=== PATIENT | female | born 1955 | race African-American/Black ===

== ENCOUNTER 2021-10-28 16:13 | Observation (INO) | payer OTHER, MEDICAID ==
[2021-10-28 17:02] LABS: ALT (SGPT) 15 U/L (8-55); AST (SGOT) 17 U/L (5-34); Albumin 3.2 g/dL (3.4-4.8); Alkaline Phosphatase 122 U/L (40-110); Anion Gap 13 mmol/L (10-20); BUN (Urea Nitrogen) 20 mg/dL (9.8-20.1); Bilirubin, Total 0.4 mg/dL (0.2-1.2); Calc. Creatinine Clearance 0 mL/min (70-130); Calcium 9.1 mg/dL (7.8-10.44); Carbon Dioxide 28 mmol/L (23-31); Chloride 105 mmol/L (98-107); Globulin 3.8 g/dL (2.4-3.5); Glucose 80 mg/dL (80-115); Potassium 4.5 mmol/L (3.5-5.1); Sodium 141 mmol/L (136-145)
[2021-10-28 17:14] LABS: #Eosinphils 0.4 10x3/uL (0.0-0.5); #Monocytes 0.8 10x3/uL (0.0-1.1); #Neutrophils 4.8 10x3/uL (1.5-8.4); %Basophils 0.4 % (0.0-2.0); %Eosinophils 5.1 % (0.0-6.0); %Monocytes 11.1 % (0.0-10.0); %Neutrophils 70.1 % (40.0-75.0); Hemoglobin 11.9 g/dL (12.0-15.5); Mean Corpuscular HGB CONC 31.2 g/dL (32.0-36.0); Mean Corpuscular Volume 102.4 fl (81.6-98.3); Mean Platelet Volume 12.7 fl (7.4-10.4); Platelet Count 90 10x3/uL (150-450); RBC Distribution Width 16.3 % (11.5-14.5); Red Blood Cell (RBC) Count 3.72 10x6/uL (3.90-5.03); White Blood Cell (WBC) Count 6.9 10x3/uL (3.5-10.5)
[2021-10-28 17:25] LABS: CKMB 1.3 ng/mL (0-6.6)
[2021-10-28] MEDS ORDERED: Furosemide 20 MG/2 ML VIAL ONE (17:45)
[2021-10-28 18:31] LABS: SARS-CoV-2 NAA Rapid Test Not Detected (NotDetected)
[2021-10-28] MEDS ORDERED: Nitroglycerin 0.4 MG TAB (25 Tab Bottle) SL PRN (19:34)
[2021-10-28 19:53] LABS: D-Dimer Test 2.79 mg/L FEU (0.19-0.50); PTT 25.2 sec (22.0-33.0); Prothrombin Time 10.5 sec (9.5-12.1)
[2021-10-28] MEDS ORDERED: Atorvastatin Calcium 20 MG TAB PO SCH ×2 (21:00→22:15)
[2021-10-28 21:11] LABS: Hemoglobin 12.4 g/dL (12.0-15.5); Platelet Count 90 10x3/uL (150-450)
[2021-10-28] MEDS ORDERED: Oxybutynin 5 MG TAB PO SCH (22:15)
[2021-10-28] MEDS ORDERED: rOPINIRole HCl 1 MG TAB PO SCH (22:15)
[2021-10-28 22:30] VITALS: BMI 68.4
[2021-10-28] MEDS ORDERED: Heparin 10,000 UNITS/ 10 ML VIAL SLOW IVP SCH (23:59)
[2021-10-29] MEDS: Heparin 25,000 units/D5W 500 ML IVPB SCH ×2 (00:48→01:18)
[2021-10-29] MEDS ORDERED: Lorazepam 1 MG TAB PO SCH (04:00)
[2021-10-29 04:13] LABS: Anion Gap 13 mmol/L (10-20); BUN (Urea Nitrogen) 20 mg/dL (9.8-20.1); Calc. Creatinine Clearance 68 mL/min (70-130); Calcium 9.7 mg/dL (7.8-10.44); Carbon Dioxide 28 mmol/L (23-31); Chloride 104 mmol/L (98-107); Glucose 129 mg/dL (80-115); Magnesium 2.1 mg/dL (1.6-2.6); Potassium 4.6 mmol/L (3.5-5.1); Sodium 140 mmol/L (136-145)
[2021-10-29 04:32] LABS: #Basophils 0.1 10x3/uL (0.0-0.2); #Eosinphils 0.4 10x3/uL (0.0-0.5); #Monocytes 0.8 10x3/uL (0.0-1.1); %Basophils 0.7 % (0.0-2.0); %Eosinophils 5.6 % (0.0-6.0); %Lymphocytes 13.9 % (18.0-47.0); %Monocytes 10.3 % (0.0-10.0); %Neutrophils 69.2 % (40.0-75.0); Hemoglobin 12.5 g/dL (12.0-15.5); Mean Corpuscular HGB CONC 31.6 g/dL (32.0-36.0); Mean Corpuscular Hemoglobin 31.9 pg (27.0-33.0); Platelet Count 95 10x3/uL (150-450); RBC Distribution Width 16.3 % (11.5-14.5); Red Blood Cell (RBC) Count 3.92 10x6/uL (3.90-5.03); White Blood Cell (WBC) Count 7.3 10x3/uL (3.5-10.5)
[2021-10-29 05:46] LABS: Platelet Morphology Comment Appears Decreased
[2021-10-29 05:47] LABS: Anisocytosis SLIGHT = 6-15 cells (100X) (0-5/hpf); Macrocytosis SLIGHT = 6-15 cells (100X) (0-5/hpf); Microcytosis SLIGHT = 6-15 cells (100X) (0-5/hpf); Polychromasia SLIGHT = 2-3 cells (100X) (0-2/hpf)
[2021-10-29] MEDS: Furosemide 40 MG TAB PO SCH (08:03)
[2021-10-29 08:58] LABS: PTT 170.8 sec (22.9-36.1)
[2021-10-29] MEDS ORDERED: Enoxaparin Sodium 30 MG/0.3 ML SYRINGE SC SCH (09:00)
[2021-10-29] MEDS ORDERED: Alogliptin 25 MG TAB PO SCH (09:00)
[2021-10-29] MEDS: Ferrous Sulfate 325 MG TAB PO SCH (09:33)
[2021-10-29] MEDS: Folic Acid 1 MG TAB PO SCH (09:34)
[2021-10-29] MEDS: Cyanocobalamin (Vitamin B-12) 1,000 MCG TAB PO SCH (09:35)
[2021-10-29] MEDS: Aspirin Chewable 81 MG TAB PO SCH (12:27)
[2021-10-29] MEDS ORDERED: Acetaminophen 325 MG TAB PO PRN (14:03)
[2021-10-29] MEDS ORDERED: HYDROcodone/Acetaminophen 5/325 mg Tablet PO PRN (14:03)
[2021-10-29] MEDS: ALPRAZolam 0.25 MG TAB PO PRN ×2 (14:59→22:22)
[2021-10-29] MEDS ORDERED: rOPINIRole HCl 1 MG TAB PO SCH (21:00)
[2021-10-29] MEDS ORDERED: Atorvastatin Calcium 20 MG TAB PO SCH (21:00)
[2021-10-29] MEDS ORDERED: Oxybutynin 5 MG TAB PO SCH (21:00)
[2021-10-29] MEDS ORDERED: Melatonin 3 MG TAB PO SCH (21:00)
[2021-10-30] MEDS: Ferrous Sulfate 325 MG TAB PO SCH (08:26)
[2021-10-30] MEDS: ALPRAZolam 0.25 MG TAB PO PRN (08:26)
[2021-10-30] MEDS: Furosemide 40 MG TAB PO SCH (08:27)
[2021-10-30] MEDS: Aspirin Chewable 81 MG TAB PO SCH (08:27)
[2021-10-30] MEDS: Folic Acid 1 MG TAB PO SCH (08:27)
[2021-10-30] MEDS: Cyanocobalamin (Vitamin B-12) 1,000 MCG TAB PO SCH (08:27)
[2021-10-30 16:36] VITALS: BP 140/71; TEMP 97
== END 2021-10-30 19:06 | disposition home health service (06) ==
LOC: CSHERS 16:13 → CSHTELE 21:58 → INTOOBSV 21:58
PROVIDERS: ADMIT Family Medicine; ATTEND Family Medicine
DX: R07.81 Pleurodynia (principal); R06.02 Shortness of breath; I13.0 Hypertensive heart and chronic kidney disease with heart failure and stage 1 through stage 4 chronic kidney disease, or unspecified chronic kidney disease; E11.22 Type 2 diabetes mellitus with diabetic chronic kidney disease; N18.4 Chronic kidney disease, stage 4 (severe); I50.22 Chronic systolic (congestive) heart failure; E78.5 Hyperlipidemia, unspecified; G47.33 Obstructive sleep apnea (adult) (pediatric); J45.20 Mild intermittent asthma, uncomplicated; E66.01 Morbid (severe) obesity due to excess calories; Z68.44 Body mass index [BMI] 60.0-69.9, adult; Z79.82 Long term (current) use of aspirin; Z79.84 Long term (current) use of oral hypoglycemic drugs; Z79.899 Other long term (current) drug therapy; Z88.8 Allergy status to other drugs, medicaments and biological substances; Z91.041 Radiographic dye allergy status; Z20.822 Contact with and (suspected) exposure to COVID-19
CPT/HCPCS: 71045; 78451; 80048; 80053; 82553; 82962 ×3; 83735; 83880; 84484 ×2; 85014; 85018; 85025 ×2; 85049; 85379; 85610; 85730 ×3; 93005 ×2; 93970; 94660; 94760; 96374; 99285; A9540; U0002; 36415; 36416; 93010; 96365; 96366; 96375; 96376; G0378; J1644; J1940

== ENCOUNTER 2021-11-12 00:57 | Inpatient (IN) | payer OTHER, MEDICAID ==
[2021-11-12] MEDS ORDERED: Acetaminophen 325 MG TAB PO PRN (01:33)
[2021-11-12] MEDS ORDERED: Dextrose 5% in Water 1,000 ML IV PRN (01:33)
[2021-11-12] MEDS ORDERED: Dextrose 50% Abboject 50 ML SYRINGE SLOW IVP PRN (01:33)
[2021-11-12] MEDS ORDERED: Senokot S 8.6-50 MG TAB PO PRN (01:33)
[2021-11-12] MEDS ORDERED: Guaifenesin DM 100-10/5 ML UDCUP PO PRN ×2 (01:33→11:29)
[2021-11-12] MEDS ORDERED: Lorazepam 0.5 MG TAB PO PRN (01:37)
[2021-11-12] MEDS: Ondansetron PF 4 MG/2 ML Vial IVP PRN (04:17)
[2021-11-12 05:27] LABS: Anion Gap 13 mmol/L (10-20); BUN (Urea Nitrogen) 14 mg/dL (9.8-20.1); Calc. Creatinine Clearance 68 mL/min (70-130); Calcium 8.7 mg/dL (7.8-10.44); Carbon Dioxide 28 mmol/L (23-31); Chloride 104 mmol/L (98-107); Estimated GFR 25; Glucose 106 mg/dL (80-115); Potassium 5.2 mmol/L (3.5-5.1); Sodium 140 mmol/L (136-145)
[2021-11-12] MEDS: Furosemide 40 MG/4 ML VIAL SLOW IVP SCH ×2 (05:35→13:47)
[2021-11-12] MEDS: Mometasone/Formoterol 200/5 60 PUFF INH SCH ×2 (06:38→21:55)
[2021-11-12] MEDS ORDERED: Alogliptin 6.25 MG TAB PO SCH (09:00)
[2021-11-12] MEDS: hydrALAZINE 25 MG TAB PO SCH ×2 (09:35→21:41)
[2021-11-12] MEDS: Enoxaparin Sodium 30 MG/0.3 ML SYRINGE SC SCH (09:35)
[2021-11-12] MEDS: Escitalopram Oxalate 10 mg Tablet PO SCH (09:36)
[2021-11-12] MEDS: Ferrous Sulfate 325 MG TAB PO SCH (09:36)
[2021-11-12] MEDS: Cyanocobalamin (Vitamin B-12) 1,000 MCG TAB PO SCH (09:36)
[2021-11-12] MEDS: Folic Acid 1 MG TAB PO SCH (09:36)
[2021-11-12] MEDS: Aspirin Chewable 81 MG TAB PO SCH (09:37)
[2021-11-12 09:43] LABS: CKMB 0.9 ng/mL (0-6.6)
[2021-11-12] MEDS ORDERED: Acetaminophen 650 MG Suppository PR PRN (11:29)
[2021-11-12] MEDS ORDERED: diphenhydrAMINE 25 MG CAP PO PRN (11:29)
[2021-11-12] MEDS ORDERED: Moisturizing Cream (Eucerin) 113 GM JAR TOP PRN (11:29)
[2021-11-12] MEDS ORDERED: Artificial Tear Sol 15 ML BOT EA EYE PRN (11:29)
[2021-11-12] MEDS ORDERED: Sodium Chloride 0.65% Nasal 44 ML BOT EA NARE PRN (11:29)
[2021-11-12] MEDS ORDERED: Cepastat Lozenges 1 LOZ PO PRN (11:29)
[2021-11-12] MEDS ORDERED: Ipratropium Oral Inhaler INH PRN (11:29)
[2021-11-12] MEDS ORDERED: HYDROcodone/Acetaminophen 5/325 mg Tablet PO PRN (11:29)
[2021-11-12] MEDS ORDERED: Electrolyte Replacement Protocol 1 EACH FS SCH (11:30)
[2021-11-12] MEDS ORDERED: Pharmacy to Dose REMDESIVIR IVPB PRN (12:41)
[2021-11-12] MEDS ORDERED: Ipratropium/Albuterol Sulfate 4 GM AER IH PRN (13:20)
[2021-11-12] MEDS: Carvedilol 6.25 MG TAB PO SCH (16:45)
[2021-11-12] MEDS: Atorvastatin Calcium 20 MG TAB PO SCH (21:40)
[2021-11-12] MEDS: Calcitriol 0.25 MCG CAP PO SCH (21:40)
[2021-11-12] MEDS: rOPINIRole HCl 1 MG TAB PO SCH (21:41)
[2021-11-12] MEDS: pyridOXINE 50 MG (B6) TAB PO SCH (21:41)
[2021-11-12] MEDS: Oxybutynin 5 MG TAB PO SCH (21:41)
[2021-11-13 04:50] LABS: Actual Bicarbonate (HCO3v) 26 mEq/L (22-28); Base Excess -2.8 mEq/L (-2.0 to +3.0); Calcium, Ionized (venous) 1.18 mmol/L (1.16-1.32); Chloride (VBG) 104 mmol/L (98-106); Critical Notified By: CP.PH; Hemoglobin (Hb) 11.8 g/dL (11.7-16.0); Potassium (VBG) 5.15 mmol/L (3.70-5.30); Puncture Site RBA; Sodium 134.8 mmol/L (133-146); pH (venous) 7.23 (7.32-7.43)
[2021-11-13 04:52] LABS: Hemoglobin 10.9 g/dL (12.0-15.5); Mean Corpuscular HGB CONC 29.1 g/dL (32.0-36.0); Mean Corpuscular Hemoglobin 30.8 pg (27.0-33.0); Mean Corpuscular Volume 105.6 fl (81.6-98.3); Platelet Count 75 10x3/uL (150-450); RBC Distribution Width 15.6 % (11.5-14.5); Red Blood Cell (RBC) Count 3.54 10x6/uL (3.90-5.03); White Blood Cell (WBC) Count 5.1 10x3/uL (3.5-10.5)
[2021-11-13 04:55] LABS: Anion Gap 14 mmol/L (10-20); BUN (Urea Nitrogen) 19 mg/dL (9.8-20.1); Calc. Creatinine Clearance 54 mL/min (70-130); Calcium 8.7 mg/dL (7.8-10.44); Carbon Dioxide 26 mmol/L (23-31); Chloride 103 mmol/L (98-107); Estimated GFR 19; Glucose 89 mg/dL (80-115); Phosphorus 5.1 mg/dL (2.3-4.7); Potassium 5.3 mmol/L (3.5-5.1); Sodium 138 mmol/L (136-145)
[2021-11-13] MEDS: Furosemide 40 MG/4 ML VIAL SLOW IVP SCH ×2 (06:19→14:08)
[2021-11-13] MEDS: Mometasone/Formoterol 200/5 60 PUFF INH SCH ×2 (06:50→22:30)
[2021-11-13 07:13] LABS: MDiff Complete? YES
[2021-11-13 07:15] LABS: Anisocytosis SLIGHT = 6-15 cells (100X) (0-5/hpf); Hypochromia SLIGHT = 6-15 cells (100X) (0-5/hpf); Macrocytosis SLIGHT = 6-15 cells (100X) (0-5/hpf); Stomatocytes SLIGHT = 2-5 cells (100X) (0-1/hpf)
[2021-11-13 07:16] LABS: Platelet Morphology Comment Appears Decreased
[2021-11-13 07:18] LABS: Band 4 % (5-11); Eosinophils 1 % (0-10); Lymphocytes 9 % (21-51); Metamyelocyte 2 % (0-0); Monocytes 19 % (0-10); Neutrophil 62 % (42-75); Reactive Lymphocytes 1 % (0-10)
[2021-11-13] MEDS: Ferrous Sulfate 325 MG TAB PO SCH (09:24)
[2021-11-13] MEDS: Enoxaparin Sodium 30 MG/0.3 ML SYRINGE SC SCH (09:24)
[2021-11-13] MEDS: Sevelamer Carbonate 800 MG TAB PO SCH ×3 (09:24→17:38)
[2021-11-13] MEDS: Carvedilol 6.25 MG TAB PO SCH ×2 (09:24→17:39)
[2021-11-13] MEDS: Aspirin Chewable 81 MG TAB PO SCH (09:24)
[2021-11-13] MEDS: Cyanocobalamin (Vitamin B-12) 1,000 MCG TAB PO SCH (09:24)
[2021-11-13] MEDS: Folic Acid 1 MG TAB PO SCH (09:25)
[2021-11-13] MEDS: hydrALAZINE 25 MG TAB PO SCH ×2 (09:25→22:32)
[2021-11-13] MEDS: Escitalopram Oxalate 10 mg Tablet PO SCH (09:25)
[2021-11-13] MEDS: Ascorbic Acid 500 mg Chewable Tablet PO SCH (09:25)
[2021-11-13] MEDS: Dexamethasone 20 MG/5 ML VIAL SLOW IVP SCH (09:25)
[2021-11-13 10:43] LABS: Actual Bicarbonate (HCO3a) 26.4 mEq/L (22-28); Base Excess (BEa) -3.7 mEq/L (-2.0 to +3.0); CO2 Tension 76.4 mmHg (35.0-45.0); Calcium, Ionized (arterial) 1.23 mmol/L (1.12-1.30); Carboxyhemoglobin (COHb) 1.1 gm% (0.0-3.0); Hemoglobin (Hb) 11.9 g/dL (12.0-16.0); O2 Tension (PaO2), arterial 98.5 mmHg (> 80.0); Puncture Site LRA; pH, Arterial 7.16 (7.35-7.45)
[2021-11-13] MEDS ORDERED: Magnesium 2 GM/50 ML(in water) 2 GM in Premix Bag 1 BAG IVPB SCH (11:00)
[2021-11-13] MEDS ORDERED: Magnesium 2 GM/50 ML BAG (IN WATER) ONE (12:02)
[2021-11-13 13:11] LABS: Bilirubin Neg (Negative); Blood, Urine 25 (Negative); Glucose, Urine (Dipstick) Normal (Negative); Ketone, Urine Negative (Negative); Leukocyte Negative (Negative); Nitrite Negative (Negative); Protein, Urine (Dipstick) 100 mg/dl (Neg-Trace); Urobilinogen Normal mg/dL (Less than 2)
[2021-11-13 13:12] LABS: Clarity Clear (Clear)
[2021-11-13 13:14] LABS: Anion Gap 14 mmol/L (10-20); BUN (Urea Nitrogen) 22 mg/dL (9.8-20.1); Calc. Creatinine Clearance 50 mL/min (70-130); Calcium 8.8 mg/dL (7.8-10.44); Carbon Dioxide 26 mmol/L (23-31); Chloride 103 mmol/L (98-107); Estimated GFR 18; Glucose 95 mg/dL (80-115); Potassium 5.3 mmol/L (3.5-5.1); Sodium 138 mmol/L (136-145)
[2021-11-13 13:21] LABS: Bacteria/HPF None Seen HPF (None Seen); RBC/HPF 0-3 HPF (0-3); Squamous Epithelial 0-3 HPF (0-3); WBC/HPF None Seen HPF (0-3)
[2021-11-13] MEDS: Atorvastatin Calcium 20 MG TAB PO SCH (22:30)
[2021-11-13] MEDS: pyridOXINE 50 MG (B6) TAB PO SCH (22:31)
[2021-11-13] MEDS: Calcitriol 0.25 MCG CAP PO SCH (22:31)
[2021-11-13] MEDS: Oxybutynin 5 MG TAB PO SCH (22:31)
[2021-11-13] MEDS: rOPINIRole HCl 1 MG TAB PO SCH (22:32)
[2021-11-14] MEDS ORDERED: Calcium Gluc 4.6 MEQ/10 ML (100 MG/ML) SLOW IVP SCH (01:15)
[2021-11-14 01:20] LABS: Actual Bicarbonate (HCO3v) 29 mEq/L (22-28); Base Excess 0.6 mEq/L (-2.0 to +3.0); Calcium, Ionized (venous) 1.12 mmol/L (1.16-1.32); Chloride (VBG) 102 mmol/L (98-106); Hemoglobin (Hb) 11.3 g/dL (11.7-16.0); Potassium (VBG) 4.98 mmol/L (3.70-5.30); Puncture Site Other Site; Sodium 131.9 mmol/L (133-146); pH (venous) 7.25 (7.32-7.43)
[2021-11-14 01:38] LABS: Anion Gap 14 mmol/L (10-20); BUN (Urea Nitrogen) 28 mg/dL (9.8-20.1); Calc. Creatinine Clearance 46 mL/min (70-130); Calcium 8.6 mg/dL (7.8-10.44); Carbon Dioxide 27 mmol/L (23-31); Chloride 99 mmol/L (98-107); Estimated GFR 16; Glucose 88 mg/dL (80-115); Magnesium 2.2 mg/dL (1.6-2.6); Potassium 5.1 mmol/L (3.5-5.1); Sodium 135 mmol/L (136-145)
[2021-11-14] MEDS: Benzonatate 100 MG CAP PO PRN (05:00)
[2021-11-14] MEDS ORDERED: Metoprolol Tartrate 25 MG TAB PO SCH (05:00)
[2021-11-14] MEDS: Furosemide 40 MG/4 ML VIAL SLOW IVP SCH ×2 (05:01→14:44)
[2021-11-14 05:22] LABS: Anion Gap 15 mmol/L (10-20); BUN (Urea Nitrogen) 29 mg/dL (9.8-20.1); Calc. Creatinine Clearance 45 mL/min (70-130); Calcium 8.5 mg/dL (7.8-10.44); Carbon Dioxide 25 mmol/L (23-31); Chloride 100 mmol/L (98-107); Estimated GFR 16; Glucose 80 mg/dL (80-115); Sodium 135 mmol/L (136-145)
[2021-11-14 05:28] LABS: Hemoglobin 10.4 g/dL (12.0-15.5); Mean Corpuscular HGB CONC 30.3 g/dL (32.0-36.0); Mean Corpuscular Hemoglobin 31.1 pg (27.0-33.0); Mean Corpuscular Volume 102.7 fl (81.6-98.3); Mean Platelet Volume 12.2 fl (7.4-10.4); Platelet Count 89 10x3/uL (150-450); RBC Distribution Width 15.7 % (11.5-14.5); Red Blood Cell (RBC) Count 3.34 10x6/uL (3.90-5.03); White Blood Cell (WBC) Count 4.4 10x3/uL (3.5-10.5)
[2021-11-14 07:10] LABS: MDiff Complete? YES
[2021-11-14 07:11] LABS: Platelet Morphology Comment Appears Decreased
[2021-11-14 07:15] LABS: Band 12 % (5-11); Eosinophils 1 % (0-10); Lymphocytes 8 % (21-51); Metamyelocyte 1 % (0-0); Monocytes 21 % (0-10); Neutrophil 55 % (42-75); Reactive Lymphocytes 2 % (0-10)
[2021-11-14] MEDS: Mometasone/Formoterol 200/5 60 PUFF INH SCH ×2 (07:23→21:19)
[2021-11-14] MEDS: Enoxaparin Sodium 30 MG/0.3 ML SYRINGE SC SCH (08:19)
[2021-11-14] MEDS: Dexamethasone 20 MG/5 ML VIAL SLOW IVP SCH (08:19)
[2021-11-14] MEDS: Cyanocobalamin (Vitamin B-12) 1,000 MCG TAB PO SCH (08:20)
[2021-11-14] MEDS: hydrALAZINE 25 MG TAB PO SCH ×2 (08:20→20:37)
[2021-11-14] MEDS: Ferrous Sulfate 325 MG TAB PO SCH (08:20)
[2021-11-14] MEDS: Sevelamer Carbonate 800 MG TAB PO SCH ×3 (08:20→18:08)
[2021-11-14] MEDS: Aspirin Chewable 81 MG TAB PO SCH (08:20)
[2021-11-14] MEDS: Ascorbic Acid 500 mg Chewable Tablet PO SCH (08:20)
[2021-11-14] MEDS: Carvedilol 6.25 MG TAB PO SCH ×2 (08:20→18:08)
[2021-11-14] MEDS: Folic Acid 1 MG TAB PO SCH (08:20)
[2021-11-14] MEDS: Escitalopram Oxalate 10 mg Tablet PO SCH (08:20)
[2021-11-14 13:17] LABS: IFE-Serum Interpretation Note: (.); IgA - Total IgA (Sendout) 366 mg/dL (87-352); Immunoglobulin - G (Sendout) 2183 mg/dL (586-1602); Immunoglobulin - M (Sendout) 86 mg/dL (26-217)
[2021-11-14 13:42] LABS: A/G Ratio 0.7 (0.7-1.7); Albumin 2.9 g/dL (2.9-4.4); Alpha 1 0.4 g/dL (0.0-0.4); Alpha 2 0.8 g/dL (0.4-1.0); Beta 1.1 g/dL (0.7-1.3); Gamma 2.1 g/dL (0.4-1.8); Globulin, Total 4.4 g/dL (2.2-3.9); M-Spike Not Observed g/dL (Not Observed); Protein Electrophoresis Intrp Note: (.)
[2021-11-14] MEDS: Ondansetron PF 4 MG/2 ML Vial IVP PRN (18:15)
[2021-11-14] MEDS: Calcitriol 0.25 MCG CAP PO SCH (20:36)
[2021-11-14] MEDS: Atorvastatin Calcium 20 MG TAB PO SCH (20:36)
[2021-11-14] MEDS: Oxybutynin 5 MG TAB PO SCH (20:37)
[2021-11-14] MEDS: pyridOXINE 50 MG (B6) TAB PO SCH (20:38)
[2021-11-14] MEDS: rOPINIRole HCl 1 MG TAB PO SCH (20:38)
[2021-11-15 04:27] LABS: Hemoglobin 10.6 g/dL (12.0-15.5); Mean Corpuscular HGB CONC 30.5 g/dL (32.0-36.0); Mean Corpuscular Volume 101.5 fl (81.6-98.3); Platelet Count 96 10x3/uL (150-450); RBC Distribution Width 15.6 % (11.5-14.5); Red Blood Cell (RBC) Count 3.42 10x6/uL (3.90-5.03); White Blood Cell (WBC) Count 3.7 10x3/uL (3.5-10.5)
[2021-11-15 04:36] LABS: Anion Gap 15 mmol/L (10-20); BUN (Urea Nitrogen) 38 mg/dL (9.8-20.1); Calc. Creatinine Clearance 43 mL/min (70-130); Calcium 8.7 mg/dL (7.8-10.44); Carbon Dioxide 27 mmol/L (23-31); Chloride 100 mmol/L (98-107); Estimated GFR 14; Glucose 95 mg/dL (80-115); Potassium 4.6 mmol/L (3.5-5.1); Sodium 137 mmol/L (136-145)
[2021-11-15 06:10] LABS: Mean Platelet Volume 12.5 fl (7.4-10.4)
[2021-11-15 06:11] LABS: MDiff Complete? YES
[2021-11-15 06:13] LABS: Platelet Morphology Comment Appears Decreased
[2021-11-15 06:17] LABS: Band 6 % (5-11); Lymphocytes 12 % (21-51); Monocytes 18 % (0-10); Neutrophil 63 % (42-75); Reactive Lymphocytes 1 % (0-10)
[2021-11-15] MEDS: Furosemide 40 MG/4 ML VIAL SLOW IVP SCH (06:35)
[2021-11-15] MEDS: Mometasone/Formoterol 200/5 60 PUFF INH SCH (08:11)
[2021-11-15] MEDS: Cyanocobalamin (Vitamin B-12) 1,000 MCG TAB PO SCH (09:00)
[2021-11-15] MEDS ORDERED: Furosemide 40 MG/4 ML VIAL SLOW IVP SCH (09:00)
[2021-11-15] MEDS: Escitalopram Oxalate 10 mg Tablet PO SCH (09:00)
[2021-11-15] MEDS: Albumin 25% 25 GM/100 ML BOT IVPB SCH ×3 (09:00→20:51)
[2021-11-15] MEDS: Ascorbic Acid 500 mg Chewable Tablet PO SCH (09:01)
[2021-11-15] MEDS: hydrALAZINE 25 MG TAB PO SCH ×2 (09:01→20:51)
[2021-11-15] MEDS: Aspirin Chewable 81 MG TAB PO SCH (09:01)
[2021-11-15] MEDS: Carvedilol 6.25 MG TAB PO SCH ×2 (09:01→18:06)
[2021-11-15] MEDS: Sevelamer Carbonate 800 MG TAB PO SCH ×3 (09:01→18:06)
[2021-11-15] MEDS: Folic Acid 1 MG TAB PO SCH (09:01)
[2021-11-15] MEDS: Dexamethasone 20 MG/5 ML VIAL SLOW IVP SCH (09:02)
[2021-11-15] MEDS: Ferrous Sulfate 325 MG TAB PO SCH (09:02)
[2021-11-15] MEDS: Enoxaparin Sodium 30 MG/0.3 ML SYRINGE SC SCH (09:04)
[2021-11-15] MEDS: Atorvastatin Calcium 20 MG TAB PO SCH (20:51)
[2021-11-15] MEDS: Calcitriol 0.25 MCG CAP PO SCH (20:51)
[2021-11-15] MEDS: rOPINIRole HCl 1 MG TAB PO SCH (20:52)
[2021-11-15] MEDS: Oxybutynin 5 MG TAB PO SCH (20:52)
[2021-11-15] MEDS: pyridOXINE 50 MG (B6) TAB PO SCH (20:52)
[2021-11-16] MEDS: Albumin 25% 25 GM/100 ML BOT IVPB SCH ×4 (03:50→22:19)
[2021-11-16] MEDS: Mometasone/Formoterol 200/5 60 PUFF INH SCH ×3 (04:06→20:20)
[2021-11-16 04:28] LABS: #Monocytes 0.6 10x3/uL (0.0-1.1); #Neutrophils 3.3 10x3/uL (1.5-8.4); %Lymphocytes 9.8 % (18.0-47.0); %Monocytes 13.3 % (0.0-10.0); %Neutrophils 76.7 % (40.0-75.0); Hemoglobin 10.6 g/dL (12.0-15.5); Mean Corpuscular HGB CONC 31.6 g/dL (32.0-36.0); Mean Corpuscular Hemoglobin 31.3 pg (27.0-33.0); Mean Corpuscular Volume 98.8 fl (81.6-98.3); Mean Platelet Volume 12.5 fl (7.4-10.4); Platelet Count 89 10x3/uL (150-450); RBC Distribution Width 15.5 % (11.5-14.5); Red Blood Cell (RBC) Count 3.39 10x6/uL (3.90-5.03); White Blood Cell (WBC) Count 4.3 10x3/uL (3.5-10.5)
[2021-11-16 04:44] LABS: Anion Gap 16 mmol/L (10-20); BUN (Urea Nitrogen) 42 mg/dL (9.8-20.1); Calc. Creatinine Clearance 44 mL/min (70-130); Calcium 8.7 mg/dL (7.8-10.44); Carbon Dioxide 26 mmol/L (23-31); Chloride 99 mmol/L (98-107); Estimated GFR 15; Glucose 90 mg/dL (80-115); Potassium 4.7 mmol/L (3.5-5.1); Sodium 136 mmol/L (136-145)
[2021-11-16] MEDS: Sevelamer Carbonate 800 MG TAB PO SCH ×4 (09:13→16:31)
[2021-11-16] MEDS: Ascorbic Acid 500 mg Chewable Tablet PO SCH (09:13)
[2021-11-16] MEDS: Carvedilol 6.25 MG TAB PO SCH ×2 (09:13→16:31)
[2021-11-16] MEDS: hydrALAZINE 25 MG TAB PO SCH ×2 (09:14→20:27)
[2021-11-16] MEDS: Cyanocobalamin (Vitamin B-12) 1,000 MCG TAB PO SCH (09:14)
[2021-11-16] MEDS: Escitalopram Oxalate 10 mg Tablet PO SCH (09:14)
[2021-11-16] MEDS: Aspirin Chewable 81 MG TAB PO SCH (09:14)
[2021-11-16] MEDS: Dexamethasone 20 MG/5 ML VIAL SLOW IVP SCH (09:14)
[2021-11-16] MEDS: Ferrous Sulfate 325 MG TAB PO SCH (09:14)
[2021-11-16] MEDS: Folic Acid 1 MG TAB PO SCH (09:14)
[2021-11-16] MEDS: Furosemide 20 MG/2 ML VIAL SLOW IVP SCH (09:17)
[2021-11-16] MEDS: Enoxaparin Sodium 30 MG/0.3 ML SYRINGE SC SCH (09:18)
[2021-11-16] MEDS: Acetaminophen 500 MG TAB PO PRN (18:04)
[2021-11-16] MEDS: pyridOXINE 50 MG (B6) TAB PO SCH (20:27)
[2021-11-16] MEDS: Oxybutynin 5 MG TAB PO SCH (20:27)
[2021-11-16] MEDS: Calcitriol 0.25 MCG CAP PO SCH (20:27)
[2021-11-16] MEDS: Atorvastatin Calcium 20 MG TAB PO SCH (20:28)
[2021-11-16] MEDS: rOPINIRole HCl 1 MG TAB PO SCH (20:28)
[2021-11-16] MEDS ORDERED: ALPRAZolam 0.25 MG TAB PO SCH (22:15)
[2021-11-16] MEDS: Benzonatate 100 MG CAP PO PRN (22:42)
[2021-11-17] MEDS: Albumin 25% 25 GM/100 ML BOT IVPB SCH (04:14)
[2021-11-17 04:57] LABS: Anion Gap 13 mmol/L (10-20); BUN (Urea Nitrogen) 45 mg/dL (9.8-20.1); Calc. Creatinine Clearance 49 mL/min (70-130); Carbon Dioxide 28 mmol/L (23-31); Chloride 99 mmol/L (98-107); Estimated GFR 17; Glucose 89 mg/dL (80-115); Sodium 136 mmol/L (136-145)
[2021-11-17 05:08] LABS: #Monocytes 0.4 10x3/uL (0.0-1.1); #Neutrophils 3.6 10x3/uL (1.5-8.4); %Eosinophils 0.2 % (0.0-6.0); %Lymphocytes 7.5 % (18.0-47.0); %Monocytes 8.5 % (0.0-10.0); %Neutrophils 83.3 % (40.0-75.0); Hemoglobin 10.9 g/dL (12.0-15.5); Mean Corpuscular Volume 96.9 fl (81.6-98.3); Mean Platelet Volume 12.7 fl (7.4-10.4); Platelet Count 78 10x3/uL (150-450); RBC Distribution Width 15.6 % (11.5-14.5); Red Blood Cell (RBC) Count 3.52 10x6/uL (3.90-5.03); White Blood Cell (WBC) Count 4.3 10x3/uL (3.5-10.5)
[2021-11-17] MEDS ORDERED: Chloraseptic Spray 180 ml Bottle PO PRN (06:14)
[2021-11-17] MEDS: Mometasone/Formoterol 200/5 60 PUFF INH SCH ×2 (07:50→19:40)
[2021-11-17] MEDS ORDERED: Fluconazole In NaCl,Iso-Osm 200 MG in Premix Bag 1 BAG IVPB SCH (08:00)
[2021-11-17] MEDS: Dexamethasone 20 MG/5 ML VIAL SLOW IVP SCH (09:14)
[2021-11-17] MEDS: Enoxaparin Sodium 30 MG/0.3 ML SYRINGE SC SCH (09:14)
[2021-11-17] MEDS: Furosemide 20 MG/2 ML VIAL SLOW IVP SCH (09:14)
[2021-11-17] MEDS: Sevelamer Carbonate 800 MG TAB PO SCH ×3 (09:15→17:19)
[2021-11-17] MEDS: Aspirin Chewable 81 MG TAB PO SCH (09:15)
[2021-11-17] MEDS: Ferrous Sulfate 325 MG TAB PO SCH (09:15)
[2021-11-17] MEDS: Ascorbic Acid 500 mg Chewable Tablet PO SCH (09:15)
[2021-11-17] MEDS: Carvedilol 6.25 MG TAB PO SCH ×2 (09:16→17:19)
[2021-11-17] MEDS: Folic Acid 1 MG TAB PO SCH (09:16)
[2021-11-17] MEDS: hydrALAZINE 25 MG TAB PO SCH ×2 (09:16→22:40)
[2021-11-17] MEDS: Cyanocobalamin (Vitamin B-12) 1,000 MCG TAB PO SCH (09:16)
[2021-11-17] MEDS: Escitalopram Oxalate 10 mg Tablet PO SCH (09:16)
[2021-11-17 16:13] LABS: Albumin-Ur 67.2 % (.); Alpha 1 - Ur 0.9 % (.); Alpha 2 - Ur 3.4 % (.); Beta-Ur 8.9 % (.); Gamma-Ur 19.7 % (.); M-Spike,% Not Observed % (Not Observed); Protein, Urine 43.5 mg/dL (Not Estab.)
[2021-11-17] MEDS: hydrALAZINE 20 MG/ML VIAL SLOW IVP PRN (19:34)
[2021-11-17] MEDS: Atorvastatin Calcium 20 MG TAB PO SCH (20:04)
[2021-11-17] MEDS: Oxybutynin 5 MG TAB PO SCH (20:04)
[2021-11-17] MEDS: Calcitriol 0.25 MCG CAP PO SCH (20:04)
[2021-11-17] MEDS: rOPINIRole HCl 1 MG TAB PO SCH (20:04)
[2021-11-17] MEDS: pyridOXINE 50 MG (B6) TAB PO SCH (20:05)
[2021-11-17] MEDS: Benzonatate 100 MG CAP PO PRN (20:07)
[2021-11-17] MEDS: Acetaminophen 500 MG TAB PO PRN (20:53)
[2021-11-17] MEDS ORDERED: Morphine 2 MG/ML VIAL SLOW IVP SCH (23:45)
[2021-11-18 04:43] LABS: #Monocytes 0.4 10x3/uL (0.0-1.1); #Neutrophils 3.7 10x3/uL (1.5-8.4); %Basophils 0.2 % (0.0-2.0); %Lymphocytes 8.6 % (18.0-47.0); %Neutrophils 81.5 % (40.0-75.0); Hemoglobin 12.3 g/dL (12.0-15.5); Mean Corpuscular HGB CONC 32.3 g/dL (32.0-36.0); Mean Corpuscular Hemoglobin 30.9 pg (27.0-33.0); Mean Corpuscular Volume 95.7 fl (81.6-98.3); Mean Platelet Volume 12.7 fl (7.4-10.4); RBC Distribution Width 15.6 % (11.5-14.5); Red Blood Cell (RBC) Count 3.98 10x6/uL (3.90-5.03); White Blood Cell (WBC) Count 4.6 10x3/uL (3.5-10.5)
[2021-11-18 04:45] LABS: Platelet Count 76 10x3/uL (150-450)
[2021-11-18 04:48] LABS: Anion Gap 16 mmol/L (10-20); BUN (Urea Nitrogen) 46 mg/dL (9.8-20.1); Calc. Creatinine Clearance 56 mL/min (70-130); Carbon Dioxide 29 mmol/L (23-31); Chloride 101 mmol/L (98-107); Estimated GFR 20; Glucose 96 mg/dL (80-115); Potassium 4.5 mmol/L (3.5-5.1); Sodium 141 mmol/L (136-145)
[2021-11-18] MEDS: hydrALAZINE 20 MG/ML VIAL SLOW IVP PRN ×3 (05:15→17:06)
[2021-11-18] MEDS: Mometasone/Formoterol 200/5 60 PUFF INH SCH ×2 (07:26→20:10)
[2021-11-18] MEDS: Escitalopram Oxalate 10 mg Tablet PO SCH (08:59)
[2021-11-18] MEDS: Aspirin Chewable 81 MG TAB PO SCH (08:59)
[2021-11-18] MEDS: Sevelamer Carbonate 800 MG TAB PO SCH ×3 (08:59→17:07)
[2021-11-18] MEDS: Enoxaparin Sodium 40 MG/0.4 ML SYRINGE SC SCH (08:59)
[2021-11-18] MEDS: Ascorbic Acid 500 mg Chewable Tablet PO SCH (08:59)
[2021-11-18] MEDS: Cyanocobalamin (Vitamin B-12) 1,000 MCG TAB PO SCH (09:00)
[2021-11-18] MEDS: hydrALAZINE 25 MG TAB PO SCH ×2 (09:00→21:21)
[2021-11-18] MEDS ORDERED: Fluconazole In NaCl,Iso-Osm 100 MG in Premix Bag 1 BAG IVPB SCH (09:00)
[2021-11-18] MEDS: Ferrous Sulfate 325 MG TAB PO SCH (09:00)
[2021-11-18] MEDS: Folic Acid 1 MG TAB PO SCH (09:00)
[2021-11-18] MEDS: Carvedilol 6.25 MG TAB PO SCH ×2 (09:00→17:07)
[2021-11-18] MEDS: Dexamethasone 20 MG/5 ML VIAL SLOW IVP SCH (09:01)
[2021-11-18] MEDS: Furosemide 20 MG/2 ML VIAL SLOW IVP SCH (09:01)
[2021-11-18] MEDS: Fluconazole In NaCl,Iso-Osm 100 MG in Admixture Fee 1 EACH IVPB SCH (09:01)
[2021-11-18] MEDS: Acetaminophen 500 MG TAB PO PRN (17:23)
[2021-11-18] MEDS: rOPINIRole HCl 1 MG TAB PO SCH (21:21)
[2021-11-18] MEDS: Oxybutynin 5 MG TAB PO SCH (21:21)
[2021-11-18] MEDS: Atorvastatin Calcium 20 MG TAB PO SCH (21:22)
[2021-11-18] MEDS: Calcitriol 0.25 MCG CAP PO SCH (21:22)
[2021-11-18] MEDS: pyridOXINE 50 MG (B6) TAB PO SCH (21:25)
[2021-11-19] MEDS: hydrALAZINE 20 MG/ML VIAL SLOW IVP PRN ×2 (00:17→05:30)
[2021-11-19 04:47] LABS: Anion Gap 16 mmol/L (10-20); BUN (Urea Nitrogen) 55 mg/dL (9.8-20.1); Calc. Creatinine Clearance 55 mL/min (70-130); Calcium 9.1 mg/dL (7.8-10.44); Carbon Dioxide 28 mmol/L (23-31); Chloride 102 mmol/L (98-107); Estimated GFR 20; Glucose 105 mg/dL (80-115); Potassium 4.5 mmol/L (3.5-5.1); Sodium 141 mmol/L (136-145)
[2021-11-19] MEDS: Mometasone/Formoterol 200/5 60 PUFF INH SCH ×2 (07:13→18:30)
[2021-11-19] MEDS: Enoxaparin Sodium 40 MG/0.4 ML SYRINGE SC SCH (08:24)
[2021-11-19] MEDS: Folic Acid 1 MG TAB PO SCH (08:25)
[2021-11-19] MEDS: Ascorbic Acid 500 mg Chewable Tablet PO SCH (08:25)
[2021-11-19] MEDS: Carvedilol 6.25 MG TAB PO SCH ×2 (08:25→16:58)
[2021-11-19] MEDS: Aspirin Chewable 81 MG TAB PO SCH (08:25)
[2021-11-19] MEDS: Dexamethasone 20 MG/5 ML VIAL SLOW IVP SCH (08:26)
[2021-11-19] MEDS: Escitalopram Oxalate 10 mg Tablet PO SCH (08:26)
[2021-11-19] MEDS: hydrALAZINE 25 MG TAB PO SCH ×3 (08:26→21:22)
[2021-11-19] MEDS: Ferrous Sulfate 325 MG TAB PO SCH (08:26)
[2021-11-19] MEDS: Cyanocobalamin (Vitamin B-12) 1,000 MCG TAB PO SCH (08:26)
[2021-11-19] MEDS: Furosemide 20 MG/2 ML VIAL SLOW IVP SCH (08:27)
[2021-11-19] MEDS: Sevelamer Carbonate 800 MG TAB PO SCH ×3 (08:28→16:50)
[2021-11-19] MEDS: Fluconazole In NaCl,Iso-Osm 100 MG in Admixture Fee 1 EACH IVPB SCH (16:57)
[2021-11-19] MEDS ORDERED: Acetaminophen 650 MG/20.3 ML UDCUP PO PRN (20:26)
[2021-11-19] MEDS: Calcitriol 0.25 MCG CAP PO SCH (21:23)
[2021-11-19] MEDS: pyridOXINE 50 MG (B6) TAB PO SCH (21:23)
[2021-11-19] MEDS: Oxybutynin 5 MG TAB PO SCH (21:23)
[2021-11-19] MEDS: rOPINIRole HCl 1 MG TAB PO SCH (21:24)
[2021-11-19] MEDS: Atorvastatin Calcium 20 MG TAB PO SCH (21:24)
[2021-11-20 04:35] LABS: #Monocytes 0.7 10x3/uL (0.0-1.1); #Neutrophils 14.9 10x3/uL (1.5-8.4); %Basophils 0.1 % (0.0-2.0); %Monocytes 4.2 % (0.0-10.0); %Neutrophils 93.1 % (40.0-75.0); Hemoglobin 12.8 g/dL (12.0-15.5); Mean Corpuscular HGB CONC 31.9 g/dL (32.0-36.0); Mean Corpuscular Hemoglobin 30.8 pg (27.0-33.0); Mean Corpuscular Volume 96.4 fl (81.6-98.3); Mean Platelet Volume 13.1 fl (7.4-10.4); Platelet Count 87 10x3/uL (150-450); RBC Distribution Width 15.8 % (11.5-14.5); Red Blood Cell (RBC) Count 4.16 10x6/uL (3.90-5.03)
[2021-11-20 04:42] LABS: Anion Gap 13 mmol/L (10-20); BUN (Urea Nitrogen) 66 mg/dL (9.8-20.1); Calc. Creatinine Clearance 52 mL/min (70-130); Calcium 8.8 mg/dL (7.8-10.44); Carbon Dioxide 30 mmol/L (23-31); Chloride 102 mmol/L (98-107); Estimated GFR 19; Glucose 142 mg/dL (80-115); Potassium 4.3 mmol/L (3.5-5.1); Sodium 141 mmol/L (136-145)
[2021-11-20] MEDS: hydrALAZINE 25 MG TAB PO SCH ×3 (07:08→20:36)
[2021-11-20] MEDS: Carvedilol 6.25 MG TAB PO SCH ×2 (07:08→17:32)
[2021-11-20] MEDS: Mometasone/Formoterol 200/5 60 PUFF INH SCH ×3 (08:30→21:28)
[2021-11-20 10:21] LABS: #Monocytes 0.7 10x3/uL (0.0-1.1); #Neutrophils 12.8 10x3/uL (1.5-8.4); %Basophils 0.1 % (0.0-2.0); %Lymphocytes 3.1 % (18.0-47.0); %Monocytes 4.9 % (0.0-10.0); %Neutrophils 91.2 % (40.0-75.0); Hemoglobin 13.1 g/dL (12.0-15.5); Mean Corpuscular HGB CONC 31.6 g/dL (32.0-36.0); Mean Corpuscular Hemoglobin 30.7 pg (27.0-33.0); Mean Corpuscular Volume 97.2 fl (81.6-98.3); Mean Platelet Volume 12.4 fl (7.4-10.4); Platelet Count 82 10x3/uL (150-450); RBC Distribution Width 15.7 % (11.5-14.5); Red Blood Cell (RBC) Count 4.27 10x6/uL (3.90-5.03); White Blood Cell (WBC) Count 14.1 10x3/uL (3.5-10.5)
[2021-11-20] MEDS: Ferrous Sulfate 325 MG TAB PO SCH (10:31)
[2021-11-20] MEDS: Aspirin Chewable 81 MG TAB PO SCH (10:31)
[2021-11-20] MEDS: Escitalopram Oxalate 10 mg Tablet PO SCH (10:31)
[2021-11-20] MEDS: Folic Acid 1 MG TAB PO SCH (10:32)
[2021-11-20] MEDS: Fluconazole In NaCl,Iso-Osm 100 MG in Admixture Fee 1 EACH IVPB SCH (10:32)
[2021-11-20] MEDS: Ascorbic Acid 500 mg Chewable Tablet PO SCH (10:32)
[2021-11-20] MEDS: Enoxaparin Sodium 40 MG/0.4 ML SYRINGE SC SCH (10:32)
[2021-11-20] MEDS: Sevelamer Carbonate 800 MG TAB PO SCH ×3 (10:32→17:32)
[2021-11-20] MEDS: Cyanocobalamin (Vitamin B-12) 1,000 MCG TAB PO SCH (10:32)
[2021-11-20] MEDS: Dexamethasone 20 MG/5 ML VIAL SLOW IVP SCH (10:32)
[2021-11-20 11:49] LABS: Bilirubin Neg (Negative); Blood, Urine 50 (Negative); Clarity Cloudy (Clear); Glucose, Urine (Dipstick) Normal (Negative); Ketone, Urine 5 mg/dL (Negative); Leukocyte 500 (Negative); Nitrite Negative (Negative); Protein, Urine (Dipstick) 500 mg/dl (Neg-Trace); Urobilinogen Normal mg/dL (Less than 2)
[2021-11-20] MEDS ORDERED: VANCOMYCIN 2 GRAM/400 ML BAG 2 GM in Premix Bag 1 BAG IVPB SCH (12:15)
[2021-11-20 12:38] LABS: Bacteria/HPF 4+ HPF (None Seen); Squamous Epithelial 0-3 HPF (0-3)
[2021-11-20 12:39] LABS: Transitional Epithelial 0-3 HPF (None Seen)
[2021-11-20 12:40] LABS: Urine Culture Reflex Yes Yes
[2021-11-20] MEDS: Cefepime 1 GM in Sodium Chloride 0.9% 100 ML IVPB SCH (14:38)
[2021-11-20] MEDS: Calcitriol 0.25 MCG CAP PO SCH (20:36)
[2021-11-20] MEDS: Atorvastatin Calcium 20 MG TAB PO SCH (20:37)
[2021-11-20] MEDS: pyridOXINE 50 MG (B6) TAB PO SCH (20:37)
[2021-11-20] MEDS: rOPINIRole HCl 1 MG TAB PO SCH (20:37)
[2021-11-20] MEDS: Oxybutynin 5 MG TAB PO SCH (20:37)
[2021-11-20] MEDS ORDERED: Vancomycin DOSE BY LEVEL IVPB PRN (21:00)
[2021-11-21] MEDS: Cefepime 1 GM in Sodium Chloride 0.9% 100 ML IVPB SCH ×2 (00:36→23:47)
[2021-11-21 05:16] LABS: #Monocytes 0.7 10x3/uL (0.0-1.1); #Neutrophils 11.4 10x3/uL (1.5-8.4); %Basophils 0.1 % (0.0-2.0); %Lymphocytes 2.2 % (18.0-47.0); %Monocytes 5.7 % (0.0-10.0); %Neutrophils 91.4 % (40.0-75.0); Mean Corpuscular HGB CONC 31.9 g/dL (32.0-36.0); Mean Corpuscular Hemoglobin 30.8 pg (27.0-33.0); Mean Corpuscular Volume 96.7 fl (81.6-98.3); Mean Platelet Volume 13.3 fl (7.4-10.4); Platelet Count 70 10x3/uL (150-450); Red Blood Cell (RBC) Count 4.22 10x6/uL (3.90-5.03); White Blood Cell (WBC) Count 12.4 10x3/uL (3.5-10.5)
[2021-11-21 05:22] LABS: Anion Gap 13 mmol/L (10-20); BUN (Urea Nitrogen) 76 mg/dL (9.8-20.1); Calc. Creatinine Clearance 44 mL/min (70-130); Calcium 8.6 mg/dL (7.8-10.44); Carbon Dioxide 27 mmol/L (23-31); Chloride 104 mmol/L (98-107); Estimated GFR 16; Glucose 119 mg/dL (80-115); Potassium 4.3 mmol/L (3.5-5.1); Sodium 140 mmol/L (136-145)
[2021-11-21] MEDS ORDERED: Enoxaparin Sodium 30 MG/0.3 ML SYRINGE SC SCH (09:00)
[2021-11-21] MEDS: Mometasone/Formoterol 200/5 60 PUFF INH SCH ×2 (09:29→18:55)
[2021-11-21] MEDS: hydrALAZINE 25 MG TAB PO SCH ×3 (10:13→22:24)
[2021-11-21] MEDS: Escitalopram Oxalate 10 mg Tablet PO SCH (10:13)
[2021-11-21] MEDS: Sodium Chloride 0.9% 1,000 ML IV SCH ×3 (10:13→23:47)
[2021-11-21] MEDS: Folic Acid 1 MG TAB PO SCH (10:13)
[2021-11-21] MEDS: Ferrous Sulfate 325 MG TAB PO SCH (10:13)
[2021-11-21] MEDS: Ascorbic Acid 500 mg Chewable Tablet PO SCH (10:13)
[2021-11-21] MEDS: Dexamethasone 20 MG/5 ML VIAL SLOW IVP SCH (10:14)
[2021-11-21] MEDS: Sevelamer Carbonate 800 MG TAB PO SCH ×3 (10:14→17:44)
[2021-11-21] MEDS: Aspirin Chewable 81 MG TAB PO SCH (10:14)
[2021-11-21] MEDS: Carvedilol 6.25 MG TAB PO SCH ×2 (10:14→17:44)
[2021-11-21] MEDS: Cyanocobalamin (Vitamin B-12) 1,000 MCG TAB PO SCH (10:14)
[2021-11-21 11:34] LABS: Vancomycin, Random 19.9 ug/mL (See Comment)
[2021-11-21] MEDS: Calcitriol 0.25 MCG CAP PO SCH (22:23)
[2021-11-21] MEDS: pyridOXINE 50 MG (B6) TAB PO SCH (22:23)
[2021-11-21] MEDS: rOPINIRole HCl 1 MG TAB PO SCH (22:24)
[2021-11-21] MEDS: Oxybutynin 5 MG TAB PO SCH (22:24)
[2021-11-21] MEDS: Atorvastatin Calcium 20 MG TAB PO SCH (22:24)
[2021-11-22] MEDS: hydrALAZINE 20 MG/ML VIAL SLOW IVP PRN (04:57)
[2021-11-22 05:10] LABS: #Monocytes 1.1 10x3/uL (0.0-1.1); #Neutrophils 10.1 10x3/uL (1.5-8.4); %Basophils 0.1 % (0.0-2.0); %Lymphocytes 3.2 % (18.0-47.0); %Monocytes 9.3 % (0.0-10.0); %Neutrophils 86.3 % (40.0-75.0); Hemoglobin 11.7 g/dL (12.0-15.5); Mean Corpuscular HGB CONC 31.4 g/dL (32.0-36.0); Mean Corpuscular Hemoglobin 30.2 pg (27.0-33.0); Mean Corpuscular Volume 96.4 fl (81.6-98.3); Platelet Count 68 10x3/uL (150-450); RBC Distribution Width 15.9 % (11.5-14.5); Red Blood Cell (RBC) Count 3.87 10x6/uL (3.90-5.03); White Blood Cell (WBC) Count 11.7 10x3/uL (3.5-10.5)
[2021-11-22 05:13] LABS: Anion Gap 15 mmol/L (10-20); BUN (Urea Nitrogen) 83 mg/dL (9.8-20.1); Calc. Creatinine Clearance 41 mL/min (70-130); Calcium 8.4 mg/dL (7.8-10.44); Carbon Dioxide 26 mmol/L (23-31); Chloride 103 mmol/L (98-107); Estimated GFR 14; Glucose 121 mg/dL (80-115); Potassium 4.3 mmol/L (3.5-5.1); Sodium 140 mmol/L (136-145)
[2021-11-22] MEDS: Mometasone/Formoterol 200/5 60 PUFF INH SCH ×2 (08:20→18:49)
[2021-11-22] MEDS: Carvedilol 6.25 MG TAB PO SCH ×2 (08:31→18:07)
[2021-11-22] MEDS: Ascorbic Acid 500 mg Chewable Tablet PO SCH (08:31)
[2021-11-22] MEDS: Dexamethasone 20 MG/5 ML VIAL SLOW IVP SCH (08:31)
[2021-11-22] MEDS: Ferrous Sulfate 325 MG TAB PO SCH (08:31)
[2021-11-22] MEDS: hydrALAZINE 25 MG TAB PO SCH ×3 (08:31→21:14)
[2021-11-22] MEDS: Sevelamer Carbonate 800 MG TAB PO SCH ×3 (08:32→18:07)
[2021-11-22] MEDS: Cyanocobalamin (Vitamin B-12) 1,000 MCG TAB PO SCH (08:32)
[2021-11-22] MEDS: Sodium Chloride 0.9% 1,000 ML IV SCH ×2 (08:32→21:52)
[2021-11-22] MEDS: Folic Acid 1 MG TAB PO SCH (08:32)
[2021-11-22] MEDS: Aspirin Chewable 81 MG TAB PO SCH (08:32)
[2021-11-22] MEDS: Escitalopram Oxalate 10 mg Tablet PO SCH (08:32)
[2021-11-22] MEDS ORDERED: NIFEdipine XL 60 MG TAB PO SCH (09:00)
[2021-11-22] MEDS ORDERED: Vancomycin HCl 1 GM in Sodium Chloride 0.9% 250 ML 250 ML IVPB SCH (09:00)
[2021-11-22] MEDS: NIFEdipine XL 60 MG TAB PO SCH ×2 (10:03→12:02)
[2021-11-22] MEDS ORDERED: Ventolin HFA Inhaler 60 PUFF INHALER INH PRN (11:18)
[2021-11-22] MEDS: GUAIFENESIN SF SOLN 200 MG/10 ML UDCUP PO PRN (12:02)
[2021-11-22] MEDS: Acetaminophen 500 MG TAB PO PRN ×2 (12:27→23:53)
[2021-11-22 12:55] LABS: Creatinine, Urine 97.95 mg/dL (47-110)
[2021-11-22 13:35] VITALS: BMI 67.9
[2021-11-22] MEDS: Albumin 25% 25 GM/100 ML BOT IVPB SCH ×2 (15:25→21:14)
[2021-11-22] MEDS: rOPINIRole HCl 1 MG TAB PO SCH (21:14)
[2021-11-22] MEDS: guaiFENesin ER 600 MG TAB PO SCH (21:15)
[2021-11-22] MEDS: Oxybutynin 5 MG TAB PO SCH (21:15)
[2021-11-22] MEDS: Atorvastatin Calcium 20 MG TAB PO SCH (21:15)
[2021-11-22] MEDS: Calcitriol 0.25 MCG CAP PO SCH (21:16)
[2021-11-22] MEDS: pyridOXINE 50 MG (B6) TAB PO SCH (21:20)
[2021-11-22] MEDS: HumaLOG 300 UNITS/3 ML VIAL SC PRN (23:06)
[2021-11-22] MEDS: Cefepime 1 GM in Sodium Chloride 0.9% 100 ML IVPB SCH (23:15)
[2021-11-23 05:09] LABS: Anion Gap 17 mmol/L (10-20); BUN (Urea Nitrogen) 88 mg/dL (9.8-20.1); Calc. Creatinine Clearance 40 mL/min (70-130); Calcium 8.8 mg/dL (7.8-10.44); Carbon Dioxide 25 mmol/L (23-31); Chloride 102 mmol/L (98-107); Estimated GFR 14; Glucose 138 mg/dL (80-115); Potassium 4.6 mmol/L (3.5-5.1); Sodium 139 mmol/L (136-145)
[2021-11-23 05:42] LABS: Hemoglobin 11.3 g/dL (12.0-15.5); Mean Corpuscular HGB CONC 32.9 g/dL (32.0-36.0); Mean Platelet Volume 14.6 fl (7.4-10.4); Red Blood Cell (RBC) Count 3.65 10x6/uL (3.90-5.03); White Blood Cell (WBC) Count 14.5 10x3/uL (3.5-10.5)
[2021-11-23 05:43] LABS: MDiff Complete? YES; Platelet Count 71 10x3/uL (150-450)
[2021-11-23 06:14] LABS: Band 2 % (5-11); Lymphocytes 6 % (21-51); Monocytes 10 % (0-10); Neutrophil 82 % (42-75)
[2021-11-23 06:15] LABS: Platelet Morphology Comment Appears Decreased
[2021-11-23 06:16] LABS: RBC Morphology Normal
[2021-11-23 08:29] LABS: Vancomycin, Random 21.1 ug/mL (See Comment)
[2021-11-23] MEDS: Mometasone/Formoterol 200/5 60 PUFF INH SCH ×2 (09:10→18:56)
[2021-11-23] MEDS: Cyanocobalamin (Vitamin B-12) 1,000 MCG TAB PO SCH (09:16)
[2021-11-23] MEDS: Aspirin Chewable 81 MG TAB PO SCH (09:16)
[2021-11-23] MEDS: Carvedilol 6.25 MG TAB PO SCH ×2 (09:16→17:46)
[2021-11-23] MEDS: Ferrous Sulfate 325 MG TAB PO SCH (09:17)
[2021-11-23] MEDS: NIFEdipine XL 60 MG TAB PO SCH (09:17)
[2021-11-23] MEDS: Sevelamer Carbonate 800 MG TAB PO SCH ×3 (09:17→17:46)
[2021-11-23] MEDS: Ascorbic Acid 500 mg Chewable Tablet PO SCH (09:17)
[2021-11-23] MEDS: Folic Acid 1 MG TAB PO SCH (09:17)
[2021-11-23] MEDS: hydrALAZINE 25 MG TAB PO SCH ×3 (09:17→20:42)
[2021-11-23] MEDS: Escitalopram Oxalate 10 mg Tablet PO SCH (09:17)
[2021-11-23] MEDS: guaiFENesin ER 600 MG TAB PO SCH ×2 (09:17→20:42)
[2021-11-23] MEDS: Sodium Chloride 0.9% 1,000 ML IV SCH ×2 (09:18→22:08)
[2021-11-23] MEDS: Calcium Carbonate 500 MG ChewTAB PO PRN (11:40)
[2021-11-23] MEDS: Atorvastatin Calcium 20 MG TAB PO SCH (20:42)
[2021-11-23] MEDS: Calcitriol 0.25 MCG CAP PO SCH (20:42)
[2021-11-23] MEDS: Oxybutynin 5 MG TAB PO SCH (20:43)
[2021-11-23] MEDS: pyridOXINE 50 MG (B6) TAB PO SCH (20:43)
[2021-11-23] MEDS: rOPINIRole HCl 1 MG TAB PO SCH (20:44)
[2021-11-23] MEDS: Cefepime 1 GM in Sodium Chloride 0.9% 100 ML IVPB SCH (23:23)
[2021-11-24 04:59] LABS: #Eosinphils 0.1 10x3/uL (0.0-0.5); #Monocytes 1.3 10x3/uL (0.0-1.1); %Basophils 0.2 % (0.0-2.0); %Eosinophils 0.7 % (0.0-6.0); %Lymphocytes 5.1 % (18.0-47.0); %Neutrophils 83.1 % (40.0-75.0); Hemoglobin 11.3 g/dL (12.0-15.5); Mean Corpuscular Hemoglobin 30.8 pg (27.0-33.0); Mean Corpuscular Volume 93.2 fl (81.6-98.3); Mean Platelet Volume 14.3 fl (7.4-10.4); Platelet Count 74 10x3/uL (150-450); RBC Distribution Width 15.9 % (11.5-14.5); Red Blood Cell (RBC) Count 3.67 10x6/uL (3.90-5.03); White Blood Cell (WBC) Count 14.4 10x3/uL (3.5-10.5)
[2021-11-24 05:11] LABS: Anion Gap 16 mmol/L (10-20); BUN (Urea Nitrogen) 90 mg/dL (9.8-20.1); Calc. Creatinine Clearance 43 mL/min (70-130); Calcium 8.9 mg/dL (7.8-10.44); Carbon Dioxide 26 mmol/L (23-31); Chloride 103 mmol/L (98-107); Estimated GFR 15; Glucose 98 mg/dL (80-115); Potassium 4.5 mmol/L (3.5-5.1); Sodium 140 mmol/L (136-145)
[2021-11-24] MEDS: Mometasone/Formoterol 200/5 60 PUFF INH SCH ×2 (08:23→19:40)
[2021-11-24 08:43] LABS: Vancomycin, Random 17.5 ug/mL (See Comment)
[2021-11-24] MEDS: Sevelamer Carbonate 800 MG TAB PO SCH (08:45)
[2021-11-24] MEDS: Carvedilol 6.25 MG TAB PO SCH ×2 (08:45→17:22)
[2021-11-24] MEDS ORDERED: Vancomycin HCl 750 MG in Sodium Chloride 0.9% 250 ML 250 ML IVPB SCH (09:00)
[2021-11-24] MEDS: guaiFENesin ER 600 MG TAB PO SCH ×2 (09:19→21:31)
[2021-11-24] MEDS: hydrALAZINE 25 MG TAB PO SCH ×3 (09:19→21:31)
[2021-11-24] MEDS: Ascorbic Acid 500 mg Chewable Tablet PO SCH (09:20)
[2021-11-24] MEDS: Escitalopram Oxalate 10 mg Tablet PO SCH (09:20)
[2021-11-24] MEDS: Folic Acid 1 MG TAB PO SCH (09:20)
[2021-11-24] MEDS: Cyanocobalamin (Vitamin B-12) 1,000 MCG TAB PO SCH (09:20)
[2021-11-24] MEDS: Ferrous Sulfate 325 MG TAB PO SCH (09:21)
[2021-11-24] MEDS: NIFEdipine XL 60 MG TAB PO SCH (09:21)
[2021-11-24] MEDS: Aspirin Chewable 81 MG TAB PO SCH (09:22)
[2021-11-24 10:44] LABS: Urine Total Volume 1500 mL (250-2400)
[2021-11-24 11:20] LABS: Protein - 24 Hr 7305 mg/24 hr (Less than 300); Protein, Urine 487 mg/dL (1-14)
[2021-11-24 11:35] LABS: 24 Hr Creatinine 805.95 mg/24 hr (710-1650); Creatinine, Urine 53.73 mg/dL (47-110)
[2021-11-24] MEDS: Ipratropium/Albuterol Sulfate 4 GM AER IH SCH ×3 (11:44→19:40)
[2021-11-24] MEDS ORDERED: Bumetanide 1 MG/4 ML VIAL IVP SCH (15:00)
[2021-11-24] MEDS: rOPINIRole HCl 1 MG TAB PO SCH (21:30)
[2021-11-24] MEDS: Calcitriol 0.25 MCG CAP PO SCH (21:30)
[2021-11-24] MEDS: Oxybutynin 5 MG TAB PO SCH (21:31)
[2021-11-24] MEDS: Atorvastatin Calcium 20 MG TAB PO SCH (21:31)
[2021-11-24] MEDS: pyridOXINE 50 MG (B6) TAB PO SCH (21:38)
[2021-11-25 05:00] LABS: #Eosinphils 0.2 10x3/uL (0.0-0.5); #Monocytes 1.2 10x3/uL (0.0-1.1); #Neutrophils 8.9 10x3/uL (1.5-8.4); %Basophils 0.4 % (0.0-2.0); %Monocytes 10.8 % (0.0-10.0); %Neutrophils 78.1 % (40.0-75.0); Hemoglobin 12.9 g/dL (12.0-15.5); Mean Corpuscular HGB CONC 32.6 g/dL (32.0-36.0); Mean Corpuscular Hemoglobin 30.2 pg (27.0-33.0); Mean Corpuscular Volume 92.7 fl (81.6-98.3); Platelet Count 83 10x3/uL (150-450); RBC Distribution Width 16.3 % (11.5-14.5); Red Blood Cell (RBC) Count 4.27 10x6/uL (3.90-5.03); White Blood Cell (WBC) Count 11.4 10x3/uL (3.5-10.5)
[2021-11-25 05:03] LABS: Anion Gap 14 mmol/L (10-20); BUN (Urea Nitrogen) 90 mg/dL (9.8-20.1); Calc. Creatinine Clearance 46 mL/min (70-130); Calcium 9.3 mg/dL (7.8-10.44); Carbon Dioxide 24 mmol/L (23-31); Chloride 106 mmol/L (98-107); Estimated GFR 16; Glucose 92 mg/dL (80-115); Potassium 4.3 mmol/L (3.5-5.1); Sodium 140 mmol/L (136-145)
[2021-11-25] MEDS: Mometasone/Formoterol 200/5 60 PUFF INH SCH ×2 (07:10→19:43)
[2021-11-25] MEDS: NIFEdipine XL 60 MG TAB PO SCH (08:19)
[2021-11-25] MEDS: guaiFENesin ER 600 MG TAB PO SCH ×2 (08:20→21:39)
[2021-11-25] MEDS: hydrALAZINE 25 MG TAB PO SCH ×3 (08:20→21:39)
[2021-11-25] MEDS: Escitalopram Oxalate 10 mg Tablet PO SCH (08:20)
[2021-11-25] MEDS: Cyanocobalamin (Vitamin B-12) 1,000 MCG TAB PO SCH (08:20)
[2021-11-25] MEDS: Sevelamer Carbonate 800 MG TAB PO SCH ×5 (08:20→17:11)
[2021-11-25] MEDS: Aspirin Chewable 81 MG TAB PO SCH (08:21)
[2021-11-25] MEDS: Ferrous Sulfate 325 MG TAB PO SCH (08:21)
[2021-11-25] MEDS: Ascorbic Acid 500 mg Chewable Tablet PO SCH (08:21)
[2021-11-25] MEDS: Carvedilol 6.25 MG TAB PO SCH ×2 (08:21→17:11)
[2021-11-25] MEDS: Folic Acid 1 MG TAB PO SCH (08:21)
[2021-11-25] MEDS ORDERED: Bumetanide 1 MG/4 ML VIAL IVP SCH (10:00)
[2021-11-25] MEDS: methylPREDNISolone Sod Succ 40 MG VIAL IVP SCH ×2 (10:10→17:11)
[2021-11-25] MEDS: Ipratropium/Albuterol Sulfate 4 GM AER IH SCH (12:13)
[2021-11-25] MEDS: Benzonatate 100 MG CAP PO PRN (12:32)
[2021-11-25] MEDS: Atorvastatin Calcium 20 MG TAB PO SCH (21:39)
[2021-11-25] MEDS: Calcitriol 0.25 MCG CAP PO SCH (21:39)
[2021-11-25] MEDS: Oxybutynin 5 MG TAB PO SCH (21:39)
[2021-11-25] MEDS: pyridOXINE 50 MG (B6) TAB PO SCH (21:39)
[2021-11-25] MEDS: rOPINIRole HCl 1 MG TAB PO SCH (21:40)
[2021-11-26] MEDS: methylPREDNISolone Sod Succ 40 MG VIAL IVP SCH ×4 (02:00→22:01)
[2021-11-26] MEDS: HumaLOG 300 UNITS/3 ML VIAL SC PRN ×4 (06:29→22:29)
[2021-11-26 06:49] LABS: Anion Gap 16 mmol/L (10-20); BUN (Urea Nitrogen) 88 mg/dL (9.8-20.1); Calc. Creatinine Clearance 49 mL/min (70-130); Calcium 9.5 mg/dL (7.8-10.44); Carbon Dioxide 23 mmol/L (23-31); Chloride 108 mmol/L (98-107); Estimated GFR 17; Glucose 165 mg/dL (80-115); Potassium 5.1 mmol/L (3.5-5.1); Sodium 142 mmol/L (136-145)
[2021-11-26] MEDS: Mometasone/Formoterol 200/5 60 PUFF INH SCH ×2 (07:10→20:10)
[2021-11-26] MEDS ORDERED: Fioricet 325/50/40 mg Tablet PO PRN (09:51)
[2021-11-26] MEDS ORDERED: Fioricet 325/50/40 mg Tablet PO SCH (10:00)
[2021-11-26] MEDS ORDERED: Bumetanide 1 MG/4 ML VIAL IVP SCH (10:00)
[2021-11-26] MEDS ORDERED: Carvedilol 6.25 MG TAB PO SCH (10:00)
[2021-11-26] MEDS: NIFEdipine XL 60 MG TAB PO SCH (10:46)
[2021-11-26] MEDS: Sevelamer Carbonate 800 MG TAB PO SCH ×3 (10:46→16:21)
[2021-11-26] MEDS: Ascorbic Acid 500 mg Chewable Tablet PO SCH (10:47)
[2021-11-26] MEDS: Aspirin Chewable 81 MG TAB PO SCH (10:47)
[2021-11-26] MEDS: Ferrous Sulfate 325 MG TAB PO SCH (10:47)
[2021-11-26] MEDS: Folic Acid 1 MG TAB PO SCH (10:48)
[2021-11-26] MEDS: Cyanocobalamin (Vitamin B-12) 1,000 MCG TAB PO SCH (10:48)
[2021-11-26] MEDS: Escitalopram Oxalate 10 mg Tablet PO SCH (10:48)
[2021-11-26] MEDS: guaiFENesin ER 600 MG TAB PO SCH ×2 (10:49→22:01)
[2021-11-26] MEDS: hydrALAZINE 25 MG TAB PO SCH ×3 (10:52→22:00)
[2021-11-26] MEDS: Carvedilol 6.25 MG TAB PO SCH (10:52)
[2021-11-26] MEDS: Carvedilol 12.5 MG TAB PO SCH (16:21)
[2021-11-26] MEDS: Calcitriol 0.25 MCG CAP PO SCH (22:01)
[2021-11-26] MEDS: pyridOXINE 50 MG (B6) TAB PO SCH (22:01)
[2021-11-26] MEDS: Oxybutynin 5 MG TAB PO SCH (22:01)
[2021-11-26] MEDS: rOPINIRole HCl 1 MG TAB PO SCH (22:02)
[2021-11-26] MEDS: Atorvastatin Calcium 20 MG TAB PO SCH (22:03)
[2021-11-27 04:45] LABS: Anion Gap 15 mmol/L (10-20); BUN (Urea Nitrogen) 91 mg/dL (9.8-20.1); Calc. Creatinine Clearance 52 mL/min (70-130); Calcium 9.6 mg/dL (7.8-10.44); Carbon Dioxide 24 mmol/L (23-31); Chloride 110 mmol/L (98-107); Estimated GFR 19; Glucose 159 mg/dL (80-115); Potassium 4.8 mmol/L (3.5-5.1); Sodium 144 mmol/L (136-145)
[2021-11-27] MEDS: Mometasone/Formoterol 200/5 60 PUFF INH SCH ×2 (06:52→19:10)
[2021-11-27] MEDS: guaiFENesin ER 600 MG TAB PO SCH ×2 (10:08→21:35)
[2021-11-27] MEDS: Cyanocobalamin (Vitamin B-12) 1,000 MCG TAB PO SCH (10:08)
[2021-11-27] MEDS: hydrALAZINE 25 MG TAB PO SCH ×3 (10:09→21:33)
[2021-11-27] MEDS: Ascorbic Acid 500 mg Chewable Tablet PO SCH (10:09)
[2021-11-27] MEDS: Escitalopram Oxalate 10 mg Tablet PO SCH (10:10)
[2021-11-27] MEDS: Furosemide 40 MG TAB PO SCH (10:10)
[2021-11-27] MEDS: Ferrous Sulfate 325 MG TAB PO SCH (10:10)
[2021-11-27] MEDS: NIFEdipine XL 60 MG TAB PO SCH (10:10)
[2021-11-27] MEDS: Carvedilol 12.5 MG TAB PO SCH ×2 (10:12→17:50)
[2021-11-27] MEDS: Folic Acid 1 MG TAB PO SCH (10:12)
[2021-11-27] MEDS: Sevelamer Carbonate 800 MG TAB PO SCH ×3 (10:12→17:50)
[2021-11-27] MEDS: Aspirin Chewable 81 MG TAB PO SCH (10:12)
[2021-11-27] MEDS: methylPREDNISolone Sod Succ 40 MG VIAL IVP SCH (10:36)
[2021-11-27] MEDS: Gabapentin 300 MG CAP PO SCH ×2 (15:20→21:32)
[2021-11-27] MEDS: Calcium Carbonate 500 MG ChewTAB PO PRN (17:49)
[2021-11-27] MEDS: Calcitriol 0.25 MCG CAP PO SCH (21:35)
[2021-11-27] MEDS: Atorvastatin Calcium 20 MG TAB PO SCH (21:35)
[2021-11-27] MEDS: pyridOXINE 50 MG (B6) TAB PO SCH (21:42)
[2021-11-27] MEDS: Oxybutynin 5 MG TAB PO SCH (21:43)
[2021-11-27] MEDS: rOPINIRole HCl 1 MG TAB PO SCH (21:43)
[2021-11-28 04:33] LABS: #Monocytes 0.9 10x3/uL (0.0-1.1); #Neutrophils 7.6 10x3/uL (1.5-8.4); %Basophils 0.1 % (0.0-2.0); %Eosinophils 0.4 % (0.0-6.0); %Lymphocytes 10.7 % (18.0-47.0); %Monocytes 8.8 % (0.0-10.0); %Neutrophils 78.7 % (40.0-75.0); Hemoglobin 11.5 g/dL (12.0-15.5); Mean Corpuscular HGB CONC 32.2 g/dL (32.0-36.0); Mean Corpuscular Hemoglobin 30.8 pg (27.0-33.0); Mean Corpuscular Volume 95.7 fl (81.6-98.3); Mean Platelet Volume 12.9 fl (7.4-10.4); Platelet Count 106 10x3/uL (150-450); RBC Distribution Width 16.6 % (11.5-14.5); Red Blood Cell (RBC) Count 3.73 10x6/uL (3.90-5.03); White Blood Cell (WBC) Count 9.7 10x3/uL (3.5-10.5)
[2021-11-28 04:36] LABS: Anion Gap 12 mmol/L (10-20); BUN (Urea Nitrogen) 93 mg/dL (9.8-20.1); Calc. Creatinine Clearance 51 mL/min (70-130); Carbon Dioxide 26 mmol/L (23-31); Chloride 112 mmol/L (98-107); Estimated GFR 19; Glucose 93 mg/dL (80-115); Potassium 4.4 mmol/L (3.5-5.1); Sodium 146 mmol/L (136-145)
[2021-11-28] MEDS: Mometasone/Formoterol 200/5 60 PUFF INH SCH ×2 (06:52→20:25)
[2021-11-28] MEDS ORDERED: Loratadine 10 MG TAB PO SCH (10:45)
[2021-11-28] MEDS: Carvedilol 12.5 MG TAB PO SCH ×2 (11:00→16:30)
[2021-11-28] MEDS: hydrALAZINE 25 MG TAB PO SCH ×3 (12:47→20:39)
[2021-11-28] MEDS: NIFEdipine XL 60 MG TAB PO SCH (12:47)
[2021-11-28] MEDS: Folic Acid 1 MG TAB PO SCH (12:49)
[2021-11-28] MEDS: Ferrous Sulfate 325 MG TAB PO SCH (12:49)
[2021-11-28] MEDS: Escitalopram Oxalate 10 mg Tablet PO SCH (12:49)
[2021-11-28] MEDS: predniSONE 20 MG TAB PO SCH (12:50)
[2021-11-28] MEDS: Cyanocobalamin (Vitamin B-12) 1,000 MCG TAB PO SCH (12:50)
[2021-11-28] MEDS: Gabapentin 300 MG CAP PO SCH ×3 (12:50→20:32)
[2021-11-28] MEDS: Sevelamer Carbonate 800 MG TAB PO SCH ×2 (12:50→16:30)
[2021-11-28] MEDS: Aspirin Chewable 81 MG TAB PO SCH (12:50)
[2021-11-28] MEDS: guaiFENesin ER 600 MG TAB PO SCH ×2 (12:50→20:33)
[2021-11-28] MEDS: Ascorbic Acid 500 mg Chewable Tablet PO SCH (12:50)
[2021-11-28] MEDS: Furosemide 40 MG TAB PO SCH (12:51)
[2021-11-28] MEDS: Calcium Carbonate 500 MG ChewTAB PO PRN (16:31)
[2021-11-28] MEDS: rOPINIRole HCl 1 MG TAB PO SCH (20:33)
[2021-11-28] MEDS: Calcitriol 0.25 MCG CAP PO SCH (20:33)
[2021-11-28] MEDS: Atorvastatin Calcium 20 MG TAB PO SCH (20:33)
[2021-11-28] MEDS: Apixaban 2.5 MG TAB PO SCH (20:33)
[2021-11-28] MEDS: pyridOXINE 50 MG (B6) TAB PO SCH (20:39)
[2021-11-28] MEDS: Oxybutynin 5 MG TAB PO SCH (20:40)
[2021-11-28] MEDS ORDERED: Zolpidem Tartrate 5 MG TAB PO PRN (22:42)
[2021-11-29 04:38] VITALS: TEMP 97.1
[2021-11-29 04:53] LABS: Anion Gap 11 mmol/L (10-20); BUN (Urea Nitrogen) 92 mg/dL (9.8-20.1); Calc. Creatinine Clearance 53 mL/min (70-130); Calcium 9.5 mg/dL (7.8-10.44); Carbon Dioxide 27 mmol/L (23-31); Chloride 110 mmol/L (98-107); Estimated GFR 20; Glucose 136 mg/dL (80-115); Sodium 143 mmol/L (136-145)
[2021-11-29] MEDS: Mometasone/Formoterol 200/5 60 PUFF INH SCH (06:45)
[2021-11-29 07:07] VITALS: BP 119/77
[2021-11-29] MEDS: Fluticasone Propionate Nasal Spray 16 gm Bottle NASAL SCH ×2 (08:03→08:15)
[2021-11-29] MEDS: Ascorbic Acid 500 mg Chewable Tablet PO SCH (08:13)
[2021-11-29] MEDS: Escitalopram Oxalate 10 mg Tablet PO SCH (08:13)
[2021-11-29] MEDS: Furosemide 40 MG TAB PO SCH (08:13)
[2021-11-29] MEDS: Folic Acid 1 MG TAB PO SCH (08:13)
[2021-11-29] MEDS: Aspirin Chewable 81 MG TAB PO SCH (08:13)
[2021-11-29] MEDS: Carvedilol 12.5 MG TAB PO SCH (08:14)
[2021-11-29] MEDS: Cyanocobalamin (Vitamin B-12) 1,000 MCG TAB PO SCH (08:14)
[2021-11-29] MEDS: Gabapentin 300 MG CAP PO SCH (08:14)
[2021-11-29] MEDS: NIFEdipine XL 60 MG TAB PO SCH (08:14)
[2021-11-29] MEDS: Sevelamer Carbonate 800 MG TAB PO SCH (08:14)
[2021-11-29] MEDS: predniSONE 20 MG TAB PO SCH (08:14)
[2021-11-29] MEDS: Apixaban 2.5 MG TAB PO SCH (08:14)
[2021-11-29] MEDS: hydrALAZINE 25 MG TAB PO SCH (08:14)
[2021-11-29] MEDS: Ferrous Sulfate 325 MG TAB PO SCH (08:14)
[2021-11-29] MEDS ORDERED: Loratadine 10 MG TAB PO SCH (09:00)
[2021-11-29] MEDS: guaiFENesin ER 600 MG TAB PO SCH (09:08)
[2021-11-29] MEDS: GUAIFENESIN SF SOLN 200 MG/10 ML UDCUP PO PRN (09:49)
== END 2021-11-29 11:27 | disposition swing bed (61) | DRG 177 ==
LOC: CSHTELE 00:57 → CSHICU 11-13 08:42 → CSHTELE 11-16 15:54
PROVIDERS: ADMIT Student in an Organized Health Care Education/Training Program; ATTEND Internal Medicine
PROC: 8E0ZXY6 Isolation (ICD-10-PCS; principal; 2021-11-12)
PROC: 5A09557 Assistance with Respiratory Ventilation, Greater than 96 Consecutive Hours, Continuous Positive Airway Pressure (ICD-10-PCS; 2021-11-13)
DX: U07.1 COVID-19 (principal); J96.01 Acute respiratory failure with hypoxia; N39.0 Urinary tract infection, site not specified; T83.511A Infection and inflammatory reaction due to indwelling urethral catheter, initial encounter; J12.82 Pneumonia due to coronavirus disease 2019; I50.43 Acute on chronic combined systolic (congestive) and diastolic (congestive) heart failure; J96.02 Acute respiratory failure with hypercapnia; J45.901 Unspecified asthma with (acute) exacerbation; N18.4 Chronic kidney disease, stage 4 (severe); N17.9 Acute kidney failure, unspecified; E87.1 Hypo-osmolality and hyponatremia; I13.0 Hypertensive heart and chronic kidney disease with heart failure and stage 1 through stage 4 chronic kidney disease, or unspecified chronic kidney disease; E66.2 Morbid (severe) obesity with alveolar hypoventilation; Z68.44 Body mass index [BMI] 60.0-69.9, adult; I48.91 Unspecified atrial fibrillation; E87.5 Hyperkalemia; Y84.6 Urinary catheterization as the cause of abnormal reaction of the patient, or of later complication, without mention of misadventure at the time of the procedure; E88.09 Other disorders of plasma-protein metabolism, not elsewhere classified; I89.0 Lymphedema, not elsewhere classified; D69.6 Thrombocytopenia, unspecified; E83.39 Other disorders of phosphorus metabolism; E11.22 Type 2 diabetes mellitus with diabetic chronic kidney disease; I16.0 Hypertensive urgency; B96.20 Unspecified Escherichia coli [E. coli] as the cause of diseases classified elsewhere; D75.89 Other specified diseases of blood and blood-forming organs; B96.1 Klebsiella pneumoniae [K. pneumoniae] as the cause of diseases classified elsewhere; Z91.041 Radiographic dye allergy status; Z88.8 Allergy status to other drugs, medicaments and biological substances; Z79.899 Other long term (current) drug therapy; Z79.51 Long term (current) use of inhaled steroids; Z90.710 Acquired absence of both cervix and uterus; Z90.722 Acquired absence of ovaries, bilateral; Z90.49 Acquired absence of other specified parts of digestive tract; Z91.14 Patient's other noncompliance with medication regimen; Z85.41 Personal history of malignant neoplasm of cervix uteri; Z98.84 Bariatric surgery status; Z28.310 Unvaccinated for COVID-19; Z79.82 Long term (current) use of aspirin
CPT/HCPCS: 36415; 36416; 36600; 71045; 76770; 80048; 80202; 81001; 82040; 82553; 82570; 82805; 83735; 83880; 84100; 84145; 84155; 84156; 84165; 84166; 84300; 84443; 84484; 84540; 85025; 86140; 86334; 87077; 87086; 87186; 93005; 93010; 93306; 94660; 94760; 94799; J0360; J0610; J0692; J1100; J1450; J1650; J1815; J1940; J2270; J2405; J2920; J3370; J3475; J3490; J3535; J7050; J7512; J7620; P9047

== ENCOUNTER 2022-01-07 19:00 | Emergency (ER) | payer OTHER ==
[2022-01-07 19:47] LABS: #Basophils 0.1 10x3/uL (0.0-0.2); #Eosinphils 0.4 10x3/uL (0.0-0.5); #Monocytes 1.1 10x3/uL (0.0-1.1); #Neutrophils 8.1 10x3/uL (1.5-8.4); %Lymphocytes 16.9 % (18.0-47.0); %Monocytes 9.1 % (0.0-10.0); %Neutrophils 65.3 % (40.0-75.0); Hemoglobin 8.6 g/dL (12.0-15.5); Mean Corpuscular HGB CONC 31.4 g/dL (32.0-36.0); Mean Corpuscular Hemoglobin 29.9 pg (27.0-33.0); Mean Corpuscular Volume 95.1 fl (81.6-98.3); Mean Platelet Volume 10.7 fl (7.4-10.4); Platelet Count 247 10x3/uL (150-450); RBC Distribution Width 18.6 % (11.5-14.5); Red Blood Cell (RBC) Count 2.88 10x6/uL (3.90-5.03); White Blood Cell (WBC) Count 12.5 10x3/uL (3.5-10.5)
[2022-01-07 19:53] LABS: ALT (SGPT) 19 U/L (8-55); AST (SGOT) 14 U/L (5-34); Albumin 2.3 g/dL (3.4-4.8); Alkaline Phosphatase 176 U/L (40-110); Anion Gap 13 mmol/L (10-20); BUN (Urea Nitrogen) 22 mg/dL (9.8-20.1); Bilirubin, Total 0.3 mg/dL (0.2-1.2); Calc. Creatinine Clearance 0 mL/min (70-130); Calcium 8.7 mg/dL (7.8-10.44); Carbon Dioxide 22 mmol/L (23-31); Chloride 107 mmol/L (98-107); Estimated GFR 27; Globulin 3.1 g/dL (2.4-3.5); Glucose 85 mg/dL (80-115); Potassium 4.6 mmol/L (3.5-5.1); Protein, Total 5.4 g/dL (5.8-8.1); Sodium 137 mmol/L (136-145)
[2022-01-07 20:15] LABS: CKMB 0.6 ng/mL (0-6.6)
== END 2022-01-07 21:50 | disposition home or self-care (01) ==
LOC: CSHERS 19:00
DX: N64.4 Mastodynia (principal); I12.9 Hypertensive chronic kidney disease with stage 1 through stage 4 chronic kidney disease, or unspecified chronic kidney disease; N18.9 Chronic kidney disease, unspecified; D63.1 Anemia in chronic kidney disease; D64.9 Anemia, unspecified; R79.89 Other specified abnormal findings of blood chemistry; E11.22 Type 2 diabetes mellitus with diabetic chronic kidney disease
CPT/HCPCS: 71045; 80053; 82553; 84484; 85025; 93005

== ENCOUNTER 2022-01-19 11:47 | Emergency (ER) | payer OTHER ==
[2022-01-19 12:58] LABS: #Basophils 0.1 10x3/uL (0.0-0.2); #Eosinphils 0.8 10x3/uL (0.0-0.5); #Neutrophils 7.2 10x3/uL (1.5-8.4); %Basophils 0.4 % (0.0-2.0); %Eosinophils 7.3 % (0.0-6.0); %Lymphocytes 17.5 % (18.0-47.0); %Monocytes 9.3 % (0.0-10.0); %Neutrophils 63.6 % (40.0-75.0); Hemoglobin 6.8 g/dL (12.0-15.5); Mean Corpuscular HGB CONC 30.9 g/dL (32.0-36.0); Mean Corpuscular Hemoglobin 30.2 pg (27.0-33.0); Mean Corpuscular Volume 97.8 fl (81.6-98.3); Mean Platelet Volume 10.6 fl (7.4-10.4); Platelet Count 208 10x3/uL (150-450); RBC Distribution Width 20.2 % (11.5-14.5); Red Blood Cell (RBC) Count 2.25 10x6/uL (3.90-5.03); White Blood Cell (WBC) Count 11.2 10x3/uL (3.5-10.5)
== END 2022-01-19 17:00 | disposition home or self-care (01) ==
LOC: CSHERS 11:47
DX: I13.2 Hypertensive heart and chronic kidney disease with heart failure and with stage 5 chronic kidney disease, or end stage renal disease (principal); E11.22 Type 2 diabetes mellitus with diabetic chronic kidney disease; N18.6 End stage renal disease; I50.9 Heart failure, unspecified; D63.1 Anemia in chronic kidney disease
CPT/HCPCS: 36430; 85025; 86850; 86900; 86901; 86920; 86922; 99284; P9016; 36415

== ENCOUNTER 2022-04-05 12:46 | Inpatient (IN) | payer OTHER ==
[2022-04-05 13:27] LABS: #Basophils 0.1 10x3/uL (0.0-0.2); #Eosinphils 0.5 10x3/uL (0.0-0.5); #Monocytes 0.7 10x3/uL (0.0-1.1); #Neutrophils 3.7 10x3/uL (1.5-8.4); %Basophils 0.8 % (0.0-2.0); %Eosinophils 7.9 % (0.0-6.0); %Lymphocytes 22.5 % (18.0-47.0); %Monocytes 10.6 % (0.0-10.0); %Neutrophils 57.3 % (40.0-75.0); Hemoglobin 10.3 g/dL (12.0-15.5); Mean Corpuscular HGB CONC 31.8 g/dL (32.0-36.0); Mean Corpuscular Hemoglobin 33.2 pg (27.0-33.0); Mean Corpuscular Volume 104.5 fl (81.6-98.3); Mean Platelet Volume 10.5 fl (7.4-10.4); Platelet Count 184 10x3/uL (150-450); RBC Distribution Width 17.2 % (11.5-14.5); White Blood Cell (WBC) Count 6.4 10x3/uL (3.5-10.5)
[2022-04-05 13:41] LABS: ALT (SGPT) 7 U/L (8-55); AST (SGOT) 17 U/L (5-34); Albumin 2.8 g/dL (3.4-4.8); Alkaline Phosphatase 109 U/L (40-110); Anion Gap 15 mmol/L (10-20); BUN (Urea Nitrogen) 25 mg/dL (9.8-20.1); Bilirubin, Total 0.4 mg/dL (0.2-1.2); Calc. Creatinine Clearance 0 mL/min (70-130); Calcium 9.9 mg/dL (7.8-10.44); Carbon Dioxide 29 mmol/L (23-31); Chloride 102 mmol/L (98-107); Estimated GFR 19; Globulin 3.4 g/dL (2.4-3.5); Glucose 93 mg/dL (80-115); Lipase 6 U/L (8-78); Magnesium 2.1 mg/dL (1.6-2.6); Potassium 3.9 mmol/L (3.5-5.1); Protein, Total 6.2 g/dL (5.8-8.1); Sodium 142 mmol/L (136-145)
[2022-04-05 13:52] LABS: Bilirubin Neg (Negative); Blood, Urine Negative (Negative); Clarity Clear (Clear); Glucose, Urine (Dipstick) Normal (Negative); Ketone, Urine Negative (Negative); Leukocyte Negative (Negative); Nitrite Negative (Negative); Protein, Urine (Dipstick) 100 mg/dl (Neg-Trace); Urobilinogen Normal mg/dL (Less than 2)
[2022-04-05 13:52] LABS: SARS-CoV-2 NAA Rapid Test Not Detected (NotDetected)
[2022-04-05 14:01] LABS: CKMB 0.7 ng/mL (0-6.6)
[2022-04-05 14:06] LABS: Bacteria/HPF None Seen HPF (None Seen); RBC/HPF 0-3 HPF (0-3); Squamous Epithelial 0-3 HPF (0-3); WBC/HPF 0-3 HPF (0-3)
[2022-04-05 14:51] LABS: Anion Gap 14 mmol/L (10-20); BUN (Urea Nitrogen) 25 mg/dL (9.8-20.1); Calc. Creatinine Clearance 0 mL/min (70-130); Calcium 9.7 mg/dL (7.8-10.44); Carbon Dioxide 30 mmol/L (23-31); Chloride 103 mmol/L (98-107); Estimated GFR 19; Glucose 88 mg/dL (80-115); Potassium 3.9 mmol/L (3.5-5.1); Sodium 143 mmol/L (136-145)
[2022-04-05 16:35] LABS: Troponin I 0.042 ng/mL (< 0.028)
[2022-04-05] MEDS ORDERED: HYDROcodone/Acetaminophen 5/325 mg Tablet PO PRN (17:01)
[2022-04-05 19:48] LABS: Troponin I 0.046 ng/mL (< 0.028)
[2022-04-05] MEDS: Atorvastatin Calcium 20 MG TAB PO SCH (22:06)
[2022-04-05] MEDS: Metoprolol Tartrate 50 MG TAB PO SCH (22:07)
[2022-04-05 23:03] LABS: Troponin I 0.042 ng/mL (< 0.028)
[2022-04-05] MEDS ORDERED: Gabapentin 100 MG CAP PO SCH (23:15)
[2022-04-05] MEDS: rOPINIRole HCl 1 MG TAB PO SCH (23:18)
[2022-04-06 05:02] LABS: #Basophils 0.1 10x3/uL (0.0-0.2); #Eosinphils 0.6 10x3/uL (0.0-0.5); #Monocytes 0.8 10x3/uL (0.0-1.1); #Neutrophils 3.5 10x3/uL (1.5-8.4); %Basophils 0.9 % (0.0-2.0); %Eosinophils 9.2 % (0.0-6.0); %Lymphocytes 23.8 % (18.0-47.0); %Neutrophils 53.5 % (40.0-75.0); Hemoglobin 9.1 g/dL (12.0-15.5); Mean Corpuscular HGB CONC 30.4 g/dL (32.0-36.0); Mean Corpuscular Hemoglobin 32.5 pg (27.0-33.0); Mean Corpuscular Volume 106.8 fl (81.6-98.3); Mean Platelet Volume 10.8 fl (7.4-10.4); Platelet Count 172 10x3/uL (150-450); RBC Distribution Width 17.1 % (11.5-14.5); White Blood Cell (WBC) Count 6.6 10x3/uL (3.5-10.5)
[2022-04-06 05:19] LABS: Anion Gap 11 mmol/L (10-20); BUN (Urea Nitrogen) 25 mg/dL (9.8-20.1); Calc. Creatinine Clearance 51 mL/min (70-130); Calcium 9.6 mg/dL (7.8-10.44); Carbon Dioxide 31 mmol/L (23-31); Chloride 105 mmol/L (98-107); Estimated GFR 20; Glucose 85 mg/dL (80-115); Sodium 143 mmol/L (136-145)
[2022-04-06 06:08] LABS: Basophilic Stippling SLIGHT = 1-2 cells (100X) (None Seen); Macrocytosis SLIGHT = 6-15 cells (100X) (0-5/hpf)
[2022-04-06 06:09] LABS: Platelet Morphology Comment Appears Adequate
[2022-04-06] MEDS ORDERED: Gabapentin 100 MG CAP PO SCH (09:00)
[2022-04-06] MEDS ORDERED: Sodium Chloride 0.9% 500 ML IV SCH (09:45)
[2022-04-06] MEDS: Alogliptin 6.25 MG TAB PO SCH (10:25)
[2022-04-06] MEDS: Enoxaparin Sodium 30 MG/0.3 ML SYRINGE SC SCH (10:25)
[2022-04-06] MEDS: Gabapentin 100 MG CAP PO SCH ×2 (10:26→20:44)
[2022-04-06] MEDS: rOPINIRole HCl 1 MG TAB PO SCH ×3 (10:27→20:46)
[2022-04-06] MEDS: Metoprolol Tartrate 50 MG TAB PO SCH (10:27)
[2022-04-06] MEDS: Sodium Chloride 0.9% 1,000 ML IV SCH (10:28)
[2022-04-06] MEDS: Sertraline 25 MG TAB PO SCH (10:28)
[2022-04-06] MEDS: Midodrine HCl 5 MG TAB PO PRN (15:34)
[2022-04-06] MEDS: Pramipexole Di-HCl 0.25 MG TAB PO SCH ×2 (15:49→20:45)
[2022-04-06] MEDS: Albumin 25% 25 GM/100 ML BOT IVPB SCH (17:50)
[2022-04-06] MEDS: Atorvastatin Calcium 20 MG TAB PO SCH (20:45)
[2022-04-06] MEDS ORDERED: rOPINIRole HCl 1 MG TAB PO SCH (21:00)
[2022-04-07] MEDS: Metoprolol Tartrate 50 MG TAB PO SCH (00:18)
[2022-04-07] MEDS: Albumin 25% 25 GM/100 ML BOT IVPB SCH ×5 (00:37→23:28)
[2022-04-07 05:39] LABS: #Eosinphils 0.5 10x3/uL (0.0-0.5); #Monocytes 0.9 10x3/uL (0.0-1.1); #Neutrophils 4.2 10x3/uL (1.5-8.4); %Basophils 0.5 % (0.0-2.0); %Eosinophils 6.5 % (0.0-6.0); %Lymphocytes 23.2 % (18.0-47.0); %Monocytes 12.8 % (0.0-10.0); %Neutrophils 56.6 % (40.0-75.0); Hemoglobin 8.2 g/dL (12.0-15.5); Mean Corpuscular HGB CONC 29.9 g/dL (32.0-36.0); Mean Corpuscular Hemoglobin 32.8 pg (27.0-33.0); Mean Corpuscular Volume 109.6 fl (81.6-98.3); Mean Platelet Volume 10.5 fl (7.4-10.4); Platelet Count 158 10x3/uL (150-450); RBC Distribution Width 17.2 % (11.5-14.5); White Blood Cell (WBC) Count 7.4 10x3/uL (3.5-10.5)
[2022-04-07 05:57] LABS: Anion Gap 12 mmol/L (10-20); BUN (Urea Nitrogen) 25 mg/dL (9.8-20.1); Calc. Creatinine Clearance 44 mL/min (70-130); Calcium 9.5 mg/dL (7.8-10.44); Carbon Dioxide 29 mmol/L (23-31); Chloride 106 mmol/L (98-107); Estimated GFR 17; Glucose 84 mg/dL (80-115); Potassium 4.4 mmol/L (3.5-5.1); Sodium 143 mmol/L (136-145)
[2022-04-07 06:01] LABS: Basophilic Stippling SLIGHT = 1-2 cells (100X) (None Seen); Hypochromia SLIGHT = 6-15 cells (100X) (0-5/hpf); Macrocytosis SLIGHT = 6-15 cells (100X) (0-5/hpf)
[2022-04-07 06:02] LABS: Platelet Morphology Comment Appears Adequate
[2022-04-07] MEDS: Midodrine HCl 5 MG TAB PO PRN (06:27)
[2022-04-07] MEDS: Sodium Chloride 0.9% 1,000 ML IV SCH ×4 (07:18→23:33)
[2022-04-07] MEDS ORDERED: Atorvastatin Calcium 10 MG TAB PO SCH (09:00)
[2022-04-07] MEDS ORDERED: FESOTERODINE FUMARATE 4 MG PO SCH (09:00)
[2022-04-07] MEDS: rOPINIRole HCl 1 MG TAB PO SCH ×2 (09:35→21:20)
[2022-04-07] MEDS: Enoxaparin Sodium 30 MG/0.3 ML SYRINGE SC SCH (09:36)
[2022-04-07] MEDS: Aspirin Chewable 81 MG TAB PO SCH (09:36)
[2022-04-07] MEDS: Loratadine 10 MG TAB PO SCH (09:36)
[2022-04-07] MEDS: Trospium 20 MG TAB PO SCH (09:36)
[2022-04-07] MEDS: Alogliptin 6.25 MG TAB PO SCH (09:36)
[2022-04-07] MEDS: Gabapentin 100 MG CAP PO SCH ×3 (09:36→21:20)
[2022-04-07] MEDS: Sertraline 25 MG TAB PO SCH (09:37)
[2022-04-07] MEDS: Multivit, Therapeutic 1 TAB PO SCH (09:37)
[2022-04-07] MEDS: Thiamine 100 MG TAB PO SCH (09:37)
[2022-04-07] MEDS: Pramipexole Di-HCl 0.25 MG TAB PO SCH ×3 (09:38→21:21)
[2022-04-07] MEDS: Atorvastatin Calcium 20 MG TAB PO SCH (21:21)
[2022-04-08 04:13] LABS: #Eosinphils 0.4 10x3/uL (0.0-0.5); #Monocytes 0.8 10x3/uL (0.0-1.1); #Neutrophils 3.2 10x3/uL (1.5-8.4); %Basophils 0.5 % (0.0-2.0); %Eosinophils 6.4 % (0.0-6.0); %Lymphocytes 22.5 % (18.0-47.0); %Monocytes 13.4 % (0.0-10.0); %Neutrophils 56.8 % (40.0-75.0); Hemoglobin 7.7 g/dL (12.0-15.5); Mean Corpuscular HGB CONC 30.4 g/dL (32.0-36.0); Mean Corpuscular Hemoglobin 33.2 pg (27.0-33.0); Mean Corpuscular Volume 109.1 fl (81.6-98.3); Mean Platelet Volume 10.4 fl (7.4-10.4); Platelet Count 124 10x3/uL (150-450); RBC Distribution Width 16.8 % (11.5-14.5); Red Blood Cell (RBC) Count 2.32 10x6/uL (3.90-5.03); White Blood Cell (WBC) Count 5.6 10x3/uL (3.5-10.5)
[2022-04-08 04:29] LABS: Anion Gap 13 mmol/L (10-20); BUN (Urea Nitrogen) 25 mg/dL (9.8-20.1); Calc. Creatinine Clearance 42 mL/min (70-130); Calcium 9.6 mg/dL (7.8-10.44); Carbon Dioxide 27 mmol/L (23-31); Chloride 105 mmol/L (98-107); Estimated GFR 16; Glucose 81 mg/dL (80-115); Potassium 4.4 mmol/L (3.5-5.1); Sodium 141 mmol/L (136-145)
[2022-04-08] MEDS: Sodium Chloride 0.9% 1,000 ML IV SCH ×3 (05:12→21:02)
[2022-04-08] MEDS: Albumin 25% 25 GM/100 ML BOT IVPB SCH ×4 (05:54→23:28)
[2022-04-08] MEDS: Alogliptin 6.25 MG TAB PO SCH (10:13)
[2022-04-08] MEDS: Aspirin Chewable 81 MG TAB PO SCH (10:14)
[2022-04-08] MEDS: rOPINIRole HCl 1 MG TAB PO SCH ×2 (10:15→21:04)
[2022-04-08] MEDS: Loratadine 10 MG TAB PO SCH (10:15)
[2022-04-08] MEDS: Pramipexole Di-HCl 0.25 MG TAB PO SCH ×3 (10:15→21:04)
[2022-04-08] MEDS: Multivit, Therapeutic 1 TAB PO SCH (10:15)
[2022-04-08] MEDS: Thiamine 100 MG TAB PO SCH (10:15)
[2022-04-08] MEDS: Enoxaparin Sodium 30 MG/0.3 ML SYRINGE SC SCH ×2 (10:16→21:03)
[2022-04-08] MEDS: Gabapentin 100 MG CAP PO SCH ×3 (10:16→21:03)
[2022-04-08] MEDS: Sertraline 25 MG TAB PO SCH (10:17)
[2022-04-08] MEDS: Trospium 20 MG TAB PO SCH (10:17)
[2022-04-08] MEDS: Atorvastatin Calcium 20 MG TAB PO SCH (21:03)
[2022-04-09] MEDS: Albumin 25% 25 GM/100 ML BOT IVPB SCH ×3 (05:25→17:29)
[2022-04-09 05:56] LABS: #Basophils 0.1 10x3/uL (0.0-0.2); #Eosinphils 0.4 10x3/uL (0.0-0.5); #Monocytes 0.8 10x3/uL (0.0-1.1); #Neutrophils 4.2 10x3/uL (1.5-8.4); %Basophils 0.8 % (0.0-2.0); %Eosinophils 5.5 % (0.0-6.0); %Neutrophils 65.9 % (40.0-75.0); Hemoglobin 8.2 g/dL (12.0-15.5); Mean Corpuscular HGB CONC 30.6 g/dL (32.0-36.0); Mean Corpuscular Hemoglobin 33.3 pg (27.0-33.0); Mean Corpuscular Volume 108.9 fl (81.6-98.3); Mean Platelet Volume 11.2 fl (7.4-10.4); Platelet Count 134 10x3/uL (150-450); RBC Distribution Width 16.7 % (11.5-14.5); Red Blood Cell (RBC) Count 2.46 10x6/uL (3.90-5.03); White Blood Cell (WBC) Count 6.4 10x3/uL (3.5-10.5)
[2022-04-09 06:09] LABS: Anion Gap 14 mmol/L (10-20); BUN (Urea Nitrogen) 25 mg/dL (9.8-20.1); Calc. Creatinine Clearance 45 mL/min (70-130); Calcium 9.9 mg/dL (7.8-10.44); Carbon Dioxide 25 mmol/L (23-31); Chloride 107 mmol/L (98-107); Estimated GFR 18; Glucose 88 mg/dL (80-115); Potassium 4.3 mmol/L (3.5-5.1); Sodium 142 mmol/L (136-145)
[2022-04-09 06:27] LABS: Macrocytosis SLIGHT = 6-15 cells (100X) (0-5/hpf)
[2022-04-09 06:28] LABS: Anisocytosis SLIGHT = 6-15 cells (100X) (0-5/hpf); Platelet Morphology Comment Appears Adequate
[2022-04-09] MEDS: Enoxaparin Sodium 30 MG/0.3 ML SYRINGE SC SCH ×2 (10:00→21:02)
[2022-04-09] MEDS: Multivit, Therapeutic 1 TAB PO SCH (10:01)
[2022-04-09] MEDS: Trospium 20 MG TAB PO SCH (10:01)
[2022-04-09] MEDS: rOPINIRole HCl 1 MG TAB PO SCH ×2 (10:01→21:01)
[2022-04-09] MEDS: Thiamine 100 MG TAB PO SCH (10:02)
[2022-04-09] MEDS: Aspirin Chewable 81 MG TAB PO SCH (10:02)
[2022-04-09] MEDS: Gabapentin 100 MG CAP PO SCH ×3 (10:02→21:01)
[2022-04-09] MEDS: Alogliptin 6.25 MG TAB PO SCH (10:02)
[2022-04-09] MEDS: Pramipexole Di-HCl 0.25 MG TAB PO SCH ×3 (10:02→21:01)
[2022-04-09] MEDS: Sertraline 25 MG TAB PO SCH (10:03)
[2022-04-09] MEDS: Loratadine 10 MG TAB PO SCH (10:03)
[2022-04-09] MEDS: Sodium Chloride 0.9% 1,000 ML IV SCH (10:03)
[2022-04-09] MEDS: Atorvastatin Calcium 20 MG TAB PO SCH (21:01)
[2022-04-10] MEDS: Albumin 25% 25 GM/100 ML BOT IVPB SCH ×5 (00:01→23:53)
[2022-04-10 06:58] LABS: #Eosinphils 0.3 10x3/uL (0.0-0.5); #Monocytes 0.7 10x3/uL (0.0-1.1); #Neutrophils 4.3 10x3/uL (1.5-8.4); %Basophils 0.6 % (0.0-2.0); %Eosinophils 4.7 % (0.0-6.0); %Lymphocytes 12.5 % (18.0-47.0); %Neutrophils 70.2 % (40.0-75.0); Hemoglobin 8.4 g/dL (12.0-15.5); Mean Corpuscular HGB CONC 30.8 g/dL (32.0-36.0); Mean Corpuscular Hemoglobin 32.9 pg (27.0-33.0); Mean Corpuscular Volume 107.1 fl (81.6-98.3); Mean Platelet Volume 11.2 fl (7.4-10.4); Platelet Count 133 10x3/uL (150-450); RBC Distribution Width 16.5 % (11.5-14.5); Red Blood Cell (RBC) Count 2.55 10x6/uL (3.90-5.03); White Blood Cell (WBC) Count 6.2 10x3/uL (3.5-10.5)
[2022-04-10 07:36] LABS: Anion Gap 16 mmol/L (10-20); BUN (Urea Nitrogen) 25 mg/dL (9.8-20.1); Calc. Creatinine Clearance 51 mL/min (70-130); Calcium 10.5 mg/dL (7.8-10.44); Carbon Dioxide 23 mmol/L (23-31); Chloride 106 mmol/L (98-107); Estimated GFR 20; Glucose 79 mg/dL (80-115); Potassium 4.4 mmol/L (3.5-5.1); Sodium 141 mmol/L (136-145)
[2022-04-10] MEDS: Gabapentin 100 MG CAP PO SCH ×3 (09:32→21:19)
[2022-04-10] MEDS: Sertraline 25 MG TAB PO SCH (09:32)
[2022-04-10] MEDS: Multivit, Therapeutic 1 TAB PO SCH (09:32)
[2022-04-10] MEDS: Trospium 20 MG TAB PO SCH (09:32)
[2022-04-10] MEDS: Thiamine 100 MG TAB PO SCH (09:32)
[2022-04-10] MEDS: Aspirin Chewable 81 MG TAB PO SCH (09:32)
[2022-04-10] MEDS: Enoxaparin Sodium 30 MG/0.3 ML SYRINGE SC SCH ×2 (09:33→21:19)
[2022-04-10] MEDS: Alogliptin 6.25 MG TAB PO SCH (09:33)
[2022-04-10] MEDS: Loratadine 10 MG TAB PO SCH (09:33)
[2022-04-10] MEDS: Pramipexole Di-HCl 0.25 MG TAB PO SCH ×3 (09:33→21:19)
[2022-04-10] MEDS: rOPINIRole HCl 1 MG TAB PO SCH ×2 (09:33→21:19)
[2022-04-10] MEDS ORDERED: Polyethylene Glycol 3350 17 GM Packet PO PRN (15:52)
[2022-04-10] MEDS ORDERED: Amlodipine 10 MG TAB PO SCH (16:00)
[2022-04-10] MEDS: Carvedilol 25 MG TAB PO SCH (17:25)
[2022-04-10] MEDS: Atorvastatin Calcium 20 MG TAB PO SCH (21:19)
[2022-04-11 05:26] LABS: #Eosinphils 0.2 10x3/uL (0.0-0.5); #Monocytes 0.5 10x3/uL (0.0-1.1); #Neutrophils 3.9 10x3/uL (1.5-8.4); %Basophils 0.7 % (0.0-2.0); %Eosinophils 3.2 % (0.0-6.0); %Lymphocytes 14.6 % (18.0-47.0); %Monocytes 9.6 % (0.0-10.0); %Neutrophils 70.8 % (40.0-75.0); Hemoglobin 7.6 g/dL (12.0-15.5); Mean Corpuscular HGB CONC 30.5 g/dL (32.0-36.0); Mean Corpuscular Hemoglobin 32.8 pg (27.0-33.0); Mean Corpuscular Volume 107.3 fl (81.6-98.3); Platelet Count 127 10x3/uL (150-450); RBC Distribution Width 16.2 % (11.5-14.5); Red Blood Cell (RBC) Count 2.32 10x6/uL (3.90-5.03); White Blood Cell (WBC) Count 5.5 10x3/uL (3.5-10.5)
[2022-04-11] MEDS: Albumin 25% 25 GM/100 ML BOT IVPB SCH (05:29)
[2022-04-11 05:43] LABS: Anion Gap 15 mmol/L (10-20); BUN (Urea Nitrogen) 26 mg/dL (9.8-20.1); Calc. Creatinine Clearance 51 mL/min (70-130); Calcium 10.5 mg/dL (7.8-10.44); Carbon Dioxide 24 mmol/L (23-31); Chloride 106 mmol/L (98-107); Estimated GFR 20; Glucose 74 mg/dL (80-115); Potassium 4.4 mmol/L (3.5-5.1); Sodium 141 mmol/L (136-145)
[2022-04-11 06:12] LABS: Microcytosis SLIGHT = 6-15 cells (100X) (0-5/hpf); Platelet Morphology Comment Appears Decreased
[2022-04-11 06:33] LABS: Hypochromia SLIGHT = 6-15 cells (100X) (0-5/hpf)
[2022-04-11] MEDS: rOPINIRole HCl 1 MG TAB PO SCH ×2 (11:31→21:01)
[2022-04-11] MEDS: Gabapentin 100 MG CAP PO SCH ×3 (11:31→21:00)
[2022-04-11] MEDS: Loratadine 10 MG TAB PO SCH (11:32)
[2022-04-11] MEDS: Aspirin Chewable 81 MG TAB PO SCH (11:33)
[2022-04-11] MEDS: Alogliptin 6.25 MG TAB PO SCH (11:33)
[2022-04-11] MEDS: Pramipexole Di-HCl 0.25 MG TAB PO SCH ×3 (11:33→21:01)
[2022-04-11] MEDS: Thiamine 100 MG TAB PO SCH (11:34)
[2022-04-11] MEDS: Trospium 20 MG TAB PO SCH (11:34)
[2022-04-11] MEDS: Enoxaparin Sodium 30 MG/0.3 ML SYRINGE SC SCH ×2 (11:35→21:00)
[2022-04-11] MEDS: Multivit, Therapeutic 1 TAB PO SCH (11:35)
[2022-04-11] MEDS: Sertraline 25 MG TAB PO SCH (11:35)
[2022-04-11] MEDS: Carvedilol 25 MG TAB PO SCH ×2 (11:37→16:21)
[2022-04-11] MEDS: Acetaminophen 325 MG TAB PO PRN (11:38)
[2022-04-11] MEDS: Atorvastatin Calcium 20 MG TAB PO SCH (21:00)
[2022-04-12 07:56] LABS: #Eosinphils 0.4 10x3/uL (0.0-0.5); #Monocytes 0.7 10x3/uL (0.0-1.1); #Neutrophils 3.6 10x3/uL (1.5-8.4); %Basophils 0.7 % (0.0-2.0); %Eosinophils 6.7 % (0.0-6.0); %Monocytes 11.9 % (0.0-10.0); Hemoglobin 8.4 g/dL (12.0-15.5); Mean Corpuscular HGB CONC 29.9 g/dL (32.0-36.0); Mean Corpuscular Hemoglobin 33.1 pg (27.0-33.0); Mean Corpuscular Volume 110.6 fl (81.6-98.3); Mean Platelet Volume 11.2 fl (7.4-10.4); Platelet Count 139 10x3/uL (150-450); RBC Distribution Width 16.7 % (11.5-14.5); Red Blood Cell (RBC) Count 2.54 10x6/uL (3.90-5.03); White Blood Cell (WBC) Count 5.4 10x3/uL (3.5-10.5)
[2022-04-12 08:06] LABS: Anion Gap 13 mmol/L (10-20); BUN (Urea Nitrogen) 28 mg/dL (9.8-20.1); Calc. Creatinine Clearance 42 mL/min (70-130); Calcium 10.5 mg/dL (7.8-10.44); Carbon Dioxide 26 mmol/L (23-31); Chloride 106 mmol/L (98-107); Estimated GFR 16; Glucose 80 mg/dL (80-115); Potassium 4.4 mmol/L (3.5-5.1); Sodium 141 mmol/L (136-145)
[2022-04-12] MEDS ORDERED: Enoxaparin Sodium 30 MG/0.3 ML SYRINGE ONE (10:36)
[2022-04-12] MEDS: rOPINIRole HCl 1 MG TAB PO SCH ×2 (10:49→22:28)
[2022-04-12] MEDS: Multivit, Therapeutic 1 TAB PO SCH (10:50)
[2022-04-12] MEDS: Aspirin Chewable 81 MG TAB PO SCH (10:50)
[2022-04-12] MEDS: Thiamine 100 MG TAB PO SCH (10:50)
[2022-04-12] MEDS: Carvedilol 25 MG TAB PO SCH ×3 (10:50→17:05)
[2022-04-12] MEDS: Sertraline 25 MG TAB PO SCH (10:50)
[2022-04-12] MEDS: Trospium 20 MG TAB PO SCH (10:50)
[2022-04-12] MEDS: Gabapentin 100 MG CAP PO SCH ×3 (10:51→22:27)
[2022-04-12] MEDS: Loratadine 10 MG TAB PO SCH (10:51)
[2022-04-12] MEDS: Pramipexole Di-HCl 0.25 MG TAB PO SCH ×3 (10:51→22:26)
[2022-04-12] MEDS: Enoxaparin Sodium 30 MG/0.3 ML SYRINGE SC SCH ×2 (10:51→22:32)
[2022-04-12] MEDS: Alogliptin 6.25 MG TAB PO SCH (10:52)
[2022-04-12] MEDS: Sodium Chloride 0.9% 1,000 ML IV SCH (15:24)
[2022-04-12] MEDS: Atorvastatin Calcium 20 MG TAB PO SCH (22:28)
[2022-04-13 06:18] LABS: #Eosinphils 0.3 10x3/uL (0.0-0.5); #Monocytes 0.6 10x3/uL (0.0-1.1); #Neutrophils 3.3 10x3/uL (1.5-8.4); %Basophils 0.6 % (0.0-2.0); %Lymphocytes 18.5 % (18.0-47.0); %Monocytes 11.7 % (0.0-10.0); %Neutrophils 62.6 % (40.0-75.0); Hemoglobin 9.7 g/dL (12.0-15.5); Mean Corpuscular HGB CONC 30.5 g/dL (32.0-36.0); Mean Corpuscular Hemoglobin 33.3 pg (27.0-33.0); Mean Corpuscular Volume 109.3 fl (81.6-98.3); Mean Platelet Volume 11.4 fl (7.4-10.4); Platelet Count 142 10x3/uL (150-450); RBC Distribution Width 16.6 % (11.5-14.5); Red Blood Cell (RBC) Count 2.91 10x6/uL (3.90-5.03); White Blood Cell (WBC) Count 5.2 10x3/uL (3.5-10.5)
[2022-04-13 06:20] LABS: Anion Gap 14 mmol/L (10-20); BUN (Urea Nitrogen) 28 mg/dL (9.8-20.1); Calc. Creatinine Clearance 38 mL/min (70-130); Calcium 10.6 mg/dL (7.8-10.44); Carbon Dioxide 25 mmol/L (23-31); Chloride 107 mmol/L (98-107); Estimated GFR 15; Glucose 74 mg/dL (80-115); Potassium 4.6 mmol/L (3.5-5.1); Sodium 141 mmol/L (136-145)
[2022-04-13] MEDS: Sodium Chloride 0.9% 1,000 ML IV SCH ×3 (07:45→22:32)
[2022-04-13] MEDS ORDERED: Sodium Chloride 0.9% 250 ML IV SCH (08:30)
[2022-04-13] MEDS: Albumin 25% 25 GM/100 ML BOT IVPB SCH ×3 (08:42→21:40)
[2022-04-13] MEDS: Thiamine 100 MG TAB PO SCH (08:43)
[2022-04-13] MEDS: Trospium 20 MG TAB PO SCH (08:43)
[2022-04-13] MEDS: Gabapentin 100 MG CAP PO SCH ×3 (08:43→21:42)
[2022-04-13] MEDS: Pramipexole Di-HCl 0.25 MG TAB PO SCH ×3 (08:44→21:42)
[2022-04-13] MEDS: Aspirin Chewable 81 MG TAB PO SCH (08:44)
[2022-04-13] MEDS: Loratadine 10 MG TAB PO SCH (08:44)
[2022-04-13] MEDS: rOPINIRole HCl 1 MG TAB PO SCH ×2 (08:45→21:42)
[2022-04-13] MEDS: Multivit, Therapeutic 1 TAB PO SCH (08:45)
[2022-04-13] MEDS: Enoxaparin Sodium 30 MG/0.3 ML SYRINGE SC SCH ×2 (08:45→21:41)
[2022-04-13] MEDS: Carvedilol 25 MG TAB PO SCH (08:46)
[2022-04-13] MEDS: Sertraline 25 MG TAB PO SCH (08:46)
[2022-04-13] MEDS: Alogliptin 6.25 MG TAB PO SCH (10:00)
[2022-04-13] MEDS ORDERED: Albumin 25% 25 GM/100 ML BOT IVPB SCH (12:00)
[2022-04-14] MEDS: Albumin 25% 25 GM/100 ML BOT IVPB SCH (01:52)
[2022-04-14] MEDS: Sodium Chloride 0.9% 1,000 ML IV SCH ×2 (05:38→16:20)
[2022-04-14 05:47] LABS: #Eosinphils 0.3 10x3/uL (0.0-0.5); #Monocytes 0.7 10x3/uL (0.0-1.1); #Neutrophils 3.4 10x3/uL (1.5-8.4); %Basophils 0.6 % (0.0-2.0); %Eosinophils 5.5 % (0.0-6.0); %Monocytes 12.6 % (0.0-10.0); %Neutrophils 64.5 % (40.0-75.0); Hemoglobin 8.2 g/dL (12.0-15.5); Mean Corpuscular HGB CONC 30.1 g/dL (32.0-36.0); Mean Corpuscular Hemoglobin 33.2 pg (27.0-33.0); Mean Corpuscular Volume 110.1 fl (81.6-98.3); Mean Platelet Volume 11.6 fl (7.4-10.4); Platelet Count 136 10x3/uL (150-450); RBC Distribution Width 16.4 % (11.5-14.5); Red Blood Cell (RBC) Count 2.47 10x6/uL (3.90-5.03); White Blood Cell (WBC) Count 5.2 10x3/uL (3.5-10.5)
[2022-04-14 05:51] LABS: Anion Gap 15 mmol/L (10-20); BUN (Urea Nitrogen) 29 mg/dL (9.8-20.1); Calc. Creatinine Clearance 35 mL/min (70-130); Calcium 10.6 mg/dL (7.8-10.44); Carbon Dioxide 24 mmol/L (23-31); Chloride 106 mmol/L (98-107); Estimated GFR 13; Glucose 87 mg/dL (80-115); Potassium 4.6 mmol/L (3.5-5.1); Sodium 140 mmol/L (136-145)
[2022-04-14] MEDS: Trospium 20 MG TAB PO SCH (10:51)
[2022-04-14] MEDS: Multivit, Therapeutic 1 TAB PO SCH (10:51)
[2022-04-14] MEDS: Aspirin Chewable 81 MG TAB PO SCH (10:51)
[2022-04-14] MEDS: Gabapentin 100 MG CAP PO SCH ×3 (10:51→22:17)
[2022-04-14] MEDS: Enoxaparin Sodium 30 MG/0.3 ML SYRINGE SC SCH ×2 (10:51→22:12)
[2022-04-14] MEDS: rOPINIRole HCl 1 MG TAB PO SCH ×2 (10:51→22:24)
[2022-04-14] MEDS: Pramipexole Di-HCl 0.25 MG TAB PO SCH ×3 (10:52→22:22)
[2022-04-14] MEDS: Sertraline 25 MG TAB PO SCH (10:52)
[2022-04-14] MEDS: Thiamine 100 MG TAB PO SCH (10:52)
[2022-04-14] MEDS: Loratadine 10 MG TAB PO SCH (10:52)
[2022-04-14] MEDS: Alogliptin 6.25 MG TAB PO SCH (10:52)
[2022-04-15] MEDS: Sodium Chloride 0.9% 1,000 ML IV SCH ×2 (01:36→11:15)
[2022-04-15 06:59] LABS: #Basophils 0.1 10x3/uL (0.0-0.2); #Eosinphils 0.4 10x3/uL (0.0-0.5); #Monocytes 0.7 10x3/uL (0.0-1.1); #Neutrophils 3.3 10x3/uL (1.5-8.4); %Basophils 0.9 % (0.0-2.0); %Eosinophils 7.4 % (0.0-6.0); %Lymphocytes 21.3 % (18.0-47.0); %Monocytes 12.7 % (0.0-10.0); %Neutrophils 56.8 % (40.0-75.0); Hemoglobin 8.3 g/dL (12.0-15.5); Mean Corpuscular HGB CONC 30.6 g/dL (32.0-36.0); Mean Corpuscular Hemoglobin 33.1 pg (27.0-33.0); Mean Platelet Volume 11.1 fl (7.4-10.4); Platelet Count 150 10x3/uL (150-450); RBC Distribution Width 16.9 % (11.5-14.5); Red Blood Cell (RBC) Count 2.51 10x6/uL (3.90-5.03); White Blood Cell (WBC) Count 5.8 10x3/uL (3.5-10.5)
[2022-04-15 07:17] LABS: Anion Gap 16 mmol/L (10-20); BUN (Urea Nitrogen) 31 mg/dL (9.8-20.1); Calc. Creatinine Clearance 34 mL/min (70-130); Calcium 10.2 mg/dL (7.8-10.44); Carbon Dioxide 21 mmol/L (23-31); Chloride 107 mmol/L (98-107); Estimated GFR 12; Glucose 76 mg/dL (80-115); Potassium 4.4 mmol/L (3.5-5.1); Sodium 140 mmol/L (136-145)
[2022-04-15] MEDS: Pramipexole Di-HCl 0.25 MG TAB PO SCH ×2 (10:00→14:26)
[2022-04-15] MEDS: Loratadine 10 MG TAB PO SCH (10:00)
[2022-04-15] MEDS: Gabapentin 100 MG CAP PO SCH ×3 (10:00→22:31)
[2022-04-15] MEDS: Ferrous Sulfate 325 MG TAB PO SCH ×2 (10:00→17:45)
[2022-04-15] MEDS: Thiamine 100 MG TAB PO SCH (10:01)
[2022-04-15] MEDS: EPOETIN ALFA-EPBX (ESRD) 4,000 UNIT/ML VIAL SC SCH (10:01)
[2022-04-15] MEDS: Alogliptin 6.25 MG TAB PO SCH (10:01)
[2022-04-15] MEDS: Enoxaparin Sodium 30 MG/0.3 ML SYRINGE SC SCH ×2 (10:03→22:32)
[2022-04-15] MEDS: Aspirin Chewable 81 MG TAB PO SCH (10:03)
[2022-04-15] MEDS: Sertraline 25 MG TAB PO SCH (10:04)
[2022-04-15] MEDS: rOPINIRole HCl 1 MG TAB PO SCH (10:04)
[2022-04-15] MEDS: Multivit, Therapeutic 1 TAB PO SCH (10:04)
[2022-04-15] MEDS: Trospium 20 MG TAB PO SCH (10:05)
[2022-04-16] MEDS: Sodium Chloride 0.9% 1,000 ML IV SCH ×3 (01:36→17:29)
[2022-04-16 06:24] LABS: Anion Gap 16 mmol/L (10-20); BUN (Urea Nitrogen) 31 mg/dL (9.8-20.1); Calc. Creatinine Clearance 35 mL/min (70-130); Calcium 10.3 mg/dL (7.8-10.44); Carbon Dioxide 20 mmol/L (23-31); Chloride 110 mmol/L (98-107); Estimated GFR 13; Glucose 71 mg/dL (80-115); Potassium 4.4 mmol/L (3.5-5.1); Sodium 142 mmol/L (136-145)
[2022-04-16 06:48] LABS: #Basophils 0.1 10x3/uL (0.0-0.2); #Eosinphils 0.5 10x3/uL (0.0-0.5); #Monocytes 0.7 10x3/uL (0.0-1.1); #Neutrophils 3.5 10x3/uL (1.5-8.4); %Basophils 0.8 % (0.0-2.0); %Eosinophils 7.6 % (0.0-6.0); %Lymphocytes 19.8 % (18.0-47.0); %Monocytes 12.1 % (0.0-10.0); Mean Corpuscular HGB CONC 31.3 g/dL (32.0-36.0); Mean Corpuscular Hemoglobin 33.3 pg (27.0-33.0); Mean Corpuscular Volume 106.7 fl (81.6-98.3); Mean Platelet Volume 11.2 fl (7.4-10.4); Platelet Count 141 10x3/uL (150-450); RBC Distribution Width 16.7 % (11.5-14.5); White Blood Cell (WBC) Count 6.1 10x3/uL (3.5-10.5)
[2022-04-16] MEDS: Thiamine 100 MG TAB PO SCH (10:09)
[2022-04-16] MEDS: Multivit, Therapeutic 1 TAB PO SCH (10:09)
[2022-04-16] MEDS: Aspirin Chewable 81 MG TAB PO SCH (10:10)
[2022-04-16] MEDS: Gabapentin 100 MG CAP PO SCH ×3 (10:10→21:48)
[2022-04-16] MEDS: Ferrous Sulfate 325 MG TAB PO SCH ×2 (10:10→17:29)
[2022-04-16] MEDS: Trospium 20 MG TAB PO SCH (10:10)
[2022-04-16] MEDS: Loratadine 10 MG TAB PO SCH (10:10)
[2022-04-16] MEDS: Sertraline 25 MG TAB PO SCH (10:10)
[2022-04-16] MEDS: Alogliptin 6.25 MG TAB PO SCH (10:11)
[2022-04-16] MEDS: Enoxaparin Sodium 30 MG/0.3 ML SYRINGE SC SCH ×2 (10:11→21:48)
[2022-04-17] MEDS: Sodium Chloride 0.9% 1,000 ML IV SCH ×3 (01:55→17:14)
[2022-04-17 04:41] LABS: #Basophils 0.1 10x3/uL (0.0-0.2); #Eosinphils 0.4 10x3/uL (0.0-0.5); #Monocytes 0.7 10x3/uL (0.0-1.1); #Neutrophils 3.3 10x3/uL (1.5-8.4); %Basophils 1.1 % (0.0-2.0); %Eosinophils 7.6 % (0.0-6.0); %Lymphocytes 19.8 % (18.0-47.0); %Monocytes 12.2 % (0.0-10.0); %Neutrophils 57.4 % (40.0-75.0); Hemoglobin 8.2 g/dL (12.0-15.5); Mean Corpuscular HGB CONC 30.3 g/dL (32.0-36.0); Mean Corpuscular Hemoglobin 32.8 pg (27.0-33.0); Mean Corpuscular Volume 108.4 fl (81.6-98.3); Mean Platelet Volume 10.7 fl (7.4-10.4); Platelet Count 158 10x3/uL (150-450); RBC Distribution Width 16.8 % (11.5-14.5); White Blood Cell (WBC) Count 5.7 10x3/uL (3.5-10.5)
[2022-04-17 04:53] LABS: Anion Gap 15 mmol/L (10-20); BUN (Urea Nitrogen) 31 mg/dL (9.8-20.1); Calc. Creatinine Clearance 37 mL/min (70-130); Calcium 10.4 mg/dL (7.8-10.44); Carbon Dioxide 21 mmol/L (23-31); Chloride 111 mmol/L (98-107); Estimated GFR 14; Glucose 83 mg/dL (80-115); Potassium 4.4 mmol/L (3.5-5.1); Sodium 143 mmol/L (136-145)
[2022-04-17 06:33] LABS: Macrocytosis SLIGHT = 6-15 cells (100X) (0-5/hpf); Platelet Morphology Comment Appears Adequate
[2022-04-17 06:34] LABS: Hypochromia SLIGHT = 6-15 cells (100X) (0-5/hpf)
[2022-04-17] MEDS: Gabapentin 100 MG CAP PO SCH ×3 (09:30→21:39)
[2022-04-17] MEDS: Enoxaparin Sodium 30 MG/0.3 ML SYRINGE SC SCH ×2 (09:30→21:39)
[2022-04-17] MEDS: Trospium 20 MG TAB PO SCH (09:31)
[2022-04-17] MEDS: Ferrous Sulfate 325 MG TAB PO SCH ×2 (09:31→17:13)
[2022-04-17] MEDS: Sertraline 25 MG TAB PO SCH (09:31)
[2022-04-17] MEDS: Thiamine 100 MG TAB PO SCH (09:31)
[2022-04-17] MEDS: Multivit, Therapeutic 1 TAB PO SCH (09:31)
[2022-04-17] MEDS: Loratadine 10 MG TAB PO SCH (09:31)
[2022-04-17] MEDS: Alogliptin 6.25 MG TAB PO SCH (09:31)
[2022-04-17] MEDS: Aspirin Chewable 81 MG TAB PO SCH (09:31)
[2022-04-18] MEDS: Sodium Chloride 0.9% 1,000 ML IV SCH ×3 (00:20→16:47)
[2022-04-18 04:52] LABS: Anion Gap 12 mmol/L (10-20); BUN (Urea Nitrogen) 29 mg/dL (9.8-20.1); Calc. Creatinine Clearance 38 mL/min (70-130); Carbon Dioxide 22 mmol/L (23-31); Chloride 114 mmol/L (98-107); Estimated GFR 14; Glucose 79 mg/dL (80-115); Potassium 4.2 mmol/L (3.5-5.1); Sodium 144 mmol/L (136-145)
[2022-04-18 04:55] LABS: Hemoglobin 7.6 g/dL (12.0-15.5); MDiff Complete? YES; Mean Corpuscular HGB CONC 30.3 g/dL (32.0-36.0); Mean Corpuscular Hemoglobin 32.5 pg (27.0-33.0); Mean Corpuscular Volume 107.3 fl (81.6-98.3); Mean Platelet Volume 10.8 fl (7.4-10.4); Platelet Count 139 10x3/uL (150-450); RBC Distribution Width 17.2 % (11.5-14.5); Red Blood Cell (RBC) Count 2.34 10x6/uL (3.90-5.03); White Blood Cell (WBC) Count 5.2 10x3/uL (3.5-10.5)
[2022-04-18 06:25] LABS: Eosinophils 12 % (0-10); Lymphocytes 20 % (21-51); Monocytes 13 % (0-10); Neutrophil 55 % (42-75)
[2022-04-18 06:28] LABS: Anisocytosis SLIGHT = 6-15 cells (100X) (0-5/hpf); Hypochromia SLIGHT = 6-15 cells (100X) (0-5/hpf); Macrocytosis SLIGHT = 6-15 cells (100X) (0-5/hpf); Polychromasia SLIGHT = 2-3 cells (100X) (0-2/hpf)
[2022-04-18 06:29] LABS: Platelet Morphology Comment Appears Decreased
[2022-04-18] MEDS: Gabapentin 100 MG CAP PO SCH ×3 (10:30→21:05)
[2022-04-18] MEDS: Multivit, Therapeutic 1 TAB PO SCH (10:30)
[2022-04-18] MEDS: Alogliptin 6.25 MG TAB PO SCH (10:30)
[2022-04-18] MEDS: Thiamine 100 MG TAB PO SCH (10:31)
[2022-04-18] MEDS: Ferrous Sulfate 325 MG TAB PO SCH ×2 (10:31→16:32)
[2022-04-18] MEDS: Loratadine 10 MG TAB PO SCH (10:31)
[2022-04-18] MEDS: Aspirin Chewable 81 MG TAB PO SCH (10:32)
[2022-04-18] MEDS: Trospium 20 MG TAB PO SCH (10:32)
[2022-04-18] MEDS: Enoxaparin Sodium 30 MG/0.3 ML SYRINGE SC SCH ×2 (10:32→21:05)
[2022-04-18] MEDS: Sertraline 25 MG TAB PO SCH (10:33)
[2022-04-19] MEDS: Sodium Chloride 0.9% 1,000 ML IV SCH ×3 (00:32→17:58)
[2022-04-19 04:40] LABS: #Basophils 0.1 10x3/uL (0.0-0.2); #Eosinphils 0.5 10x3/uL (0.0-0.5); #Monocytes 0.8 10x3/uL (0.0-1.1); #Neutrophils 2.9 10x3/uL (1.5-8.4); %Basophils 0.9 % (0.0-2.0); %Eosinophils 8.3 % (0.0-6.0); %Monocytes 14.9 % (0.0-10.0); %Neutrophils 51.5 % (40.0-75.0); Hemoglobin 8.7 g/dL (12.0-15.5); Mean Corpuscular HGB CONC 30.3 g/dL (32.0-36.0); Mean Corpuscular Hemoglobin 32.3 pg (27.0-33.0); Mean Corpuscular Volume 106.7 fl (81.6-98.3); Mean Platelet Volume 10.6 fl (7.4-10.4); Platelet Count 146 10x3/uL (150-450); Red Blood Cell (RBC) Count 2.69 10x6/uL (3.90-5.03); White Blood Cell (WBC) Count 5.6 10x3/uL (3.5-10.5)
[2022-04-19 04:48] LABS: Anion Gap 12 mmol/L (10-20); BUN (Urea Nitrogen) 29 mg/dL (9.8-20.1); Calc. Creatinine Clearance 38 mL/min (70-130); Calcium 10.1 mg/dL (7.8-10.44); Carbon Dioxide 21 mmol/L (23-31); Chloride 113 mmol/L (98-107); Estimated GFR 15; Glucose 82 mg/dL (80-115); Potassium 4.3 mmol/L (3.5-5.1); Sodium 142 mmol/L (136-145)
[2022-04-19 07:08] LABS: Anisocytosis SLIGHT = 6-15 cells (100X) (0-5/hpf); Macrocytosis SLIGHT = 6-15 cells (100X) (0-5/hpf)
[2022-04-19 07:09] LABS: Platelet Morphology Comment Appears Adequate
[2022-04-19] MEDS: Ferrous Sulfate 325 MG TAB PO SCH ×2 (12:40→16:30)
[2022-04-19] MEDS: Thiamine 100 MG TAB PO SCH (12:40)
[2022-04-19] MEDS: Alogliptin 6.25 MG TAB PO SCH (12:40)
[2022-04-19] MEDS: Gabapentin 100 MG CAP PO SCH ×3 (12:40→22:43)
[2022-04-19] MEDS: Aspirin Chewable 81 MG TAB PO SCH (12:40)
[2022-04-19] MEDS: Loratadine 10 MG TAB PO SCH (12:40)
[2022-04-19] MEDS: Multivit, Therapeutic 1 TAB PO SCH (12:41)
[2022-04-19] MEDS: Enoxaparin Sodium 30 MG/0.3 ML SYRINGE SC SCH ×2 (12:41→22:43)
[2022-04-19] MEDS: Trospium 20 MG TAB PO SCH (12:41)
[2022-04-19] MEDS: Sertraline 25 MG TAB PO SCH (12:41)
[2022-04-20] MEDS: Sodium Chloride 0.9% 1,000 ML IV SCH ×2 (04:01→20:11)
[2022-04-20 04:07] LABS: #Basophils 0.1 10x3/uL (0.0-0.2); #Eosinphils 0.5 10x3/uL (0.0-0.5); #Monocytes 0.9 10x3/uL (0.0-1.1); #Neutrophils 3.3 10x3/uL (1.5-8.4); %Eosinophils 8.2 % (0.0-6.0); %Lymphocytes 21.7 % (18.0-47.0); %Neutrophils 52.7 % (40.0-75.0); Hemoglobin 9.1 g/dL (12.0-15.5); Mean Corpuscular HGB CONC 30.2 g/dL (32.0-36.0); Mean Corpuscular Hemoglobin 32.5 pg (27.0-33.0); Mean Corpuscular Volume 107.5 fl (81.6-98.3); Mean Platelet Volume 10.7 fl (7.4-10.4); Platelet Count 164 10x3/uL (150-450); RBC Distribution Width 18.8 % (11.5-14.5); White Blood Cell (WBC) Count 6.2 10x3/uL (3.5-10.5)
[2022-04-20 04:21] LABS: Anion Gap 10 mmol/L (10-20); BUN (Urea Nitrogen) 30 mg/dL (9.8-20.1); Calc. Creatinine Clearance 38 mL/min (70-130); Calcium 10.2 mg/dL (7.8-10.44); Carbon Dioxide 22 mmol/L (23-31); Chloride 112 mmol/L (98-107); Estimated GFR 15; Glucose 85 mg/dL (80-115); Potassium 4.3 mmol/L (3.5-5.1); Sodium 140 mmol/L (136-145)
[2022-04-20] MEDS: Loratadine 10 MG TAB PO SCH (10:31)
[2022-04-20] MEDS: Sertraline 25 MG TAB PO SCH (10:31)
[2022-04-20] MEDS: Enoxaparin Sodium 30 MG/0.3 ML SYRINGE SC SCH ×2 (10:32→20:53)
[2022-04-20] MEDS: Alogliptin 6.25 MG TAB PO SCH (10:32)
[2022-04-20] MEDS: Gabapentin 100 MG CAP PO SCH ×3 (10:32→20:52)
[2022-04-20] MEDS: Senokot S 8.6-50 MG TAB PO PRN (10:32)
[2022-04-20] MEDS: Ferrous Sulfate 325 MG TAB PO SCH ×2 (10:33→20:12)
[2022-04-20] MEDS: Trospium 20 MG TAB PO SCH (10:33)
[2022-04-20] MEDS: Thiamine 100 MG TAB PO SCH (10:34)
[2022-04-20] MEDS: Multivit, Therapeutic 1 TAB PO SCH (10:34)
[2022-04-20] MEDS: Aspirin Chewable 81 MG TAB PO SCH (10:34)
[2022-04-20] MEDS: Acetaminophen 325 MG TAB PO PRN (15:09)
[2022-04-20] MEDS: rOPINIRole HCl 1 MG TAB PO SCH (20:52)
[2022-04-21 04:18] LABS: Hemoglobin 9.4 g/dL (12.0-15.5); Mean Corpuscular HGB CONC 29.8 g/dL (32.0-36.0); Mean Corpuscular Hemoglobin 32.3 pg (27.0-33.0); Mean Corpuscular Volume 108.2 fl (81.6-98.3); Mean Platelet Volume 10.9 fl (7.4-10.4); Platelet Count 156 10x3/uL (150-450); RBC Distribution Width 18.3 % (11.5-14.5); Red Blood Cell (RBC) Count 2.91 10x6/uL (3.90-5.03); White Blood Cell (WBC) Count 7.4 10x3/uL (3.5-10.5)
[2022-04-21 04:26] LABS: Anion Gap 11 mmol/L (10-20); BUN (Urea Nitrogen) 30 mg/dL (9.8-20.1); Calc. Creatinine Clearance 36 mL/min (70-130); Calcium 10.5 mg/dL (7.8-10.44); Carbon Dioxide 21 mmol/L (23-31); Chloride 109 mmol/L (98-107); Estimated GFR 13; Glucose 83 mg/dL (80-115); Potassium 4.4 mmol/L (3.5-5.1); Sodium 137 mmol/L (136-145)
[2022-04-21] MEDS: Sodium Chloride 0.9% 1,000 ML IV SCH ×2 (05:00→23:13)
[2022-04-21 05:08] LABS: MDiff Complete? YES
[2022-04-21 05:11] LABS: Band 13 % (5-11); Eosinophils 8 % (0-10); Lymphocytes 26 % (21-51); Monocytes 16 % (0-10); Neutrophil 36 % (42-75)
[2022-04-21 05:13] LABS: Hypochromia SLIGHT = 6-15 cells (100X) (0-5/hpf); Macrocytosis SLIGHT = 6-15 cells (100X) (0-5/hpf); Platelet Morphology Comment Appears Adequate
[2022-04-21] MEDS: Multivit, Therapeutic 1 TAB PO SCH (08:19)
[2022-04-21] MEDS: Trospium 20 MG TAB PO SCH (08:19)
[2022-04-21] MEDS: Thiamine 100 MG TAB PO SCH (08:19)
[2022-04-21] MEDS: Loratadine 10 MG TAB PO SCH (08:19)
[2022-04-21] MEDS: Alogliptin 6.25 MG TAB PO SCH (08:19)
[2022-04-21] MEDS: Sertraline 25 MG TAB PO SCH (08:20)
[2022-04-21] MEDS: Aspirin Chewable 81 MG TAB PO SCH (08:20)
[2022-04-21] MEDS: Enoxaparin Sodium 30 MG/0.3 ML SYRINGE SC SCH ×2 (08:20→20:17)
[2022-04-21] MEDS: Gabapentin 100 MG CAP PO SCH ×3 (08:25→20:17)
[2022-04-21] MEDS: Ferrous Sulfate 325 MG TAB PO SCH ×2 (08:26→17:27)
[2022-04-21] MEDS: rOPINIRole HCl 1 MG TAB PO SCH (20:17)
[2022-04-22] MEDS: Sodium Chloride 0.9% 1,000 ML IV SCH ×3 (02:15→10:34)
[2022-04-22 05:10] LABS: #Eosinphils 0.3 10x3/uL (0.0-0.5); #Monocytes 0.7 10x3/uL (0.0-1.1); #Neutrophils 2.9 10x3/uL (1.5-8.4); %Basophils 0.8 % (0.0-2.0); %Eosinophils 6.1 % (0.0-6.0); %Lymphocytes 18.7 % (18.0-47.0); %Monocytes 14.3 % (0.0-10.0); %Neutrophils 59.5 % (40.0-75.0); Hemoglobin 9.1 g/dL (12.0-15.5); Mean Corpuscular Volume 106.5 fl (81.6-98.3); Platelet Count 135 10x3/uL (150-450); RBC Distribution Width 18.1 % (11.5-14.5); Red Blood Cell (RBC) Count 2.76 10x6/uL (3.90-5.03); White Blood Cell (WBC) Count 4.9 10x3/uL (3.5-10.5)
[2022-04-22 05:17] LABS: Anion Gap 13 mmol/L (10-20); BUN (Urea Nitrogen) 30 mg/dL (9.8-20.1); Calc. Creatinine Clearance 36 mL/min (70-130); Calcium 10.4 mg/dL (7.8-10.44); Carbon Dioxide 20 mmol/L (23-31); Chloride 111 mmol/L (98-107); Estimated GFR 13; Glucose 81 mg/dL (80-115); Potassium 4.6 mmol/L (3.5-5.1); Sodium 139 mmol/L (136-145)
[2022-04-22 05:27] LABS: Anisocytosis SLIGHT = 6-15 cells (100X) (0-5/hpf); Macrocytosis SLIGHT = 6-15 cells (100X) (0-5/hpf)
[2022-04-22 05:28] LABS: Platelet Morphology Comment Appears Adequate
[2022-04-22] MEDS ORDERED: Gabapentin 100 MG CAP PO SCH (09:00)
[2022-04-22] MEDS: Aspirin Chewable 81 MG TAB PO SCH (10:32)
[2022-04-22] MEDS: Enoxaparin Sodium 30 MG/0.3 ML SYRINGE SC SCH ×2 (10:32→21:03)
[2022-04-22] MEDS: Alogliptin 6.25 MG TAB PO SCH ×2 (10:32→10:34)
[2022-04-22] MEDS: Multivit, Therapeutic 1 TAB PO SCH (10:32)
[2022-04-22] MEDS: Thiamine 100 MG TAB PO SCH (10:33)
[2022-04-22] MEDS: Sertraline 25 MG TAB PO SCH (10:33)
[2022-04-22] MEDS: Ferrous Sulfate 325 MG TAB PO SCH ×2 (10:33→17:02)
[2022-04-22] MEDS: Loratadine 10 MG TAB PO SCH (10:33)
[2022-04-22] MEDS: Trospium 20 MG TAB PO SCH (10:34)
[2022-04-22] MEDS: EPOETIN ALFA-EPBX (ESRD) 4,000 UNIT/ML VIAL SC SCH (12:15)
[2022-04-22] MEDS ORDERED: Digoxin 0.5 MG/2 ML AMP SLOW IVP SCH (14:15)
[2022-04-22 14:41] LABS: Actual Bicarbonate (HCO3v) 20 mEq/L (22-28); Base Excess -7.3 mEq/L (-2.0 to +3.0); Calcium, Ionized (venous) 1.37 mmol/L (1.16-1.32); Chloride (VBG) 110 mmol/L (98-106); Hemoglobin (Hb) 10.1 g/dL (11.7-16.0); Potassium (VBG) 4.69 mmol/L (3.70-5.30); Puncture Site Other Site; RapidComm Collect By CBN; Sodium 137.5 mmol/L (133-146); pH (venous) 7.23 (7.32-7.43)
[2022-04-22 14:59] LABS: ALT (SGPT) 7 U/L (8-55); AST (SGOT) 11 U/L (5-34); Albumin 3.2 g/dL (3.4-4.8); Alkaline Phosphatase 69 U/L (40-110); Bilirubin, Direct 0.2 mg/dL (0.1-0.3); Bilirubin, Total 0.4 mg/dL (0.2-1.2); Protein, Total 6.2 g/dL (5.8-8.1)
[2022-04-22] MEDS ORDERED: Digoxin 0.5 MG/2 ML AMP ONE (15:37)
[2022-04-22] MEDS: Senokot S 8.6-50 MG TAB PO PRN (17:02)
[2022-04-22] MEDS: rOPINIRole HCl 1 MG TAB PO SCH (21:03)
[2022-04-23] MEDS: Sodium Chloride 0.9% 1,000 ML IV SCH ×4 (02:50→16:05)
[2022-04-23 06:56] LABS: #Eosinphils 0.4 10x3/uL (0.0-0.5); #Monocytes 0.6 10x3/uL (0.0-1.1); #Neutrophils 2.8 10x3/uL (1.5-8.4); %Basophils 0.6 % (0.0-2.0); %Eosinophils 7.5 % (0.0-6.0); %Lymphocytes 18.8 % (18.0-47.0); %Monocytes 13.4 % (0.0-10.0); %Neutrophils 59.3 % (40.0-75.0); Hemoglobin 9.1 g/dL (12.0-15.5); Mean Corpuscular HGB CONC 30.6 g/dL (32.0-36.0); Mean Corpuscular Hemoglobin 32.4 pg (27.0-33.0); Mean Corpuscular Volume 105.7 fl (81.6-98.3); Mean Platelet Volume 11.2 fl (7.4-10.4); Platelet Count 123 10x3/uL (150-450); RBC Distribution Width 17.6 % (11.5-14.5); Red Blood Cell (RBC) Count 2.81 10x6/uL (3.90-5.03); White Blood Cell (WBC) Count 4.6 10x3/uL (3.5-10.5)
[2022-04-23 07:08] LABS: Anion Gap 13 mmol/L (10-20); BUN (Urea Nitrogen) 34 mg/dL (9.8-20.1); Calc. Creatinine Clearance 36 mL/min (70-130); Calcium 10.2 mg/dL (7.8-10.44); Carbon Dioxide 20 mmol/L (23-31); Chloride 113 mmol/L (98-107); Estimated GFR 13; Glucose 80 mg/dL (80-115); Potassium 4.9 mmol/L (3.5-5.1); Sodium 141 mmol/L (136-145)
[2022-04-23] MEDS ORDERED: Digoxin 0.25 MG TAB PO SCH ×2 (09:00)
[2022-04-23] MEDS: Alogliptin 6.25 MG TAB PO SCH (09:52)
[2022-04-23] MEDS: Multivit, Therapeutic 1 TAB PO SCH (09:53)
[2022-04-23] MEDS: Aspirin Chewable 81 MG TAB PO SCH (09:53)
[2022-04-23] MEDS: Loratadine 10 MG TAB PO SCH (09:53)
[2022-04-23] MEDS: Ferrous Sulfate 325 MG TAB PO SCH ×2 (09:53→17:46)
[2022-04-23] MEDS: Enoxaparin Sodium 30 MG/0.3 ML SYRINGE SC SCH (09:53)
[2022-04-23] MEDS: Trospium 20 MG TAB PO SCH (09:54)
[2022-04-23] MEDS: Thiamine 100 MG TAB PO SCH (09:54)
[2022-04-23] MEDS ORDERED: Famotidine 20 MG TAB PO SCH (21:00)
[2022-04-23] MEDS: rOPINIRole HCl 1 MG TAB PO SCH (21:09)
[2022-04-23] MEDS: Apixaban 5 MG TAB PO SCH (21:10)
[2022-04-23] MEDS: Atorvastatin Calcium 10 MG TAB PO SCH (21:10)
[2022-04-24] MEDS: Sodium Chloride 0.9% 1,000 ML IV SCH ×3 (01:49→22:26)
[2022-04-24 07:49] LABS: Anion Gap 12 mmol/L (10-20); BUN (Urea Nitrogen) 34 mg/dL (9.8-20.1); Calc. Creatinine Clearance 39 mL/min (70-130); Calcium 10.3 mg/dL (7.8-10.44); Carbon Dioxide 19 mmol/L (23-31); Chloride 114 mmol/L (98-107); Estimated GFR 15; Glucose 80 mg/dL (80-115); Potassium 5.1 mmol/L (3.5-5.1); Sodium 140 mmol/L (136-145)
[2022-04-24 07:52] LABS: #Eosinphils 0.5 10x3/uL (0.0-0.5); #Monocytes 0.7 10x3/uL (0.0-1.1); #Neutrophils 3.2 10x3/uL (1.5-8.4); %Basophils 0.6 % (0.0-2.0); %Eosinophils 8.4 % (0.0-6.0); %Lymphocytes 17.2 % (18.0-47.0); %Monocytes 13.5 % (0.0-10.0); %Neutrophils 59.7 % (40.0-75.0); Hemoglobin 9.7 g/dL (12.0-15.5); Mean Corpuscular HGB CONC 30.5 g/dL (32.0-36.0); Mean Corpuscular Hemoglobin 32.6 pg (27.0-33.0); Mean Corpuscular Volume 106.7 fl (81.6-98.3); Mean Platelet Volume 11.1 fl (7.4-10.4); Platelet Count 140 10x3/uL (150-450); RBC Distribution Width 17.6 % (11.5-14.5); Red Blood Cell (RBC) Count 2.98 10x6/uL (3.90-5.03); White Blood Cell (WBC) Count 5.4 10x3/uL (3.5-10.5)
[2022-04-24] MEDS: Thiamine 100 MG TAB PO SCH (09:50)
[2022-04-24] MEDS: Multivit, Therapeutic 1 TAB PO SCH (09:50)
[2022-04-24] MEDS: Alogliptin 6.25 MG TAB PO SCH (09:50)
[2022-04-24] MEDS: Ferrous Sulfate 325 MG TAB PO SCH ×2 (09:50→15:59)
[2022-04-24] MEDS: Loratadine 10 MG TAB PO SCH (09:50)
[2022-04-24] MEDS: Aspirin Chewable 81 MG TAB PO SCH (09:50)
[2022-04-24] MEDS: Apixaban 5 MG TAB PO SCH ×2 (09:50→21:07)
[2022-04-24] MEDS: Trospium 20 MG TAB PO SCH (09:50)
[2022-04-24] MEDS: Famotidine 20 MG TAB PO SCH (21:07)
[2022-04-24] MEDS: Atorvastatin Calcium 10 MG TAB PO SCH (21:07)
[2022-04-24] MEDS: rOPINIRole HCl 1 MG TAB PO SCH (21:07)
[2022-04-25 05:12] LABS: #Eosinphils 0.5 10x3/uL (0.0-0.5); #Monocytes 0.7 10x3/uL (0.0-1.1); #Neutrophils 3.3 10x3/uL (1.5-8.4); %Basophils 0.7 % (0.0-2.0); %Eosinophils 8.6 % (0.0-6.0); %Lymphocytes 17.5 % (18.0-47.0); %Monocytes 12.9 % (0.0-10.0); %Neutrophils 59.8 % (40.0-75.0); Hemoglobin 9.2 g/dL (12.0-15.5); Mean Corpuscular HGB CONC 31.1 g/dL (32.0-36.0); Mean Corpuscular Hemoglobin 32.2 pg (27.0-33.0); Mean Corpuscular Volume 103.5 fl (81.6-98.3); Mean Platelet Volume 11.2 fl (7.4-10.4); Platelet Count 142 10x3/uL (150-450); RBC Distribution Width 17.2 % (11.5-14.5); Red Blood Cell (RBC) Count 2.86 10x6/uL (3.90-5.03); White Blood Cell (WBC) Count 5.5 10x3/uL (3.5-10.5)
[2022-04-25 05:23] LABS: Anion Gap 15 mmol/L (10-20); BUN (Urea Nitrogen) 34 mg/dL (9.8-20.1); Calc. Creatinine Clearance 40 mL/min (70-130); Calcium 10.4 mg/dL (7.8-10.44); Carbon Dioxide 17 mmol/L (23-31); Chloride 115 mmol/L (98-107); Estimated GFR 15; Glucose 83 mg/dL (80-115); Potassium 4.7 mmol/L (3.5-5.1); Sodium 142 mmol/L (136-145)
[2022-04-25] MEDS: Sodium Chloride 0.9% 1,000 ML IV SCH (05:29)
[2022-04-25 09:12] LABS: Iron 60 ug/dL (50-170); Iron Binding Capacity, Total 140 mcg/dL (265-497)
[2022-04-25] MEDS ORDERED: Sodium Bicarbonate Tab 325 MG TAB PO SCH (10:00)
[2022-04-25] MEDS: Ferrous Sulfate 325 MG TAB PO SCH ×2 (12:28→17:37)
[2022-04-25] MEDS: Trospium 20 MG TAB PO SCH (12:28)
[2022-04-25] MEDS: Aspirin Chewable 81 MG TAB PO SCH (12:29)
[2022-04-25] MEDS: Alogliptin 6.25 MG TAB PO SCH (12:29)
[2022-04-25] MEDS: Loratadine 10 MG TAB PO SCH (12:29)
[2022-04-25] MEDS: Multivit, Therapeutic 1 TAB PO SCH (12:30)
[2022-04-25] MEDS: Apixaban 5 MG TAB PO SCH ×2 (12:30→21:20)
[2022-04-25] MEDS: Thiamine 100 MG TAB PO SCH (12:30)
[2022-04-25] MEDS: Sodium Bicarbonate Tab 325 MG TAB PO SCH ×2 (17:36→21:20)
[2022-04-25 19:09] LABS: Bilirubin Neg (Negative); Blood, Urine 250 (Negative); Clarity Cloudy (Clear); Glucose, Urine (Dipstick) Normal (Negative); Ketone, Urine Negative (Negative); Leukocyte Negative (Negative); Nitrite Negative (Negative); Protein, Urine (Dipstick) 100 mg/dl (Neg-Trace); Urobilinogen Normal mg/dL (Less than 2)
[2022-04-25 19:31] LABS: Bacteria/HPF 4+ HPF (None Seen); Squamous Epithelial None Seen HPF (0-3)
[2022-04-25 19:43] LABS: Creatinine, Urine 40.33 mg/dL (47-110)
[2022-04-25] MEDS: rOPINIRole HCl 1 MG TAB PO SCH (21:20)
[2022-04-25] MEDS: Atorvastatin Calcium 10 MG TAB PO SCH (21:20)
[2022-04-25] MEDS: Famotidine 20 MG TAB PO SCH (21:21)
[2022-04-26 06:59] LABS: Albumin 3.3 g/dL (3.4-4.8); Anion Gap 14 mmol/L (10-20); BUN (Urea Nitrogen) 35 mg/dL (9.8-20.1); BUN/Creatinine Ratio 11.22; Calc. Creatinine Clearance 42 mL/min (70-130); Calcium 10.9 mg/dL (7.8-10.44); Carbon Dioxide 19 mmol/L (23-31); Chloride 114 mmol/L (98-107); Estimated GFR 16; Glucose 86 mg/dL (80-115); Phosphorus 3.9 mg/dL (2.3-4.7); Potassium 4.5 mmol/L (3.5-5.1); Sodium 142 mmol/L (136-145)
[2022-04-26 07:26] LABS: #Basophils 0.1 10x3/uL (0.0-0.2); #Eosinphils 0.4 10x3/uL (0.0-0.5); #Monocytes 0.9 10x3/uL (0.0-1.1); #Neutrophils 3.6 10x3/uL (1.5-8.4); %Basophils 1.2 % (0.0-2.0); %Eosinophils 7.4 % (0.0-6.0); %Lymphocytes 15.2 % (18.0-47.0); %Monocytes 14.5 % (0.0-10.0); %Neutrophils 61.2 % (40.0-75.0); Hemoglobin 9.4 g/dL (12.0-15.5); Mean Corpuscular HGB CONC 31.2 g/dL (32.0-36.0); Mean Corpuscular Hemoglobin 32.2 pg (27.0-33.0); Mean Corpuscular Volume 103.1 fl (81.6-98.3); Mean Platelet Volume 11.1 fl (7.4-10.4); Platelet Count 147 10x3/uL (150-450); RBC Distribution Width 17.2 % (11.5-14.5); Red Blood Cell (RBC) Count 2.92 10x6/uL (3.90-5.03); White Blood Cell (WBC) Count 5.9 10x3/uL (3.5-10.5)
[2022-04-26] MEDS: Loratadine 10 MG TAB PO SCH (13:05)
[2022-04-26] MEDS: Apixaban 5 MG TAB PO SCH ×2 (13:05→23:25)
[2022-04-26] MEDS: Ferrous Sulfate 325 MG TAB PO SCH ×2 (13:05→18:39)
[2022-04-26] MEDS: Alogliptin 6.25 MG TAB PO SCH (13:05)
[2022-04-26] MEDS: Sodium Bicarbonate Tab 325 MG TAB PO SCH ×3 (13:06→23:25)
[2022-04-26] MEDS: Aspirin Chewable 81 MG TAB PO SCH (13:06)
[2022-04-26] MEDS: Multivit, Therapeutic 1 TAB PO SCH (13:06)
[2022-04-26] MEDS: Thiamine 100 MG TAB PO SCH (13:12)
[2022-04-26] MEDS: Trospium 20 MG TAB PO SCH (13:12)
[2022-04-26] MEDS: rOPINIRole HCl 1 MG TAB PO SCH (23:25)
[2022-04-26] MEDS: Famotidine 20 MG TAB PO SCH (23:25)
[2022-04-26] MEDS: Atorvastatin Calcium 10 MG TAB PO SCH (23:25)
[2022-04-27 05:54] LABS: Albumin 3.2 g/dL (3.4-4.8); Anion Gap 13 mmol/L (10-20); BUN (Urea Nitrogen) 35 mg/dL (9.8-20.1); BUN/Creatinine Ratio 11.36; Calc. Creatinine Clearance 42 mL/min (70-130); Calcium 10.9 mg/dL (7.8-10.44); Carbon Dioxide 21 mmol/L (23-31); Chloride 116 mmol/L (98-107); Estimated GFR 16; Glucose 83 mg/dL (80-115); Phosphorus 3.7 mg/dL (2.3-4.7); Potassium 4.7 mmol/L (3.5-5.1); Sodium 145 mmol/L (136-145)
[2022-04-27] MEDS: Ferrous Sulfate 325 MG TAB PO SCH ×2 (08:28→16:34)
[2022-04-27] MEDS: Thiamine 100 MG TAB PO SCH (08:28)
[2022-04-27] MEDS: Loratadine 10 MG TAB PO SCH (08:28)
[2022-04-27] MEDS: Multivit, Therapeutic 1 TAB PO SCH (08:28)
[2022-04-27] MEDS: Apixaban 5 MG TAB PO SCH ×2 (08:29→22:57)
[2022-04-27] MEDS: Sodium Bicarbonate Tab 325 MG TAB PO SCH ×3 (08:29→22:57)
[2022-04-27] MEDS: Aspirin Chewable 81 MG TAB PO SCH (08:29)
[2022-04-27] MEDS: Trospium 20 MG TAB PO SCH (08:29)
[2022-04-27] MEDS: Alogliptin 6.25 MG TAB PO SCH (08:30)
[2022-04-27] MEDS: rOPINIRole HCl 1 MG TAB PO SCH (22:56)
[2022-04-27] MEDS: Famotidine 20 MG TAB PO SCH (22:56)
[2022-04-27] MEDS: Atorvastatin Calcium 10 MG TAB PO SCH (22:57)
[2022-04-28 06:03] LABS: Hemoglobin 9.2 g/dL (12.0-15.5); Mean Corpuscular HGB CONC 31.2 g/dL (32.0-36.0); Mean Corpuscular Hemoglobin 32.1 pg (27.0-33.0); Mean Corpuscular Volume 102.8 fl (81.6-98.3); Mean Platelet Volume 11.3 fl (7.4-10.4); Platelet Count 137 10x3/uL (150-450); RBC Distribution Width 17.6 % (11.5-14.5); Red Blood Cell (RBC) Count 2.87 10x6/uL (3.90-5.03); White Blood Cell (WBC) Count 5.7 10x3/uL (3.5-10.5)
[2022-04-28 06:17] LABS: Anion Gap 14 mmol/L (10-20); BUN (Urea Nitrogen) 34 mg/dL (9.8-20.1); Calc. Creatinine Clearance 45 mL/min (70-130); Calcium 10.8 mg/dL (7.8-10.44); Carbon Dioxide 21 mmol/L (23-31); Chloride 114 mmol/L (98-107); Estimated GFR 18; Glucose 81 mg/dL (80-115); Potassium 4.5 mmol/L (3.5-5.1); Sodium 144 mmol/L (136-145)
[2022-04-28 07:13] LABS: #Basophils 0.1 10x3/uL (0.0-0.2); #Eosinphils 0.4 10x3/uL (0.0-0.5); #Monocytes 0.8 10x3/uL (0.0-1.1); #Neutrophils 3.4 10x3/uL (1.5-8.4); %Basophils 0.9 % (0.0-2.0); %Lymphocytes 17.9 % (18.0-47.0); %Monocytes 13.7 % (0.0-10.0); %Neutrophils 59.8 % (40.0-75.0)
[2022-04-28] MEDS: Alogliptin 6.25 MG TAB PO SCH (08:12)
[2022-04-28] MEDS: Ferrous Sulfate 325 MG TAB PO SCH ×2 (08:12→17:17)
[2022-04-28] MEDS: Apixaban 5 MG TAB PO SCH ×2 (08:12→21:50)
[2022-04-28] MEDS: Multivit, Therapeutic 1 TAB PO SCH (08:12)
[2022-04-28] MEDS: Loratadine 10 MG TAB PO SCH (08:12)
[2022-04-28] MEDS: Thiamine 100 MG TAB PO SCH (08:13)
[2022-04-28] MEDS: Sodium Bicarbonate Tab 325 MG TAB PO SCH ×3 (08:13→22:00)
[2022-04-28] MEDS: Trospium 20 MG TAB PO SCH (08:13)
[2022-04-28] MEDS: rOPINIRole HCl 1 MG TAB PO SCH (21:48)
[2022-04-28] MEDS: Famotidine 20 MG TAB PO SCH (21:49)
[2022-04-28] MEDS: Atorvastatin Calcium 10 MG TAB PO SCH (21:50)
[2022-04-29 06:24] LABS: #Eosinphils 0.4 10x3/uL (0.0-0.5); #Monocytes 0.7 10x3/uL (0.0-1.1); #Neutrophils 3.3 10x3/uL (1.5-8.4); %Basophils 0.7 % (0.0-2.0); %Eosinophils 7.9 % (0.0-6.0); %Lymphocytes 18.2 % (18.0-47.0); %Monocytes 12.8 % (0.0-10.0); %Neutrophils 59.9 % (40.0-75.0); Hemoglobin 9.1 g/dL (12.0-15.5); Mean Corpuscular Volume 103.5 fl (81.6-98.3); Mean Platelet Volume 10.7 fl (7.4-10.4); Platelet Count 144 10x3/uL (150-450); RBC Distribution Width 17.4 % (11.5-14.5); Red Blood Cell (RBC) Count 2.84 10x6/uL (3.90-5.03); White Blood Cell (WBC) Count 5.6 10x3/uL (3.5-10.5)
[2022-04-29 06:34] LABS: Anion Gap 12 mmol/L (10-20); BUN (Urea Nitrogen) 32 mg/dL (9.8-20.1); Calc. Creatinine Clearance 49 mL/min (70-130); Calcium 10.4 mg/dL (7.8-10.44); Carbon Dioxide 21 mmol/L (23-31); Chloride 115 mmol/L (98-107); Estimated GFR 19; Glucose 79 mg/dL (80-115); Potassium 4.4 mmol/L (3.5-5.1); Sodium 144 mmol/L (136-145)
[2022-04-29] MEDS: Apixaban 5 MG TAB PO SCH ×2 (08:12→21:36)
[2022-04-29] MEDS: Trospium 20 MG TAB PO SCH (08:12)
[2022-04-29] MEDS: Thiamine 100 MG TAB PO SCH (08:12)
[2022-04-29] MEDS: Multivit, Therapeutic 1 TAB PO SCH (08:12)
[2022-04-29] MEDS: Alogliptin 6.25 MG TAB PO SCH (08:12)
[2022-04-29] MEDS: Ferrous Sulfate 325 MG TAB PO SCH ×2 (08:13→17:18)
[2022-04-29] MEDS: Loratadine 10 MG TAB PO SCH (08:13)
[2022-04-29] MEDS: Sodium Bicarbonate Tab 325 MG TAB PO SCH ×3 (08:13→21:37)
[2022-04-29 08:26] LABS: Hypochromia SLIGHT = 6-15 cells (100X) (0-5/hpf); Macrocytosis SLIGHT = 6-15 cells (100X) (0-5/hpf)
[2022-04-29 08:28] LABS: Large Platelets SLIGHT; Platelet Morphology Comment Appears Adequate
[2022-04-29] MEDS: EPOETIN ALFA-EPBX (ESRD) 4,000 UNIT/ML VIAL SC SCH (13:10)
[2022-04-29] MEDS: Atorvastatin Calcium 10 MG TAB PO SCH (21:36)
[2022-04-29] MEDS: Famotidine 20 MG TAB PO SCH (21:36)
[2022-04-29] MEDS: rOPINIRole HCl 1 MG TAB PO SCH (21:37)
[2022-04-30 05:12] LABS: Anion Gap 12 mmol/L (10-20); BUN (Urea Nitrogen) 30 mg/dL (9.8-20.1); Calc. Creatinine Clearance 64 mL/min (70-130); Calcium 10.6 mg/dL (7.8-10.44); Carbon Dioxide 22 mmol/L (23-31); Chloride 113 mmol/L (98-107); Estimated GFR 21; Glucose 78 mg/dL (80-115); Potassium 4.3 mmol/L (3.5-5.1); Sodium 143 mmol/L (136-145)
[2022-04-30] MEDS ORDERED: Furosemide 40 MG/4 ML VIAL SLOW IVP SCH (08:00)
[2022-04-30] MEDS: Sodium Bicarbonate Tab 325 MG TAB PO SCH ×3 (10:16→21:18)
[2022-04-30] MEDS: Trospium 20 MG TAB PO SCH (10:17)
[2022-04-30] MEDS: Multivit, Therapeutic 1 TAB PO SCH (10:17)
[2022-04-30] MEDS: Ferrous Sulfate 325 MG TAB PO SCH ×2 (10:17→19:45)
[2022-04-30] MEDS: Loratadine 10 MG TAB PO SCH (10:18)
[2022-04-30] MEDS: Apixaban 5 MG TAB PO SCH ×2 (10:18→21:18)
[2022-04-30] MEDS: Thiamine 100 MG TAB PO SCH (10:18)
[2022-04-30] MEDS: Alogliptin 6.25 MG TAB PO SCH (10:18)
[2022-04-30] MEDS ORDERED: Furosemide 40 MG TAB PO SCH (11:00)
[2022-04-30] MEDS: Famotidine 20 MG TAB PO SCH (21:17)
[2022-04-30] MEDS: rOPINIRole HCl 1 MG TAB PO SCH (21:18)
[2022-04-30] MEDS: Atorvastatin Calcium 10 MG TAB PO SCH (21:18)
[2022-04-30] MEDS ORDERED: Cepastat Lozenges 1 LOZ PO SCH (22:45)
[2022-05-01 04:38] LABS: Anion Gap 12 mmol/L (10-20); BUN (Urea Nitrogen) 29 mg/dL (9.8-20.1); Calc. Creatinine Clearance 63 mL/min (70-130); Calcium 10.4 mg/dL (7.8-10.44); Carbon Dioxide 23 mmol/L (23-31); Chloride 113 mmol/L (98-107); Estimated GFR 21; Glucose 72 mg/dL (80-115); Potassium 4.2 mmol/L (3.5-5.1); Sodium 144 mmol/L (136-145)
[2022-05-01 04:52] LABS: #Eosinphils 0.2 10x3/uL (0.0-0.5); #Monocytes 0.6 10x3/uL (0.0-1.1); #Neutrophils 2.6 10x3/uL (1.5-8.4); %Basophils 0.7 % (0.0-2.0); %Eosinophils 5.3 % (0.0-6.0); %Lymphocytes 22.6 % (18.0-47.0); Hemoglobin 8.8 g/dL (12.0-15.5); Mean Corpuscular HGB CONC 31.7 g/dL (32.0-36.0); Mean Corpuscular Hemoglobin 32.5 pg (27.0-33.0); Mean Corpuscular Volume 102.6 fl (81.6-98.3); Mean Platelet Volume 11.1 fl (7.4-10.4); Platelet Count 130 10x3/uL (150-450); RBC Distribution Width 17.8 % (11.5-14.5); Red Blood Cell (RBC) Count 2.71 10x6/uL (3.90-5.03); White Blood Cell (WBC) Count 4.5 10x3/uL (3.5-10.5)
[2022-05-01] MEDS: Alogliptin 6.25 MG TAB PO SCH (10:20)
[2022-05-01] MEDS: Sodium Bicarbonate Tab 325 MG TAB PO SCH ×3 (10:20→20:36)
[2022-05-01] MEDS: Apixaban 5 MG TAB PO SCH ×2 (10:21→20:35)
[2022-05-01] MEDS: Trospium 20 MG TAB PO SCH (10:21)
[2022-05-01] MEDS: Loratadine 10 MG TAB PO SCH (10:21)
[2022-05-01] MEDS: Thiamine 100 MG TAB PO SCH (10:21)
[2022-05-01] MEDS: Ferrous Sulfate 325 MG TAB PO SCH ×2 (10:21→15:39)
[2022-05-01] MEDS: Multivit, Therapeutic 1 TAB PO SCH (10:21)
[2022-05-01] MEDS: Famotidine 20 MG TAB PO SCH (20:35)
[2022-05-01] MEDS: Atorvastatin Calcium 10 MG TAB PO SCH (20:35)
[2022-05-01] MEDS: rOPINIRole HCl 1 MG TAB PO SCH (20:36)
[2022-05-02 04:34] LABS: #Eosinphils 0.3 10x3/uL (0.0-0.5); #Monocytes 0.7 10x3/uL (0.0-1.1); #Neutrophils 2.9 10x3/uL (1.5-8.4); %Basophils 0.6 % (0.0-2.0); %Eosinophils 5.3 % (0.0-6.0); %Lymphocytes 21.5 % (18.0-47.0); %Monocytes 13.3 % (0.0-10.0); %Neutrophils 58.7 % (40.0-75.0); Anion Gap 13 mmol/L (10-20); BUN (Urea Nitrogen) 28 mg/dL (9.8-20.1); Calc. Creatinine Clearance 66 mL/min (70-130); Calcium 10.3 mg/dL (7.8-10.44); Carbon Dioxide 23 mmol/L (23-31); Chloride 111 mmol/L (98-107); Estimated GFR 23; Glucose 76 mg/dL (80-115); Hemoglobin 8.8 g/dL (12.0-15.5); Mean Corpuscular HGB CONC 31.3 g/dL (32.0-36.0); Mean Corpuscular Volume 102.2 fl (81.6-98.3); Mean Platelet Volume 11.3 fl (7.4-10.4); Platelet Count 127 10x3/uL (150-450); RBC Distribution Width 17.6 % (11.5-14.5); Red Blood Cell (RBC) Count 2.75 10x6/uL (3.90-5.03); Sodium 143 mmol/L (136-145); White Blood Cell (WBC) Count 4.9 10x3/uL (3.5-10.5)
[2022-05-02] MEDS: Multivit, Therapeutic 1 TAB PO SCH (09:06)
[2022-05-02] MEDS: Loratadine 10 MG TAB PO SCH (09:06)
[2022-05-02] MEDS: Sodium Bicarbonate Tab 325 MG TAB PO SCH ×3 (09:06→20:46)
[2022-05-02] MEDS: Ferrous Sulfate 325 MG TAB PO SCH ×2 (09:06→17:45)
[2022-05-02] MEDS: Furosemide 40 MG TAB PO SCH (09:07)
[2022-05-02] MEDS: Thiamine 100 MG TAB PO SCH (09:07)
[2022-05-02] MEDS: Apixaban 5 MG TAB PO SCH ×2 (09:07→20:46)
[2022-05-02] MEDS: Alogliptin 6.25 MG TAB PO SCH (09:07)
[2022-05-02] MEDS: Trospium 20 MG TAB PO SCH (09:07)
[2022-05-02] MEDS ORDERED: predniSONE 20 MG TAB PO SCH (13:00)
[2022-05-02] MEDS: rOPINIRole HCl 1 MG TAB PO SCH (20:46)
[2022-05-02] MEDS: Famotidine 20 MG TAB PO SCH (20:46)
[2022-05-02] MEDS: Benzonatate 100 MG CAP PO PRN (20:46)
[2022-05-02] MEDS: Cepastat Lozenges 1 LOZ PO PRN (20:46)
[2022-05-02] MEDS: Atorvastatin Calcium 10 MG TAB PO SCH (20:46)
[2022-05-03] MEDS: traZODone HCl 50 MG TAB PO PRN ×2 (00:15→22:55)
[2022-05-03 04:16] LABS: #Monocytes 0.2 10x3/uL (0.0-1.1); #Neutrophils 2.8 10x3/uL (1.5-8.4); %Basophils 0.3 % (0.0-2.0); %Lymphocytes 13.5 % (18.0-47.0); %Monocytes 5.9 % (0.0-10.0); %Neutrophils 78.9 % (40.0-75.0); Hemoglobin 9.6 g/dL (12.0-15.5); Mean Corpuscular HGB CONC 31.8 g/dL (32.0-36.0); Mean Corpuscular Hemoglobin 32.4 pg (27.0-33.0); Mean Platelet Volume 11.3 fl (7.4-10.4); Platelet Count 127 10x3/uL (150-450); RBC Distribution Width 17.3 % (11.5-14.5); Red Blood Cell (RBC) Count 2.96 10x6/uL (3.90-5.03); White Blood Cell (WBC) Count 3.6 10x3/uL (3.5-10.5)
[2022-05-03 05:00] LABS: Anion Gap 13 mmol/L (10-20); BUN (Urea Nitrogen) 25 mg/dL (9.8-20.1); Calc. Creatinine Clearance 73 mL/min (70-130); Calcium 10.6 mg/dL (7.8-10.44); Carbon Dioxide 25 mmol/L (23-31); Chloride 109 mmol/L (98-107); Estimated GFR 25; Glucose 111 mg/dL (80-115); Potassium 4.1 mmol/L (3.5-5.1); Sodium 143 mmol/L (136-145)
[2022-05-03] MEDS: Alogliptin 6.25 MG TAB PO SCH (08:29)
[2022-05-03] MEDS: Sodium Bicarbonate Tab 325 MG TAB PO SCH ×3 (08:30→20:13)
[2022-05-03] MEDS: Trospium 20 MG TAB PO SCH (08:30)
[2022-05-03] MEDS: Multivit, Therapeutic 1 TAB PO SCH (08:30)
[2022-05-03] MEDS: Furosemide 40 MG TAB PO SCH (08:30)
[2022-05-03] MEDS: Thiamine 100 MG TAB PO SCH (08:30)
[2022-05-03] MEDS: Apixaban 5 MG TAB PO SCH ×2 (08:30→20:13)
[2022-05-03] MEDS: Loratadine 10 MG TAB PO SCH (08:31)
[2022-05-03] MEDS: Ferrous Sulfate 325 MG TAB PO SCH ×2 (08:31→16:24)
[2022-05-03] MEDS: Benzonatate 100 MG CAP PO PRN (16:27)
[2022-05-03] MEDS: Atorvastatin Calcium 10 MG TAB PO SCH (20:13)
[2022-05-03] MEDS: rOPINIRole HCl 1 MG TAB PO SCH (20:13)
[2022-05-03] MEDS: Famotidine 20 MG TAB PO SCH (20:13)
[2022-05-03] MEDS: Acetaminophen 325 MG TAB PO PRN (22:55)
[2022-05-04 04:28] LABS: Anion Gap 12 mmol/L (10-20); BUN (Urea Nitrogen) 22 mg/dL (9.8-20.1); Calc. Creatinine Clearance 77 mL/min (70-130); Calcium 10.3 mg/dL (7.8-10.44); Carbon Dioxide 27 mmol/L (23-31); Chloride 107 mmol/L (98-107); Estimated GFR 26; Glucose 80 mg/dL (80-115); Potassium 3.5 mmol/L (3.5-5.1); Sodium 142 mmol/L (136-145)
[2022-05-04 04:29] LABS: #Eosinphils 0.3 10x3/uL (0.0-0.5); #Monocytes 0.6 10x3/uL (0.0-1.1); #Neutrophils 2.9 10x3/uL (1.5-8.4); %Basophils 0.8 % (0.0-2.0); %Eosinophils 5.4 % (0.0-6.0); %Lymphocytes 20.5 % (18.0-47.0); %Monocytes 11.8 % (0.0-10.0); %Neutrophils 60.7 % (40.0-75.0); Hemoglobin 8.5 g/dL (12.0-15.5); Mean Corpuscular HGB CONC 31.7 g/dL (32.0-36.0); Mean Corpuscular Hemoglobin 32.4 pg (27.0-33.0); Mean Corpuscular Volume 102.3 fl (81.6-98.3); Mean Platelet Volume 11.3 fl (7.4-10.4); Platelet Count 119 10x3/uL (150-450); RBC Distribution Width 17.6 % (11.5-14.5); Red Blood Cell (RBC) Count 2.62 10x6/uL (3.90-5.03); White Blood Cell (WBC) Count 4.8 10x3/uL (3.5-10.5)
[2022-05-04 05:09] LABS: Anisocytosis SLIGHT = 6-15 cells (100X) (0-5/hpf); Ovalocytes SLIGHT = 2-5 cells (100X) (0-1/hpf); Platelet Morphology Comment Appears Decreased; Polychromasia SLIGHT = 2-3 cells (100X) (0-2/hpf)
[2022-05-04] MEDS: Sodium Bicarbonate Tab 325 MG TAB PO SCH ×3 (09:22→21:19)
[2022-05-04] MEDS: Trospium 20 MG TAB PO SCH (09:22)
[2022-05-04] MEDS: Ferrous Sulfate 325 MG TAB PO SCH ×2 (09:22→17:40)
[2022-05-04] MEDS: Thiamine 100 MG TAB PO SCH (09:22)
[2022-05-04] MEDS: Multivit, Therapeutic 1 TAB PO SCH (09:22)
[2022-05-04] MEDS: Loratadine 10 MG TAB PO SCH (09:22)
[2022-05-04] MEDS: Furosemide 40 MG TAB PO SCH (09:22)
[2022-05-04] MEDS: Apixaban 5 MG TAB PO SCH ×2 (09:22→21:19)
[2022-05-04] MEDS: Alogliptin 6.25 MG TAB PO SCH (09:23)
[2022-05-04] MEDS: Famotidine 20 MG TAB PO SCH (21:18)
[2022-05-04] MEDS: Atorvastatin Calcium 10 MG TAB PO SCH (21:19)
[2022-05-04] MEDS: rOPINIRole HCl 1 MG TAB PO SCH (21:19)
[2022-05-05 04:20] LABS: Anion Gap 9 mmol/L (10-20); BUN (Urea Nitrogen) 21 mg/dL (9.8-20.1); Calc. Creatinine Clearance 78 mL/min (70-130); Calcium 10.4 mg/dL (7.8-10.44); Carbon Dioxide 29 mmol/L (23-31); Chloride 106 mmol/L (98-107); Estimated GFR 27; Glucose 82 mg/dL (80-115); Potassium 3.4 mmol/L (3.5-5.1); Sodium 141 mmol/L (136-145)
[2022-05-05 04:32] LABS: #Eosinphils 0.4 10x3/uL (0.0-0.5); #Monocytes 0.6 10x3/uL (0.0-1.1); #Neutrophils 4.1 10x3/uL (1.5-8.4); %Basophils 0.6 % (0.0-2.0); %Lymphocytes 20.5 % (18.0-47.0); %Monocytes 9.8 % (0.0-10.0); %Neutrophils 62.5 % (40.0-75.0); Hemoglobin 9.6 g/dL (12.0-15.5); Mean Corpuscular Hemoglobin 32.2 pg (27.0-33.0); Mean Corpuscular Volume 100.7 fl (81.6-98.3); Mean Platelet Volume 11.3 fl (7.4-10.4); Platelet Count 131 10x3/uL (150-450); RBC Distribution Width 17.8 % (11.5-14.5); Red Blood Cell (RBC) Count 2.98 10x6/uL (3.90-5.03); White Blood Cell (WBC) Count 6.5 10x3/uL (3.5-10.5)
[2022-05-05] MEDS: Thiamine 100 MG TAB PO SCH (09:56)
[2022-05-05] MEDS: Ferrous Sulfate 325 MG TAB PO SCH ×2 (09:56→17:47)
[2022-05-05] MEDS: Trospium 20 MG TAB PO SCH (09:56)
[2022-05-05] MEDS: Multivit, Therapeutic 1 TAB PO SCH (09:56)
[2022-05-05] MEDS: Apixaban 5 MG TAB PO SCH ×2 (09:56→20:14)
[2022-05-05] MEDS: Sodium Bicarbonate Tab 325 MG TAB PO SCH ×3 (09:56→20:13)
[2022-05-05] MEDS: Alogliptin 6.25 MG TAB PO SCH (09:56)
[2022-05-05] MEDS: Loratadine 10 MG TAB PO SCH (09:57)
[2022-05-05] MEDS: Furosemide 40 MG TAB PO SCH (09:59)
[2022-05-05] MEDS: rOPINIRole HCl 1 MG TAB PO SCH (20:13)
[2022-05-05] MEDS: Famotidine 20 MG TAB PO SCH (20:13)
[2022-05-05] MEDS: Atorvastatin Calcium 10 MG TAB PO SCH (20:14)
[2022-05-06] MEDS: Sodium Bicarbonate Tab 325 MG TAB PO SCH ×3 (09:41→20:27)
[2022-05-06] MEDS: Ferrous Sulfate 325 MG TAB PO SCH ×2 (09:42→16:05)
[2022-05-06] MEDS: Thiamine 100 MG TAB PO SCH (09:42)
[2022-05-06] MEDS: Apixaban 5 MG TAB PO SCH ×2 (09:42→20:27)
[2022-05-06] MEDS: Trospium 20 MG TAB PO SCH (09:42)
[2022-05-06] MEDS: Alogliptin 6.25 MG TAB PO SCH (09:42)
[2022-05-06] MEDS: Furosemide 40 MG TAB PO SCH (09:43)
[2022-05-06] MEDS: Multivit, Therapeutic 1 TAB PO SCH (09:43)
[2022-05-06] MEDS: Loratadine 10 MG TAB PO SCH (09:43)
[2022-05-06] MEDS: Benzonatate 100 MG CAP PO PRN (09:54)
[2022-05-06] MEDS: Acetaminophen 325 MG TAB PO PRN (09:54)
[2022-05-06] MEDS: EPOETIN ALFA-EPBX (ESRD) 4,000 UNIT/ML VIAL SC SCH (15:10)
[2022-05-06] MEDS: Atorvastatin Calcium 10 MG TAB PO SCH (20:27)
[2022-05-06] MEDS: rOPINIRole HCl 1 MG TAB PO SCH (20:27)
[2022-05-06] MEDS: Famotidine 20 MG TAB PO SCH (20:27)
[2022-05-06] MEDS ORDERED: Promethazine 25 MG TAB PO SCH (22:15)
[2022-05-06] MEDS: Cepastat Lozenges 1 LOZ PO PRN (22:28)
[2022-05-07] MEDS: Cepastat Lozenges 1 LOZ PO PRN (03:31)
[2022-05-07] MEDS ORDERED: Ondansetron ODT 8 MG TAB SL SCH (04:45)
[2022-05-07 06:53] LABS: Anion Gap 14 mmol/L (10-20); BUN (Urea Nitrogen) 19 mg/dL (9.8-20.1); Calc. Creatinine Clearance 81 mL/min (70-130); Carbon Dioxide 29 mmol/L (23-31); Chloride 103 mmol/L (98-107); Estimated GFR 31; Glucose 81 mg/dL (80-115); Potassium 3.5 mmol/L (3.5-5.1); Sodium 142 mmol/L (136-145)
[2022-05-07] MEDS: Apixaban 5 MG TAB PO SCH ×2 (09:10→22:10)
[2022-05-07] MEDS: Trospium 20 MG TAB PO SCH (09:10)
[2022-05-07] MEDS: Sodium Bicarbonate Tab 325 MG TAB PO SCH ×3 (09:10→22:09)
[2022-05-07] MEDS: Loratadine 10 MG TAB PO SCH (09:10)
[2022-05-07] MEDS: Alogliptin 6.25 MG TAB PO SCH (09:10)
[2022-05-07] MEDS: Benzonatate 100 MG CAP PO PRN (09:11)
[2022-05-07] MEDS: Ferrous Sulfate 325 MG TAB PO SCH ×2 (09:11→16:26)
[2022-05-07] MEDS: Furosemide 40 MG TAB PO SCH (09:11)
[2022-05-07] MEDS: Multivit, Therapeutic 1 TAB PO SCH (09:11)
[2022-05-07] MEDS: Thiamine 100 MG TAB PO SCH (09:11)
[2022-05-07] MEDS: rOPINIRole HCl 1 MG TAB PO SCH (22:10)
[2022-05-07] MEDS: Atorvastatin Calcium 10 MG TAB PO SCH (22:10)
[2022-05-07] MEDS: Famotidine 20 MG TAB PO SCH (22:13)
[2022-05-08] MEDS: Sodium Bicarbonate Tab 325 MG TAB PO SCH ×3 (09:36→20:28)
[2022-05-08] MEDS: Ferrous Sulfate 325 MG TAB PO SCH ×2 (09:36→17:08)
[2022-05-08] MEDS: Furosemide 40 MG TAB PO SCH (09:36)
[2022-05-08] MEDS: Thiamine 100 MG TAB PO SCH (09:37)
[2022-05-08] MEDS: Loratadine 10 MG TAB PO SCH (09:37)
[2022-05-08] MEDS: Alogliptin 6.25 MG TAB PO SCH (09:37)
[2022-05-08] MEDS: Apixaban 5 MG TAB PO SCH ×2 (09:37→20:29)
[2022-05-08] MEDS: Multivit, Therapeutic 1 TAB PO SCH (09:37)
[2022-05-08] MEDS: Trospium 20 MG TAB PO SCH (09:37)
[2022-05-08] MEDS: Atorvastatin Calcium 10 MG TAB PO SCH (20:28)
[2022-05-08] MEDS: Famotidine 20 MG TAB PO SCH (20:29)
[2022-05-08] MEDS: rOPINIRole HCl 1 MG TAB PO SCH (20:29)
[2022-05-08] MEDS ORDERED: Ondansetron PF 4 MG/2 ML Vial IVP PRN (23:03)
[2022-05-09] MEDS: Sodium Bicarbonate Tab 325 MG TAB PO SCH ×3 (09:20→20:28)
[2022-05-09] MEDS: Ferrous Sulfate 325 MG TAB PO SCH ×2 (09:21→17:46)
[2022-05-09] MEDS: Multivit, Therapeutic 1 TAB PO SCH (09:21)
[2022-05-09] MEDS: Loratadine 10 MG TAB PO SCH (09:21)
[2022-05-09] MEDS: Thiamine 100 MG TAB PO SCH (09:21)
[2022-05-09] MEDS: Apixaban 5 MG TAB PO SCH ×2 (09:21→20:29)
[2022-05-09] MEDS: Alogliptin 6.25 MG TAB PO SCH (09:21)
[2022-05-09] MEDS: Furosemide 40 MG TAB PO SCH (09:22)
[2022-05-09] MEDS: Trospium 20 MG TAB PO SCH (17:46)
[2022-05-09] MEDS: rOPINIRole HCl 1 MG TAB PO SCH (20:28)
[2022-05-09] MEDS: Famotidine 20 MG TAB PO SCH (20:29)
[2022-05-09] MEDS: Atorvastatin Calcium 10 MG TAB PO SCH (20:29)
[2022-05-10 06:01] LABS: Anion Gap 11 mmol/L (10-20); BUN (Urea Nitrogen) 15 mg/dL (9.8-20.1); Calc. Creatinine Clearance 84 mL/min (70-130); Calcium 9.9 mg/dL (7.8-10.44); Carbon Dioxide 33 mmol/L (23-31); Chloride 99 mmol/L (98-107); Estimated GFR 33; Glucose 81 mg/dL (80-115); Potassium 2.9 mmol/L (3.5-5.1); Sodium 140 mmol/L (136-145)
[2022-05-10 06:27] LABS: #Eosinphils 0.4 10x3/uL (0.0-0.5); #Monocytes 0.8 10x3/uL (0.0-1.1); %Basophils 0.8 % (0.0-2.0); %Lymphocytes 18.8 % (18.0-47.0); %Monocytes 15.1 % (0.0-10.0); %Neutrophils 57.9 % (40.0-75.0); Hemoglobin 9.4 g/dL (12.0-15.5); Mean Corpuscular HGB CONC 31.6 g/dL (32.0-36.0); Mean Corpuscular Hemoglobin 32.1 pg (27.0-33.0); Mean Corpuscular Volume 101.4 fl (81.6-98.3); Mean Platelet Volume 11.4 fl (7.4-10.4); Platelet Count 130 10x3/uL (150-450); RBC Distribution Width 17.2 % (11.5-14.5); Red Blood Cell (RBC) Count 2.93 10x6/uL (3.90-5.03); White Blood Cell (WBC) Count 5.2 10x3/uL (3.5-10.5)
[2022-05-10] MEDS: Ferrous Sulfate 325 MG TAB PO SCH ×2 (07:59→17:04)
[2022-05-10] MEDS: Alogliptin 6.25 MG TAB PO SCH (07:59)
[2022-05-10] MEDS: Multivit, Therapeutic 1 TAB PO SCH (07:59)
[2022-05-10] MEDS: Sodium Bicarbonate Tab 325 MG TAB PO SCH ×3 (07:59→20:18)
[2022-05-10] MEDS: Trospium 20 MG TAB PO SCH (07:59)
[2022-05-10] MEDS: Furosemide 40 MG TAB PO SCH (08:00)
[2022-05-10] MEDS: Apixaban 5 MG TAB PO SCH ×2 (08:00→20:19)
[2022-05-10] MEDS: Thiamine 100 MG TAB PO SCH (08:00)
[2022-05-10] MEDS: Loratadine 10 MG TAB PO SCH (08:00)
[2022-05-10] MEDS ORDERED: Potassium Chloride 20 MEQ TAB PO SCH (09:00)
[2022-05-10] MEDS: Benzonatate 100 MG CAP PO PRN (12:03)
[2022-05-10] MEDS: rOPINIRole HCl 1 MG TAB PO SCH (20:18)
[2022-05-10] MEDS: Atorvastatin Calcium 10 MG TAB PO SCH (20:19)
[2022-05-10] MEDS: Famotidine 20 MG TAB PO SCH (20:19)
[2022-05-10] MEDS: traZODone HCl 50 MG TAB PO PRN (20:19)
[2022-05-10] MEDS: Ondansetron ODT 4 MG TAB PO PRN (20:19)
[2022-05-11] MEDS: Acetaminophen 325 MG TAB PO PRN (06:04)
[2022-05-11] MEDS: Benzonatate 100 MG CAP PO PRN ×2 (06:04→21:38)
[2022-05-11 09:06] LABS: Hemoglobin 9.6 g/dL (12.0-15.5); Mean Corpuscular HGB CONC 31.9 g/dL (32.0-36.0); Mean Corpuscular Volume 100.3 fl (81.6-98.3); Platelet Count 136 10x3/uL (150-450); RBC Distribution Width 17.4 % (11.5-14.5); White Blood Cell (WBC) Count 4.9 10x3/uL (3.5-10.5)
[2022-05-11 09:11] LABS: Anion Gap 11 mmol/L (10-20); BUN (Urea Nitrogen) 16 mg/dL (9.8-20.1); Calc. Creatinine Clearance 80 mL/min (70-130); Calcium 10.2 mg/dL (7.8-10.44); Carbon Dioxide 33 mmol/L (23-31); Chloride 99 mmol/L (98-107); Estimated GFR 33; Glucose 80 mg/dL (80-115); Potassium 3.4 mmol/L (3.5-5.1); Sodium 140 mmol/L (136-145)
[2022-05-11 09:48] LABS: MDiff Complete? YES
[2022-05-11 09:51] LABS: Eosinophils 4 % (0-10); Lymphocytes 17 % (21-51); Monocytes 13 % (0-10); Neutrophil 65 % (42-75); Nucleated RBC 1 % (0)
[2022-05-11 09:54] LABS: Platelet Morphology Comment Appears Decreased
[2022-05-11] MEDS: Furosemide 40 MG TAB PO SCH (10:06)
[2022-05-11] MEDS: Ferrous Sulfate 325 MG TAB PO SCH ×2 (10:06→17:14)
[2022-05-11] MEDS: Alogliptin 6.25 MG TAB PO SCH (10:07)
[2022-05-11] MEDS: Apixaban 5 MG TAB PO SCH ×2 (10:07→21:39)
[2022-05-11] MEDS: Multivit, Therapeutic 1 TAB PO SCH (10:08)
[2022-05-11] MEDS: Loratadine 10 MG TAB PO SCH (10:08)
[2022-05-11] MEDS: Sodium Bicarbonate Tab 325 MG TAB PO SCH ×3 (10:08→21:39)
[2022-05-11] MEDS: Thiamine 100 MG TAB PO SCH (10:09)
[2022-05-11] MEDS: Trospium 20 MG TAB PO SCH (10:09)
[2022-05-11] MEDS: Famotidine 20 MG TAB PO SCH (21:38)
[2022-05-11] MEDS: rOPINIRole HCl 1 MG TAB PO SCH (21:39)
[2022-05-11] MEDS: Atorvastatin Calcium 10 MG TAB PO SCH (21:39)
[2022-05-12] MEDS: Alogliptin 6.25 MG TAB PO SCH (09:37)
[2022-05-12] MEDS: Thiamine 100 MG TAB PO SCH (09:37)
[2022-05-12] MEDS: Multivit, Therapeutic 1 TAB PO SCH (09:37)
[2022-05-12] MEDS: Ferrous Sulfate 325 MG TAB PO SCH ×2 (09:37→15:53)
[2022-05-12] MEDS: Apixaban 5 MG TAB PO SCH ×2 (09:37→21:50)
[2022-05-12] MEDS: Loratadine 10 MG TAB PO SCH (09:37)
[2022-05-12] MEDS: Sodium Bicarbonate Tab 325 MG TAB PO SCH ×3 (09:37→21:49)
[2022-05-12] MEDS: Trospium 20 MG TAB PO SCH (09:37)
[2022-05-12] MEDS: Furosemide 40 MG TAB PO SCH (09:37)
[2022-05-12] MEDS: Ondansetron ODT 4 MG TAB PO PRN ×2 (09:40→17:41)
[2022-05-12] MEDS: Benzonatate 100 MG CAP PO PRN (15:53)
[2022-05-12] MEDS: Atorvastatin Calcium 10 MG TAB PO SCH (21:49)
[2022-05-12] MEDS: Famotidine 20 MG TAB PO SCH (21:49)
[2022-05-12] MEDS: rOPINIRole HCl 1 MG TAB PO SCH (21:49)
[2022-05-12] MEDS: traZODone HCl 50 MG TAB PO PRN (22:01)
[2022-05-13 06:06] VITALS: BMI 67.4
[2022-05-13] MEDS: Acetaminophen 325 MG TAB PO PRN (10:16)
[2022-05-13] MEDS: Thiamine 100 MG TAB PO SCH (10:17)
[2022-05-13] MEDS: Apixaban 5 MG TAB PO SCH (10:17)
[2022-05-13] MEDS: Furosemide 40 MG TAB PO SCH (10:18)
[2022-05-13] MEDS: Loratadine 10 MG TAB PO SCH (10:18)
[2022-05-13] MEDS: Ferrous Sulfate 325 MG TAB PO SCH (10:18)
[2022-05-13] MEDS: Alogliptin 6.25 MG TAB PO SCH (10:19)
[2022-05-13] MEDS: Sodium Bicarbonate Tab 325 MG TAB PO SCH (10:19)
[2022-05-13] MEDS: Trospium 20 MG TAB PO SCH (10:19)
[2022-05-13] MEDS: Multivit, Therapeutic 1 TAB PO SCH (10:19)
[2022-05-13] MEDS: EPOETIN ALFA-EPBX (ESRD) 4,000 UNIT/ML VIAL SC SCH (10:28)
[2022-05-13 12:36] VITALS: TEMP 98
[2022-05-13 14:43] VITALS: BP 137/87
== END 2022-05-13 14:43 | disposition home or self-care (01) | DRG 682 ==
LOC: CSHERS 12:46 → EEVIPCON 20:30 → CSHTELE 20:30
PROVIDERS: ADMIT Hospitalist; ATTEND Family Medicine
PROC: 5A09557 Assistance with Respiratory Ventilation, Greater than 96 Consecutive Hours, Continuous Positive Airway Pressure (ICD-10-PCS; principal; 2022-04-11)
PROC: 30233N1 Transfusion of Nonautologous Red Blood Cells into Peripheral Vein, Percutaneous Approach (ICD-10-PCS; 2022-04-18)
DX: N17.0 Acute kidney failure with tubular necrosis (principal); I21.A1 Myocardial infarction type 2; R57.8 Other shock; I50.33 Acute on chronic diastolic (congestive) heart failure; Z68.43 Body mass index [BMI] 50.0-59.9, adult; I13.0 Hypertensive heart and chronic kidney disease with heart failure and stage 1 through stage 4 chronic kidney disease, or unspecified chronic kidney disease; I48.92 Unspecified atrial flutter; E87.20 Acidosis, unspecified; N18.4 Chronic kidney disease, stage 4 (severe); R53.1 Weakness; E66.01 Morbid (severe) obesity due to excess calories; D63.1 Anemia in chronic kidney disease; E86.0 Dehydration; F20.9 Schizophrenia, unspecified; I48.91 Unspecified atrial fibrillation; G47.33 Obstructive sleep apnea (adult) (pediatric); J45.909 Unspecified asthma, uncomplicated; J44.9 Chronic obstructive pulmonary disease, unspecified; I95.9 Hypotension, unspecified; R53.81 Other malaise; E83.52 Hypercalcemia; D69.6 Thrombocytopenia, unspecified; E11.22 Type 2 diabetes mellitus with diabetic chronic kidney disease; I89.0 Lymphedema, not elsewhere classified; N60.19 Diffuse cystic mastopathy of unspecified breast; Z20.822 Contact with and (suspected) exposure to COVID-19; Z86.16 Personal history of COVID-19; Z87.01 Personal history of pneumonia (recurrent); Z91.041 Radiographic dye allergy status; Z88.8 Allergy status to other drugs, medicaments and biological substances; Z79.899 Other long term (current) drug therapy; Z98.84 Bariatric surgery status; Z85.41 Personal history of malignant neoplasm of cervix uteri; Z90.49 Acquired absence of other specified parts of digestive tract; Z90.710 Acquired absence of both cervix and uterus; Z92.21 Personal history of antineoplastic chemotherapy; Z79.01 Long term (current) use of anticoagulants
CPT/HCPCS: 36415; 36416; 36430; 51701; 71045; 80048; 80053; 80069; 80076; 81001; 81003; 81015; 82140; 82274; 82306; 82550; 82553; 82570; 82728; 82805; 83540; 83550; 83690; 83735; 83880; 83970; 84156; 84300; 84443; 84484; 85025; 86850; 86900; 86901; 87040; 87086; 87811; 93005; 93010; 94640; 94660; 94760; J1160; J1650; J1940; J7030; J7050; J7512; J7620; P9016; P9047; Q0162; Q0169; Q5105

== ENCOUNTER 2022-05-24 09:21 | Inpatient (IN) | payer OTHER ==
[2022-05-24 10:28] LABS: Hemoglobin 10.9 g/dL (12.0-15.5); Mean Corpuscular HGB CONC 32.2 g/dL (32.0-36.0); Mean Corpuscular Hemoglobin 31.7 pg (27.0-33.0); Mean Corpuscular Volume 98.3 fl (81.6-98.3); Mean Platelet Volume 11.4 fl (7.4-10.4); Platelet Count 157 10x3/uL (150-450); RBC Distribution Width 17.3 % (11.5-14.5); Red Blood Cell (RBC) Count 3.44 10x6/uL (3.90-5.03); White Blood Cell (WBC) Count 6.5 10x3/uL (3.5-10.5)
[2022-05-24 10:29] LABS: ALT (SGPT) 21 U/L (8-55); AST (SGOT) 31 U/L (5-34); Albumin 2.9 g/dL (3.4-4.8); Alkaline Phosphatase 105 U/L (40-110); Anion Gap 14 mmol/L (10-20); BUN (Urea Nitrogen) 22 mg/dL (9.8-20.1); Bilirubin, Total 0.8 mg/dL (0.2-1.2); Calc. Creatinine Clearance 0 mL/min (70-130); Calcium 10.1 mg/dL (7.8-10.44); Carbon Dioxide 24 mmol/L (23-31); Chloride 105 mmol/L (98-107); Estimated GFR 31; Globulin 3.7 g/dL (2.4-3.5); Glucose 86 mg/dL (80-115); Potassium 3.8 mmol/L (3.5-5.1); Protein, Total 6.6 g/dL (5.8-8.1); Sodium 139 mmol/L (136-145)
[2022-05-24 10:47] LABS: CKMB 0.7 ng/mL (0-6.6)
[2022-05-24 11:05] LABS: Band 5 % (5-11); Eosinophils 3 % (0-10); Lymphocytes 17 % (21-51); Monocytes 19 % (0-10); Reactive Lymphocytes 2 % (0-10)
[2022-05-24 11:06] LABS: Neutrophil 53 % (42-75)
[2022-05-24 11:07] LABS: Platelet Morphology Comment Appears Adequate
[2022-05-24 11:08] LABS: Anisocytosis SLIGHT = 6-15 cells (100X) (0-5/hpf); Large Platelets SLIGHT; Macrocytosis SLIGHT = 6-15 cells (100X) (0-5/hpf); Ovalocytes SLIGHT = 2-5 cells (100X) (0-1/hpf)
[2022-05-24 11:09] LABS: MDiff Complete? YES
[2022-05-24 11:16] LABS: SARS-CoV-2 NAA Rapid Test Not Detected (NotDetected)
[2022-05-24] MEDS ORDERED: Nitroglycerin 2% Ointment 1 INCH/1 GM Packet ONE (11:56)
[2022-05-24] MEDS ORDERED: Benzonatate 100 MG CAP PO PRN (13:13)
[2022-05-24] MEDS ORDERED: Ondansetron ODT 4 MG TAB PO PRN (13:21)
[2022-05-24] MEDS ORDERED: Senokot S 8.6-50 MG TAB PO PRN (13:21)
[2022-05-24] MEDS ORDERED: Acetaminophen 325 MG TAB PO PRN (13:21)
[2022-05-24] MEDS ORDERED: Ondansetron PF 4 MG/2 ML Vial IVP PRN (13:21)
[2022-05-24 13:36] LABS: Troponin I 0.088 ng/mL (< 0.028)
[2022-05-24 15:13] VITALS: BMI 64.4
[2022-05-24] MEDS: Furosemide 40 MG/4 ML VIAL SLOW IVP SCH (15:13)
[2022-05-24] MEDS: Gabapentin 100 MG CAP PO SCH ×2 (15:49→20:54)
[2022-05-24 16:11] LABS: Troponin I 0.065 ng/mL (< 0.028)
[2022-05-24] MEDS: rOPINIRole HCl 1 MG TAB PO SCH (20:55)
[2022-05-24] MEDS: Metoprolol Tartrate 25 MG TAB PO SCH (20:55)
[2022-05-24] MEDS: Apixaban 5 MG TAB PO SCH (20:55)
[2022-05-24] MEDS ORDERED: OMEPRAZOLE 20 MG PO SCH (21:00)
[2022-05-25] MEDS: Furosemide 40 MG/4 ML VIAL SLOW IVP SCH ×2 (05:39→14:45)
[2022-05-25 07:16] LABS: #Basophils 0.1 10x3/uL (0.0-0.2); #Eosinphils 0.3 10x3/uL (0.0-0.5); #Neutrophils 5.2 10x3/uL (1.5-8.4); %Basophils 0.6 % (0.0-2.0); %Eosinophils 3.8 % (0.0-6.0); %Lymphocytes 14.9 % (18.0-47.0); %Monocytes 13.2 % (0.0-10.0); %Neutrophils 66.7 % (40.0-75.0); Mean Platelet Volume 11.7 fl (7.4-10.4); Platelet Count 173 10x3/uL (150-450); RBC Distribution Width 17.3 % (11.5-14.5); Red Blood Cell (RBC) Count 3.75 10x6/uL (3.90-5.03); White Blood Cell (WBC) Count 7.7 10x3/uL (3.5-10.5)
[2022-05-25 07:50] LABS: Anion Gap 15 mmol/L (10-20); BUN (Urea Nitrogen) 24 mg/dL (9.8-20.1); Calc. Creatinine Clearance 71 mL/min (70-130); Calcium 10.3 mg/dL (7.8-10.44); Carbon Dioxide 26 mmol/L (23-31); Chloride 104 mmol/L (98-107); Estimated GFR 29; Glucose 89 mg/dL (80-115); Potassium 3.6 mmol/L (3.5-5.1); Sodium 141 mmol/L (136-145)
[2022-05-25] MEDS: Metoprolol Tartrate 25 MG TAB PO SCH ×2 (08:27→21:29)
[2022-05-25] MEDS: Atorvastatin Calcium 10 MG TAB PO SCH (08:27)
[2022-05-25] MEDS: Gabapentin 100 MG CAP PO SCH ×3 (08:27→21:26)
[2022-05-25] MEDS: Aspirin Chewable 81 MG TAB PO SCH (08:27)
[2022-05-25] MEDS: Apixaban 5 MG TAB PO SCH ×2 (08:27→21:28)
[2022-05-25] MEDS: rOPINIRole HCl 1 MG TAB PO SCH (21:29)
[2022-05-26 06:21] LABS: #Eosinphils 0.2 10x3/uL (0.0-0.5); #Monocytes 1.2 10x3/uL (0.0-1.1); #Neutrophils 6.1 10x3/uL (1.5-8.4); %Basophils 0.3 % (0.0-2.0); %Eosinophils 2.5 % (0.0-6.0); %Monocytes 12.9 % (0.0-10.0); %Neutrophils 65.4 % (40.0-75.0); Mean Corpuscular HGB CONC 32.2 g/dL (32.0-36.0); Mean Corpuscular Hemoglobin 31.7 pg (27.0-33.0); Mean Corpuscular Volume 98.6 fl (81.6-98.3); Mean Platelet Volume 11.6 fl (7.4-10.4); Platelet Count 161 10x3/uL (150-450); RBC Distribution Width 17.4 % (11.5-14.5); Red Blood Cell (RBC) Count 3.47 10x6/uL (3.90-5.03); White Blood Cell (WBC) Count 9.2 10x3/uL (3.5-10.5)
[2022-05-26 06:35] LABS: Anion Gap 11 mmol/L (10-20); BUN (Urea Nitrogen) 28 mg/dL (9.8-20.1); Calc. Creatinine Clearance 69 mL/min (70-130); Calcium 9.9 mg/dL (7.8-10.44); Carbon Dioxide 29 mmol/L (23-31); Chloride 104 mmol/L (98-107); Estimated GFR 28; Glucose 94 mg/dL (80-115); Sodium 140 mmol/L (136-145)
[2022-05-26] MEDS: Furosemide 40 MG/4 ML VIAL SLOW IVP SCH (06:57)
[2022-05-26] MEDS ORDERED: Midodrine HCl 2.5 MG TAB PO SCH (07:15)
[2022-05-26] MEDS ORDERED: Promethazine 25 MG TAB PO PRN (07:40)
[2022-05-26] MEDS: Atorvastatin Calcium 10 MG TAB PO SCH (08:42)
[2022-05-26] MEDS: Apixaban 5 MG TAB PO SCH ×2 (08:42→22:03)
[2022-05-26] MEDS: Azithromycin 500 MG in Sodium Chloride 0.9% 250 ML 250 ML IVPB SCH (08:42)
[2022-05-26] MEDS: Aspirin Chewable 81 MG TAB PO SCH (08:42)
[2022-05-26] MEDS: Gabapentin 100 MG CAP PO SCH ×3 (08:42→22:02)
[2022-05-26] MEDS: Metoprolol Tartrate 25 MG TAB PO SCH (08:43)
[2022-05-26] MEDS: rOPINIRole HCl 1 MG TAB PO SCH (22:03)
[2022-05-27] MEDS ORDERED: Albumin 25% 25 GM/100 ML BOT IVPB SCH (01:00)
[2022-05-27] MEDS: Metoprolol Tartrate 25 MG TAB PO SCH ×3 (01:04→21:39)
[2022-05-27] MEDS ORDERED: Sodium Chloride 0.9% 250 ML 250 ML IV SCH (01:15)
[2022-05-27] MEDS ORDERED: Midodrine HCl 5 MG TAB PO SCH (04:00)
[2022-05-27] MEDS: Gabapentin 100 MG CAP PO SCH ×3 (08:40→21:22)
[2022-05-27] MEDS: Aspirin Chewable 81 MG TAB PO SCH (08:40)
[2022-05-27] MEDS: Atorvastatin Calcium 10 MG TAB PO SCH (08:40)
[2022-05-27] MEDS: Apixaban 5 MG TAB PO SCH ×2 (08:40→21:23)
[2022-05-27] MEDS: Azithromycin 500 MG in Sodium Chloride 0.9% 250 ML 250 ML IVPB SCH (08:45)
[2022-05-27] MEDS: rOPINIRole HCl 1 MG TAB PO SCH (21:24)
[2022-05-28 08:32] LABS: #Basophils 0.1 10x3/uL (0.0-0.2); #Eosinphils 0.5 10x3/uL (0.0-0.5); #Neutrophils 5.6 10x3/uL (1.5-8.4); %Basophils 0.6 % (0.0-2.0); %Eosinophils 5.5 % (0.0-6.0); %Monocytes 11.4 % (0.0-10.0); %Neutrophils 64.6 % (40.0-75.0); Hemoglobin 9.4 g/dL (12.0-15.5); Mean Corpuscular HGB CONC 31.1 g/dL (32.0-36.0); Mean Corpuscular Volume 102.7 fl (81.6-98.3); Mean Platelet Volume 11.9 fl (7.4-10.4); Platelet Count 159 10x3/uL (150-450); Red Blood Cell (RBC) Count 2.94 10x6/uL (3.90-5.03); White Blood Cell (WBC) Count 8.7 10x3/uL (3.5-10.5)
[2022-05-28 08:49] LABS: Anion Gap 13 mmol/L (10-20); BUN (Urea Nitrogen) 41 mg/dL (9.8-20.1); Calc. Creatinine Clearance 45 mL/min (70-130); Carbon Dioxide 28 mmol/L (23-31); Chloride 102 mmol/L (98-107); Estimated GFR 17; Glucose 88 mg/dL (80-115); Potassium 3.9 mmol/L (3.5-5.1); Sodium 139 mmol/L (136-145)
[2022-05-28] MEDS: Metoprolol Tartrate 25 MG TAB PO SCH ×2 (09:43→21:50)
[2022-05-28] MEDS: Atorvastatin Calcium 10 MG TAB PO SCH (09:43)
[2022-05-28] MEDS: Aspirin Chewable 81 MG TAB PO SCH (09:44)
[2022-05-28] MEDS: Gabapentin 100 MG CAP PO SCH ×3 (09:44→21:51)
[2022-05-28] MEDS: Apixaban 5 MG TAB PO SCH ×2 (09:44→21:52)
[2022-05-28] MEDS: Azithromycin 500 MG in Sodium Chloride 0.9% 250 ML 250 ML IVPB SCH (09:57)
[2022-05-28] MEDS: rOPINIRole HCl 1 MG TAB PO SCH (21:52)
[2022-05-29] MEDS ORDERED: Sodium Chloride 0.9% 500 ML IV SCH (07:45)
[2022-05-29] MEDS: Metoprolol Tartrate 25 MG TAB PO SCH ×2 (08:48→22:36)
[2022-05-29] MEDS: Azithromycin 500 MG in Sodium Chloride 0.9% 250 ML 250 ML IVPB SCH (08:48)
[2022-05-29] MEDS: Gabapentin 100 MG CAP PO SCH ×3 (08:48→22:38)
[2022-05-29] MEDS: Apixaban 5 MG TAB PO SCH ×2 (08:49→22:36)
[2022-05-29] MEDS: Aspirin Chewable 81 MG TAB PO SCH (08:49)
[2022-05-29] MEDS: Atorvastatin Calcium 10 MG TAB PO SCH (08:49)
[2022-05-29] MEDS: rOPINIRole HCl 1 MG TAB PO SCH (22:38)
[2022-05-30 04:50] LABS: Anion Gap 12 mmol/L (10-20); BUN (Urea Nitrogen) 40 mg/dL (9.8-20.1); Calc. Creatinine Clearance 51 mL/min (70-130); Calcium 9.9 mg/dL (7.8-10.44); Carbon Dioxide 27 mmol/L (23-31); Chloride 103 mmol/L (98-107); Estimated GFR 20; Glucose 82 mg/dL (80-115); Potassium 4.2 mmol/L (3.5-5.1); Sodium 138 mmol/L (136-145)
[2022-05-30] MEDS: Metoprolol Tartrate 25 MG TAB PO SCH ×2 (08:49→21:49)
[2022-05-30] MEDS: Azithromycin 500 MG in Sodium Chloride 0.9% 250 ML 250 ML IVPB SCH ×2 (08:49→08:50)
[2022-05-30] MEDS: Aspirin Chewable 81 MG TAB PO SCH (08:49)
[2022-05-30] MEDS: Atorvastatin Calcium 10 MG TAB PO SCH (08:50)
[2022-05-30] MEDS: Gabapentin 100 MG CAP PO SCH ×3 (08:50→21:44)
[2022-05-30] MEDS: Apixaban 5 MG TAB PO SCH ×2 (08:50→21:44)
[2022-05-30] MEDS ORDERED: traZODone HCl 50 MG TAB PO PRN (11:19)
[2022-05-30] MEDS: rOPINIRole HCl 1 MG TAB PO SCH (21:43)
[2022-05-31 04:09] LABS: Anion Gap 12 mmol/L (10-20); BUN (Urea Nitrogen) 37 mg/dL (9.8-20.1); Calc. Creatinine Clearance 55 mL/min (70-130); Calcium 10.3 mg/dL (7.8-10.44); Carbon Dioxide 28 mmol/L (23-31); Chloride 104 mmol/L (98-107); Estimated GFR 22; Glucose 78 mg/dL (80-115); Potassium 4.4 mmol/L (3.5-5.1); Sodium 140 mmol/L (136-145)
[2022-05-31] MEDS: Apixaban 5 MG TAB PO SCH ×2 (08:40→23:03)
[2022-05-31] MEDS: Azithromycin 250 MG TAB PO SCH (08:40)
[2022-05-31] MEDS: Gabapentin 100 MG CAP PO SCH ×3 (08:41→23:02)
[2022-05-31] MEDS: Metoprolol Tartrate 25 MG TAB PO SCH ×2 (08:41→23:03)
[2022-05-31] MEDS: Aspirin Chewable 81 MG TAB PO SCH (08:41)
[2022-05-31] MEDS: Atorvastatin Calcium 10 MG TAB PO SCH (08:41)
[2022-05-31] MEDS: rOPINIRole HCl 1 MG TAB PO SCH (23:03)
[2022-06-01 05:24] LABS: Anion Gap 9 mmol/L (10-20); BUN (Urea Nitrogen) 36 mg/dL (9.8-20.1); Calc. Creatinine Clearance 58 mL/min (70-130); Calcium 10.4 mg/dL (7.8-10.44); Carbon Dioxide 29 mmol/L (23-31); Chloride 105 mmol/L (98-107); Estimated GFR 23; Glucose 80 mg/dL (80-115); Potassium 4.4 mmol/L (3.5-5.1); Sodium 139 mmol/L (136-145)
[2022-06-01 07:43] VITALS: BP 99/57; TEMP 97.6
[2022-06-01] MEDS: Gabapentin 100 MG CAP PO SCH (08:52)
[2022-06-01] MEDS: Apixaban 5 MG TAB PO SCH (08:53)
[2022-06-01] MEDS: Azithromycin 250 MG TAB PO SCH (08:53)
[2022-06-01] MEDS: Atorvastatin Calcium 10 MG TAB PO SCH (08:53)
[2022-06-01] MEDS: Metoprolol Tartrate 25 MG TAB PO SCH (08:53)
[2022-06-01] MEDS: Aspirin Chewable 81 MG TAB PO SCH (08:53)
== END 2022-06-01 12:28 | disposition home or self-care (01) | DRG 193 ==
LOC: CSHERS 09:21 → CSHTELE 14:46 → INTOOBSV 14:46 → OBSVTOIN 05-26 14:28
PROVIDERS: ADMIT Hospitalist; ATTEND Family Medicine
PROC: 5A09457 Assistance with Respiratory Ventilation, 24-96 Consecutive Hours, Continuous Positive Airway Pressure (ICD-10-PCS; principal; 2022-05-26)
PROC: 30233J1 Transfusion of Nonautologous Serum Albumin into Peripheral Vein, Percutaneous Approach (ICD-10-PCS; 2022-05-27)
DX: J18.9 Pneumonia, unspecified organism (principal); I50.43 Acute on chronic combined systolic (congestive) and diastolic (congestive) heart failure; J96.01 Acute respiratory failure with hypoxia; J96.02 Acute respiratory failure with hypercapnia; I13.0 Hypertensive heart and chronic kidney disease with heart failure and stage 1 through stage 4 chronic kidney disease, or unspecified chronic kidney disease; I24.8 Other forms of acute ischemic heart disease; I48.92 Unspecified atrial flutter; I48.19 Other persistent atrial fibrillation; Z68.44 Body mass index [BMI] 60.0-69.9, adult; N17.9 Acute kidney failure, unspecified; J98.11 Atelectasis; J40 Bronchitis, not specified as acute or chronic; E78.5 Hyperlipidemia, unspecified; D63.1 Anemia in chronic kidney disease; G25.81 Restless legs syndrome; E66.01 Morbid (severe) obesity due to excess calories; Z20.822 Contact with and (suspected) exposure to COVID-19; E11.22 Type 2 diabetes mellitus with diabetic chronic kidney disease; E88.09 Other disorders of plasma-protein metabolism, not elsewhere classified; G47.33 Obstructive sleep apnea (adult) (pediatric); F31.9 Bipolar disorder, unspecified; F20.9 Schizophrenia, unspecified; N64.4 Mastodynia; Z88.8 Allergy status to other drugs, medicaments and biological substances; Z79.899 Other long term (current) drug therapy; Z79.82 Long term (current) use of aspirin; Z79.01 Long term (current) use of anticoagulants; Z90.49 Acquired absence of other specified parts of digestive tract; Z90.710 Acquired absence of both cervix and uterus
CPT/HCPCS: 36415; 36416; 71045; 80048; 80053; 82553; 83605; 83880; 84484; 85025; 87040; 87149; 93005; 94660; 94760; 96374; 96375; 96376; G0378; J0456; J1940; J7030; J7050; P9047

== ENCOUNTER 2022-09-09 16:21 | Emergency (ER) | payer MEDICARE, OTHER ==
[2022-09-09] MEDS ORDERED: HYDROcodone/Acetaminophen 5/325 mg Tablet ONE (19:39)
== END 2022-09-09 23:00 | disposition home or self-care (01) ==
LOC: CSHERS 16:21
DX: M17.11 Unilateral primary osteoarthritis, right knee (principal); E11.22 Type 2 diabetes mellitus with diabetic chronic kidney disease; N18.6 End stage renal disease; I12.0 Hypertensive chronic kidney disease with stage 5 chronic kidney disease or end stage renal disease

== ENCOUNTER 2023-05-20 18:29 | Emergency (ER) | payer OTHER ==
[2023-05-20] MEDS ORDERED: Prochlorperazine 10 MG/2 ML VIAL ONE (19:40)
[2023-05-20 20:19] LABS: SARS-CoV-2 NAA Rapid Test Not Detected (NotDetected)
[2023-05-20] MEDS ORDERED: Azithromycin 500 MG VIAL ONE (20:39)
[2023-05-20] MEDS ORDERED: cefTRIAXone (ROCEPHIN) 2 GM VIAL ONE (20:40)
[2023-05-20 20:41] LABS: #Eosinphils 0.2 10x3/uL (0.0-0.5); #Monocytes 0.4 10x3/uL (0.0-1.1); #Neutrophils 4.3 10x3/uL (1.5-8.4); %Basophils 0.5 % (0.0-2.0); %Eosinophils 4.1 % (0.0-6.0); %Lymphocytes 13.7 % (18.0-47.0); %Monocytes 6.5 % (0.0-10.0); Hematocrit 23.5 % (34.9-44.5); Hemoglobin 7.5 g/dL (12.0-15.5); Mean Corpuscular HGB CONC 31.9 g/dL (32.0-36.0); Mean Corpuscular Hemoglobin 35.5 pg (27.0-33.0); Mean Corpuscular Volume 111.4 fl (81.6-98.3); Mean Platelet Volume 10.7 fl (7.4-10.4); Platelet Count 142 10x3/uL (150-450); RBC Distribution Width 15.9 % (11.5-14.5); Red Blood Cell (RBC) Count 2.11 10x6/uL (3.90-5.03); White Blood Cell (WBC) Count 5.9 10x3/uL (3.5-10.5)
[2023-05-20 20:51] LABS: ALT (SGPT) Less than 7 U/L (8-55); AST (SGOT) 11 U/L (5-34); Albumin 2.4 g/dL (3.4-4.8); Alkaline Phosphatase 128 U/L (40-110); Anion Gap 12 mmol/L (10-20); BUN (Urea Nitrogen) 27 mg/dL (9.8-20.1); Bilirubin, Total 0.3 mg/dL (0.2-1.2); Calc. Creatinine Clearance 0 mL/min (70-130); Calcium 8.7 mg/dL (7.8-10.44); Carbon Dioxide 23 mmol/L (23-31); Chloride 105 mmol/L (98-107); Estimated GFR 22; Globulin 4.5 g/dL (2.4-3.5); Glucose 99 mg/dL (80-115); Potassium 3.8 mmol/L (3.5-5.1); Protein, Total 6.9 g/dL (5.8-8.1); Sodium 136 mmol/L (136-145)
[2023-05-20 20:55] LABS: Troponin I 0.017 ng/mL (< 0.028)
== END 2023-05-21 01:09 | disposition short-term general hospital (02) ==
LOC: CSHERS 18:29
DX: R06.02 Shortness of breath (principal); R53.81 Other malaise; I13.2 Hypertensive heart and chronic kidney disease with heart failure and with stage 5 chronic kidney disease, or end stage renal disease; E11.22 Type 2 diabetes mellitus with diabetic chronic kidney disease; N18.6 End stage renal disease; I50.9 Heart failure, unspecified
CPT/HCPCS: 36415; 71045; 80053; 83605; 83880; 84484; 85025; 87040; 93005; 96361; 96365; 96375; J0456; J0696; J0780